=== PATIENT | male | born 1955 | race African-American/Black ===

== ENCOUNTER 2019-11-13 13:55 | Inpatient (IN) ==
[2019-11-13] MEDS ORDERED: ASPIRIN PR ONE (14:11)
[2019-11-13] MEDS ORDERED: ASPIRIN PO ONE (14:11)
--- NOTE | 2019-11-13 14:26 | EKG Report ---
Test Performed on : 11/13/2019 2:11:35 PM Test Reason : SOB Blood Pressure : / mmHG Vent. Rate : 110 BPM Atrial Rate : 110 BPM P-R Int : 134 ms QRS Dur : 094 ms QT Int : 338 ms P-R-T Axes : 069 060 060 degrees QTc Int : 457 ms Sinus tachycardia. Possible Left atrial enlargement Borderline ECG When compared with ECG of 09-SEP-2014 01:34, No significant change was found Unconfirmed Result
[2019-11-13 14:28] LABS: BE 1.5 mmoll (-3.0-3.0); BLOOD TYPE ARTERIAL; HCO3-(ACT) 25.7 mmoll (20.0-26.0); METHB 1.1 % (0.0-1.5); O2(CT) 16.1 mL/dL (15.0-23.0); PCO2(98.6) 34 mmHg (35-45); SAMPLE BLOOD; SAO2 87.6 % (95.0-100.0); THB 13.7 g/dL (11.5-17.4); pH(98.6) 7.47 (7.35-7.45)
[2019-11-13 14:38] LABS: MODALITY ROOM AIR; O2HB 83.7 % (95.0-99.0); PO2(98.6) 46 mmHg (60-100)
[2019-11-13 14:39] LABS: ALLEN TEST NO
[2019-11-13 14:45] LABS: BASO# 0.09 X1000 (0.0-0.2); BASO% 0.5 % (0.0-0.8); EOS# 1.42 X1000 (0.0-0.7); EOS% 8.3 % (0.0-10.0); IMM GRAN# 0.05 X1000 (0.0-0.04); IMM GRAN% 0.3 % (0.0-0.5); LYMPH# 1.77 X1000 (1.2-3.4); LYMPH% 10.3 % (20.5-51.1); MCH 30.1 PG (27-31); MCHC 31.7 g/dL (33-37); MCV 94.9 FL (81-99); MONO# 1.38 X1000 (0.11-0.59); MONO% 8.1 % (1.7-9.3); NEUT# 12.41 X1000 (1.4-6.5); NEUT% 72.5 % (42.2-75.2); PLT 443 X1000 (130-400); RBC 4.32 XMIL (4.7-6.1); RDW 12.4 % (11.5-14.5); WBC 17.12 X1000 (4.8-10.8)
--- NOTE | 2019-11-13 14:52 | Diag Imaging Result Doc PS360 ---
EXAM: CHEST-2 VIEWS - 11/13/2019 HISTORY: SOB TECHNIQUE: Chest two views COMPARISON: 10/27/2019 FINDINGS: Heart size is normal. There are bilateral interstitial and patchy alveolar infiltrates which have increased. There is a possible small right pleural effusion. There is no evidence of pneumothorax. IMPRESSION: Bilateral infiltrates which are increased compared to prior. Electronically signed by Jesus Villegas 11/13/2019 2:50 PM
[2019-11-13 14:59] LABS: INR 0.98; PROTIME 13.5 Seconds (11.0-16.0); PTT 35.4 Seconds (22.3-41.8)
[2019-11-13 15:09] LABS: AGAP 12; ALBUMIN 3.4 g/dL (3.5-5.0); ALKALINE PHOSPHATASE 92 U/L (32-122); BUN 12 mg/dL (8-22); CALCIUM 8.9 mg/dL (8.8-10.2); CHLORIDE 101 mmol/L (98-107); COSMO 276; CREATININE 0.7 mg/dL (0.7-1.2); ESTIMATED GFR > 60; GLUCOSE 110 mg/dL (70-104); GOT 20 U/L (10-34); GPT 26 U/L (10-44); POTASSIUM 4.3 mmol/L (3.5-5.1); SODIUM 138 mmol/L (136-145); TCO2 25 mmol/L (25-35)
--- NOTE | 2019-11-13 16:17 | Diag Imaging Result Doc PS360 ---
EXAM: CT THORAX W/CONTRAST - 11/13/2019 HISTORY: pneumonia TECHNIQUE: CT thorax with intravenous contrast COMPARISON: 11/13/2019 chest radiographs FINDINGS: There are emphysematous changes. There is apparent chronic interstitial lung disease with honeycombing. There are scattered patchy and nodular opacities. One of these, which is located at the lateral right upper lobe, is partially calcified. There are also some calcified right hilar lymph nodes. There is also noncalcified bilateral hilar and mediastinal adenopathy. These findings suggest the possibility of granulomatous disease such as sarcoidosis. The possibility of superimposed infectious process on chronic disease cannot be excluded. There are retained secretions in left upper lobe bronchi. IMPRESSION: Emphysematous changes. Probable chronic interstitial lung disease with honeycombing. Bilateral hilar and mediastinal adenopathy. Sarcoidosis is a consideration. Scattered patchy and nodular opacities which could relate to sarcoidosis, or to other superimposed infectious process. This exam was performed using automated exposure control, adjustment of mA or kV according to patient size, and/or use of iterative reconstruction technique. Electronically signed by Jesus Villegas 11/13/2019 4:15 PM
--- NOTE | 2019-11-13 16:33 | PROVIDER DOCUMENTATION ---
This chart was entered by Amalia Monroy Scribe, acting as scribe for Mitch Lyons MD. HPI-Respiratory General - General Chief Complaint: SEPSIS ALERT - P Stated Complaint: SOB Time Seen by Provider: 11/13/19 14:18 Source: patient, family () Allergies/Adverse Reactions: Patient Allergies Allergy/AdvReac Type Severity Reaction Status Date / Time No Known Allergies Allergy Verified 10/27/19 12:29 Home Medications: Home Medication List Medication Instructions Recorded Confirmed Last Taken Type Azithromycin [Zithromax] 250 mg PO DAILY #4 tab 10/27/19 Unknown Rx Benzonatate [Tessalon] 100 mg PO TID PRN PRN #15 cap 10/27/19 Unknown Rx - History of Present Illness-Resp Nature of Presenting Problem: 64 yobm presents to the ed with c/o sob with exertion for 2 weeks. pt was dx with PNA on 10/27/19 by er physcian and pt sts sx have not improved. pt on triage pt had 85% on RA and now on 2LPM at 95% via NC. pt on exam is happy and pleasant and is nontoxic in appearance. pt sts recently quit smoking Quality of Pain: reports: aching Severity in ED: reports: mild Onset/Duration: reports: other (2 weeks) Timing: reports: still present, getting worse Context: reports: other (recent PNA) Cough Quality/Degree: reports: mild, dry cough Episode Frequency: frequent episodes Current Respiratory Medication Therapy: Initiated see nurses note Modifying Factors: improves with: oxygen, sitting upright. worse with: exertion, coughing Associated Symptoms: reports: chest pain/soreness, cough, hyperventilating, shortness of breath. denies: dizziness, wheezing Similar Symptoms Previously?: Yes (PNA) Recently seen or treated by another doctor?: Yes (seen in ed 10/27/19) Review of Systems - Adult - REVIEW OF SYSTEMS - ADULT Constitutional: denies: chills, fever Eyes: reports: no symptoms reported Ears, Nose, Mouth & Throat: reports: no symptoms reported Cardiovascular: denies: chest pain, palpitations Respiratory: reports: see HPI, cough, dyspnea on exertion, shortness of breath. denies: wheezing Gastrointestinal: denies: diarrhea, nausea, vomiting Genitourinary: reports: no symptoms reported Musculoskeletal: denies: back pain, neck pain Integumentary: reports: no symptoms reported Neurological: reports: no symptoms reported Psychiatric: reports: no symptoms reported Endocrine: reports: no symptoms reported Hematologic/Lymphatic: reports: no symptoms reported Allergic/Immunologic: reports: no symptoms reported All Other Systems: Reviewed and Negative Past History - Adult - PAST MEDICAL HISTORY-ADULT Review of Records: reports: Old Records Reviewed, Nursing Assessment Review, Medications Reviewed, Social history reviewed & non-contributory. Major Childhood Illnesses: reports: denies history Cardiovascular: reports: HTN Respiratory: reports: denies history Gastrointestinal: reports: denies history Genitourinary: reports: denies history Musculoskeletal: reports: denies history Neurological: reports: denies history Psychiatric: reports: denies history Endocrine/Immune: reports: denies history Other Conditions: reports: denies history - PRIOR SURGERIES/PROCEDURES Surgical/Procedure History: reports: none - IMMUNIZATION STATUS Childhood Immunizations: See Nurse Assessment Flu Vaccine: See Nurse Assessment - FAMILY HISTORY Family History: reviewed, not pertinent - SOCIAL HISTORY Smoking: quit less than 1 year Substance Use: denies Living Situation: family Physical Exam-General - PHYSICAL EXAM-ADULT Initial Vital Signs Reviewed: Yes - CONSTITUTIONAL General Appearance: appears well, alert, no apparent distress - EYES Eyes: PERRL/EOMI, pink conjunctivae - HEAD, EARS, NOSE, MOUTH & THROAT HENMT: moist mucous membranes, dental decay - NECK Neck: non-tender, full range of motion, supple, normal inspection - RESPIRATORY Respiratory: chest non-tender, rhonchi, increased rate (24) - CARDIOVASCULAR Cardiovascular: normal peripheral pulses, tachycardia (111) - CHEST (BREASTS) Chest/Breast: deferred - GASTROINTESTINAL (ABDOMEN) Abdominal Exam: normal bowel sounds, non tender, soft - GENITOURINARY Male Genitalia: deferred Rectal Exam: deferred Hemoccult Exam: deferred - LYMPHATIC Lymphatic: no adenopathy - MUSCULOSKELETAL Back Exam: normal inspection, no CVA tenderness, no vertebral tenderness Extremity: normal range of motion, non-tender, normal gait, normal inspection - SKIN Integumentary: normal color, normal turgor, warm/dry - NEUROLOGIC Neurologic: grossly normal - PSYCHIATRIC Psych/Mental Status: normal mood/affect, normal thought content, normal thought process, oriented x 3 Progress - PLAN OF CARE/RESULTS Progress/Plan/Lab Results: Vital Signs - 8 hr 11/13/19 14:03 Temperature 98.6 F Pulse Rate 111 H Respiratory Rate 24 Blood Pressure 146/77 O2 Sat by Pulse Oximetry 85 L Laboratory Results - last 24 hr 11/13/19 11/13/19 11/13/19 14:02 14:33 14:33 WBC RBC Hgb Hct MCV MCH MCHC RDW Std Deviation Plt Count MPV Immature Gran % (Auto) Neut % (Auto) Lymph % (Auto) Riley % (Auto) Eos % (Auto) Baso % (Auto) Immature Gran # (Auto) Neut # (Auto) Lymph # (Auto) Riley # (Auto) Eos # (Auto) Baso # (Auto) PT INR PTT (Actin FS) D-Dimer, Quantitative 2.61 H Specimen Type ARTERIAL Sample Site R BRACHIAL pH 7.47 H pCO2 34 L pO2 46 L* HCO3 25.7 Base Excess 1.5 Oxyhemoglobin 83.7 L* ABG O2 Sat (Calculated) 16.1 ABG O2 Saturation 87.6 L ABG Carboxyhemoglobin 3.40 H ABG Methemoglobin 1.1 Dillan Test NO A-a O2 Difference 61.0 Total Hemoglobin 13.7 Lactate 0.90 Blood Gas Modality ROOM AIR FiO2 % 21.0 Sodium 138 Potassium 4.3 Chloride 101 Carbon Dioxide 25 Anion Gap 12 BUN 12 Creatinine 0.7 Estimated GFR/1.73 m2 > 60 BUN/Creatinine Ratio 17 Glucose 110 H Calculated Osmolality 276 Calcium 8.9 Total Bilirubin 0.30 AST 20 ALT 26 Alkaline Phosphatase 92 Creatine Kinase Troponin T Ylh-C-Scuxcntbfdb Pept Total Protein 7.0 Albumin 3.4 L Globulin 4.0 Albumin/Globulin Ratio 1.0 Plasma Lactate 11/13/19 11/13/19 11/13/19 14:33 14:33 14:33 WBC RBC Hgb Hct MCV MCH MCHC RDW Std Deviation Plt Count MPV Immature Gran % (Auto) Neut % (Auto) Lymph % (Auto) Riley % (Auto) Eos % (Auto) Baso % (Auto) Immature Gran # (Auto) Neut # (Auto) Lymph # (Auto) Riley # (Auto) Eos # (Auto) Baso # (Auto) PT 13.5 INR 0.98 PTT (Actin FS) 35.4 D-Dimer, Quantitative Specimen Type Sample Site pH pCO2 pO2 HCO3 Base Excess Oxyhemoglobin ABG O2 Sat (Calculated) ABG O2 Saturation ABG Carboxyhemoglobin ABG Methemoglobin Dillan Test A-a O2 Difference Total Hemoglobin Lactate Blood Gas Modality FiO2 % Sodium Potassium Chloride Carbon Dioxide Anion Gap BUN Creatinine Estimated GFR/1.73 m2 BUN/Creatinine Ratio Glucose Calculated Osmolality Calcium Total Bilirubin AST ALT Alkaline Phosphatase Creatine Kinase Troponin T < 0.010 Mrd-K-Uxlkiijgclv Pept 48 Total Protein Albumin Globulin Albumin/Globulin Ratio Plasma Lactate 11/13/19 11/13/19 11/13/19 14:33 14:33 14:33 WBC 17.12 H RBC 4.32 L Hgb 13.0 L Hct 41.0 L MCV 94.9 MCH 30.1 MCHC 31.7 L RDW Std Deviation 12.4 Plt Count 443 H MPV 11.0 H Immature Gran % (Auto) 0.3 Neut % (Auto) 72.5 Lymph % (Auto) 10.3 L Riley % (Auto) 8.1 Eos % (Auto) 8.3 Baso % (Auto) 0.5 Immature Gran # (Auto) 0.05 H Neut # (Auto) 12.41 H Lymph # (Auto) 1.77 Riley # (Auto) 1.38 H Eos # (Auto) 1.42 H Baso # (Auto) 0.09 PT INR PTT (Actin FS) D-Dimer, Quantitative Specimen Type Sample Site pH pCO2 pO2 HCO3 Base Excess Oxyhemoglobin ABG O2 Sat (Calculated) ABG O2 Saturation ABG Carboxyhemoglobin ABG Methemoglobin Dillan Test A-a O2 Difference Total Hemoglobin Lactate Blood Gas Modality FiO2 % Sodium Potassium Chloride Carbon Dioxide Anion Gap BUN Creatinine Estimated GFR/1.73 m2 BUN/Creatinine Ratio Glucose Calculated Osmolality Calcium Total Bilirubin AST ALT Alkaline Phosphatase Creatine Kinase 42 Troponin T Bln-F-Urthdiltoyo Pept Total Protein Albumin Globulin Albumin/Globulin Ratio Plasma Lactate 0.9 Orders Category Date Time Status Cardiac Monitoring DIRECTED Care 11/13/19 14:12 Active Oxygen Therapy- ED Nursing DIRECTED Care 11/13/19 14:12 Active Saline Loc NOW Care 11/13/19 14:12 Active CHEST-2 VIEWS [RAD] Stat Exams 11/13/19 14:[address] THORAX W/CONTRAST [CT] Stat Exams 11/13/19 15:13 Completed ABG [RESP] Routine Lab 11/13/19 14:02 Completed BLOOD CULTURE [BLDCUL] Stat Lab 11/13/19 14:20 Ordered CBC WITH ELECTRONIC DIFF [HEME] Stat Lab 11/13/19 14:33 Completed CK PROFILE [SP CHEM] Stat Lab 11/13/19 14:33 Completed COMPREHENSIVE METABOLIC PANEL [CHEM] Stat Lab 11/13/19 14:33 Completed D-DIMER [COAG] Stat Lab 11/13/19 14:33 Completed LACTATE, PLASMA [CHEM] Stat Lab 11/13/19 14:33 Completed PRO B-NATRIURETIC PEPTIDE Stat Lab 11/13/19 14:33 Completed PROTIME WITH INR [COAG] Stat Lab 11/13/19 14:33 Completed PTT [COAG] Stat Lab 11/13/19 14:33 Completed TROPONIN T Stat Lab 11/13/19 14:33 Completed Aspirin Med 11/13/19 14:11 Discontinued 300 mg WV NOW ONE Aspirin Med 11/13/19 14:11 Discontinued 325 mg PO NOW ONE CP/SOB/Palp >45 yrs of Age Stat Oth 11/13/19 14:11 Ordered EKG [EKG] Stat Ther 11/13/19 14:12 Draft Result Diagrams: 11/13/19 14:33 11/13/19 14:33 - REASSESSMENT Reassessment #1 Time Reassessed: 15:36 Status: improving - EKG 1 Time of EKG reading by physician:: 14:11 EKG Read and Signed by:: Mitch Lyons EKG Interpretation (*Must complete 3 of following elements*): Normal (borderline) Rate: 110 Rhythm: sinsu tachycardia Falcon: normal QRS: other (possible left atrial enlargement) W[place] Interval: normal ST Wave: normal - XRAY 1 XRAY: Bilateral XRAY Study: Chest Impression: See EMR Report (EXAM: CHEST-2 VIEWS - 11/13/2019 HISTORY: SOB TECHNIQUE: Chest two views COMPARISON: 10/27/2019 FINDINGS: Heart size is normal. There are bilateral interstitial and patchy alveolar infiltrates which have increased. There is a possible small right pleural effusion. There is no evidence of pneumothorax. IMPRESSION: Bilateral infiltrates which are increased compared to prior. Electronically signed by Jesus Villegas 11/13/2019 2:50 PM 11/13/19 1450 Interpreting Physician: Jesus Villegas MD Dictated Date/Time: 11/13/19 1448 cc: Mitch Lyons MD; None,PCP) - CT/MRI 1 CT Study: Thorax Impression: See EMR Report (EXAM: CT THORAX W/CONTRAST - 11/13/2019 HISTORY: pneumonia TECHNIQUE: CT thorax with intravenous contrast COMPARISON: 11/13/2019 chest radiographs FINDINGS: There are emphysematous changes. There is apparent chronic interstitial lung disease with honeycombing. There are scattered patchy and nodular opacities. One of these, which is located at the lateral right upper lobe, is partially calcified. There are also some calcified right hilar lymph nodes. There is also noncalcified bilateral hilar and mediastinal adenopathy. These findings suggest the possibility of granulomatous disease such as sarcoidosis. The possibility of superimposed infectious process on chronic disease cannot be excluded. There are retained secretions in left upper lobe bronchi. IMPRESSION: Emphysematous changes. Probable chronic interstitial lung disease with honeycombing. Bilateral hilar and mediastinal adenopathy. Sarcoidosis is a consideration. Scattered patchy and nodular opacities which could relate to sarcoidosis, or to other superimposed infectious process. This exam was performed using automated exposure control, adjustment of mA or kV according to patient size, and/or use of iterative reconstruction technique. Electronically signed by Jesus Villegas 11/13/2019 4:15 PM 11/13/19 1615 Interpreting Physician: Jesus Villegas MD Dictated Date/Time: 11/13/19 1600 cc: Mitch Lyons MD; None,PCP) - CONSULTS/PCP/HOSPITALIST Notification #1 *Consult/PCP/Hospitalist*: hospitalist dr maki Time Discussed: 15:57 Consult Disposition: Will see in ED Departure - Departure Date of Disposition Decision: 11/13/19 Time of Disposition Decision: 16:00 DIAGNOSIS: COPD with hypoxia, Interstitial lung disorders PNA (pneumonia) Qualifiers: Pneumonia type: due to unspecified organism Laterality: bilateral Lung locat ion: unspecified part of lung Qualified Code(s): J18.9 - Pneumonia, unspecified organism Disposition: ADMITTED INPATIENT 09 Certified Medical Emergency: Emergent Condition: Stable Referrals and Follow-Ups: None,PCP [Primary Care Provider] - - Critical Care Note This patient required my direct & personal management of CC.: Yes Total Time (mins): 34 Critical Care Statement: This patient required my direct personal management to treat or rule out processes, the absence of which, could potentiallly result in sudden, clinically significant life or limb threatening deterioration. Attestation - Physician/ MILLER Attestation Patient care was provided by Advanced Practice Provider:: No The physician spent face to face time with patient:: Yes Advanced Practice Provider documentation review:: Supervising physician onsite and consulted in the evaluation and care of this patient. The physician did have a face to face encounter with the patient. This chart was documented by the indicated scribe, (Amalia Monroy Scribe) and accurately reflects the services I performed and decisions made by me, Mitch Lyons MD, as attested by the provider's signature.
[2019-11-13] MEDS ORDERED: MAXIPIME 1 GM in NS 50 ML IV SCH (18:36)
[2019-11-13] MEDS ORDERED: TYLENOL PO PRN (18:36)
[2019-11-13] MEDS ORDERED: DUONEB (A & A) INH PRN (18:36)
[2019-11-13] MEDS ORDERED: VANCOMYCIN IV PER PHARMACY MISC SCH (18:36)
[2019-11-13] MEDS ORDERED: MAXIPIME ONE (18:53)
--- NOTE | 2019-11-13 18:53 | HISTORY AND PHYSICAL ---
PRIMARY CARE PROVIDER: Is with the [facility] in [place]. CHIEF COMPLAINT: Shortness of breath. HISTORY OF PRESENT ILLNESS: Mr. Fung is a 64-year-old male who really claims no past medical history however he does abuse tobacco and half pack per day has done so for more than 20 years. He reports he was treated in the ED for pneumonia back on the 27 of October. He felt that he got better with treatment. However a couple days later his shortness of breath returned. [facility]. They gave him I believe Zyrtec and Flonase however his shortness of breath continued to get progressively worse so he reported back to the ED today. His O2 saturations were found to be at 85%. CT of the chest was obtained that showed emphysematous changes, probable chronic interstitial lung disease with honeycombing, bilateral hilar and mediastinal adenopathy sarcoidosis is a consideration, scattered patchy and nodular opacities which could relate to sarcoidosis or other superimposed infectious processes. He does have a white count of 17, he does have a productive cough that had some whitish green sputum, had 2 negative lactates. Given these findings we will transfer him to [facility] further workup by pulmonology continue him on supplemental O2, bronchodilators, aggressive pulmonary toilet and broad-spectrum antibiotics. PAST MEDICAL HISTORY: Tobacco use and abuse. PAST SURGICAL HISTORY: Denies. FAMILY HISTORY: Father with stomach cancer at the age of 88 I believe. Denied any coronary artery disease. No diabetes. SOCIAL HISTORY: He is , is at the bedside. He has a total of 7 children. He is a . He has been a half pack per day smoker for over 20 years maybe more. He quit drinking over 3 years ago. He does not vape. He does not do any marijuana or illicit drugs. 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 He has never been diagnosed with TB. PHYSICAL EXAMINATION: VITAL SIGNS: Temperature is 98.6 degrees, heart rate 104, respiration 26, blood pressure 152/80, O2 is 94% on 2 L nasal cannula. GENERAL: Mr. Fung is a pleasant 64-year-old male who is sitting up in the bed in no acute distress. He does have a productive cough spitting out some whitish greenish sputum, very pleasant demeanor. HEENT: Atraumatic, normocephalic. PERRL. NECK: Supple. Trachea midline. CARDIOVASCULAR: S1, S2 appreciated. No murmurs, gallops, or rubs noted. RESPIRATORY: Lung sounds scattered rhonchi throughout all lung lopez. Could not appreciate any wheezes. GI: Flat, soft, nontender, nondistended. Positive bowel sounds 4 quads. Lower extremities were negative for edema. NEURO: There were no focal deficits, very pleasant. DIAGNOSTIC DATA: Chest CT emphysema changes, probable chronic interstitial lung disease with honeycombing, bilateral hilar and mediastinal adenopathy, sarcoidosis is a consideration, scattered patchy nodular opacities which could relate to sarcoidosis or other superimposed infectious process. LABORATORY DATA: White count 17, hemoglobin and hematocrit 13 and 41, platelet count is 443,000, ABG pH was 7.47, pCO2 34, PO2 46, base excess was 1.5, oxyhemoglobin 87, O2 saturation was 87.6% on room air. Sodium 138, potassium 4.3, BUN 12, creatinine 0.7, blood glucose is 110. Troponin was less than 0.010, albumin was 3.4. First lactate 0.8, second lactate 0.8. EKG sinus tachycardia with possible left atrial enlargement at 110 beats per minute. ASSESSMENT AND PLAN: 1. Hypoxemia upon arrival improved with supplemental O2. 2. Probable chronic interstitial lung disease with honeycombing and bilateral hilar and mediastinal adenopathy. We will consult Pulmonology. Patient denies any diagnosis of any lung disease prior. 3. Probable superimposed infectious process in the lungs. He was recently diagnosed with pneumonia. He continues to be short of breath. He does have a very productive cough. We will start him on broad-spectrum antibiotics. He did have an elevated white count, will continue with bronchodilators and aggressive pulmonary toilet. Will check a sputum culture and blood cultures as well. 4. Emphysematous changes is seen on CT scan. 5. Tobacco use and abuse. We did discuss smoking cessation. Patient will need continue daily education. 6. Further recommendation to follow physician evaluation, laboratory and diagnostic data. Dictated by JOE Miller for Amadou Ortiz MD cc: Jose Ignacio MD
[2019-11-13] MEDS ORDERED: MAXIPIME 2 GM/NS 2 GM/100 ML IVPB IV ONE (18:54)
[2019-11-13] MEDS ORDERED: NS 100 ML ONE (18:54)
[2019-11-13] MEDS ORDERED: MAXIPIME 2 GM in NS 100 ML IV ONE (19:00)
--- NOTE | 2019-11-13 19:30 | HISTORY AND PHYSICAL ---
ADDENDUM: Patient seen and examined by myself. Full note dictated and discussed with nurse practitioner. Patient has had increased shortness of breath and coughing for the past 2 weeks. It seems to be worsening. Denies any true production to his cough. Denies any fever. He has been treated with antibiotics, but did not get better. He went to the [facility] and was placed on Zyrtec, which did not help. Therefore, he came to the ER. CT shows chronic emphysematous changes as well as interstitial lung disease with honeycombing, and bilateral hilar and mediastinal adenopathy, consistent with probable sarcoidosis. We are going to admit him to the hospital, place him on antibiotics for now. We will consult Pulmonology and will follow. cc: Amadou Ortiz MD
[2019-11-13] MEDS: DUONEB (A & A) INH SCH ×2 (20:28→23:04)
[2019-11-13] MEDS: ZOFRAN IV PRN (20:51)
[2019-11-13] MEDS ORDERED: VANCOMYCIN 2,250 MG in NS 500 ML IV ONE (22:00)
[2019-11-14] MEDS: DUONEB (A & A) INH SCH ×6 (03:08→23:30)
[2019-11-14 05:48] LABS: BASO# 0.09 X1000 (0.0-0.2); BASO% 0.5 % (0.0-0.8); EOS# 2.13 X1000 (0.0-0.7); EOS% 12.2 % (0.0-10.0); HEMATOCRIT 36.7 % (42.0-52.0); HEMOGLOBIN 11.7 g/dL (14.0-18.0); IMM GRAN# 0.06 X1000 (0.0-0.04); IMM GRAN% 0.3 % (0.0-0.5); LYMPH# 1.55 X1000 (1.2-3.4); LYMPH% 8.9 % (20.5-51.1); MCH 30.5 PG (27-31); MCHC 31.9 g/dL (33-37); MCV 95.8 FL (81-99); MONO# 1.27 X1000 (0.11-0.59); MONO% 7.3 % (1.7-9.3); MPV 11.5 FL (7.4-10.4); NEUT# 12.36 X1000 (1.4-6.5); NEUT% 70.8 % (42.2-75.2); PLT 397 X1000 (130-400); RBC 3.83 XMIL (4.7-6.1); RDW 12.4 % (11.5-14.5); WBC 17.46 X1000 (4.8-10.8)
[2019-11-14 05:54] LABS: AGAP 11; ALB/GLOB RATIO 0.7; ALBUMIN 2.5 g/dL (3.5-5.0); ALKALINE PHOSPHATASE 84 U/L (32-122); BUN 11 mg/dL (8-22); CALCIUM 8.1 mg/dL (8.8-10.2); CHLORIDE 102 mmol/L (98-107); COSMO 277; CREATININE 0.8 mg/dL (0.7-1.2); ESTIMATED GFR > 60; GLUCOSE 101 mg/dL (70-104); GOT 25 U/L (10-34); GPT 24 U/L (10-44); POTASSIUM 3.9 mmol/L (3.5-5.1); SODIUM 139 mmol/L (136-145); TCO2 26 mmol/L (25-35); TOTAL BILIRUBIN 0.31 mg/dL (0.20-1.00); TOTAL PROTEIN 6.1 g/dL (6.3-8.3)
[2019-11-14 07:45] LABS: EOS 16 % (1-10); LYMPHS 6 % (21-51); SEGS 76 % (42-75)
--- NOTE | 2019-11-14 08:36 | Diag Imaging Result Doc PS360 ---
CHEST-2 VIEWS - 11/14/2019 INDICATION: Pneumonia COMPARISON: 11/13/2019 FINDINGS: There are stable heterogeneous primarily interstitial infiltrates diffusely and bilaterally. Stable bilateral hilar enlargement. No new infiltrates. No pneumothorax or large pleural effusion. Heart size remains normal. IMPRESSION: No change from prior. Electronically signed by David Gay 11/14/2019 8:34 AM
[2019-11-14] MEDS: MAXIPIME 1 GM in NS 50 ML IV SCH ×2 (11:35→21:53)
[2019-11-14] MEDS: ZOFRAN IV PRN (11:35)
--- NOTE | 2019-11-14 14:02 | PROGRESS NOTE ---
DATE: 11/14/2019 SUBJECTIVE: Patient reports feeling, according to him, tremendously much better in comparing with yesterday. He is requiring oxygen but non-rebreather mask. OBJECTIVE: Vital Signs: Temperature 98.3 degrees, heart rate 61, respiratory rate 18, blood pressure 121/64, O2 saturation 98% on non-rebreather mask 15 L/minute. General Examination: This is a 64-year-old male, lying in bed, in no acute distress. Cardiovascular: S1, S2 heard. No murmurs, gallops, or rubs. Regular rate and rhythm. Respiratory: Some scattered rhonchi all over both pulmonary lopez. No wheezing, no crackles. Patient is not using any accessory muscles or having work of breathing. Abdomen: Soft, nontender to palpation. Bowel sounds present. No organomegaly. Extremities: No clubbing, cyanosis, or edema. Peripheral pulses present in both legs. Neurological: Patient is alert and oriented x3. Moves 4 extremities. LABORATORY DATA REVIEW: CT of the chest showed emphysema, probably chronic interstitial lung disease with honeycombing on bilateral hilar mediastinal adenopathy. ASSESSMENT AND PLAN: 1. Acute respiratory failure, secondary to possible interstitial lung disease. Patient is being treated for pneumonia. He is on vancomycin and cefepime. He reports feeling much better. We will continue with the same management. 2. Tobacco abuse. Patient reports quitting smoking a couple weeks ago. He has been smoking half to one pack per day the last 20 years. The patient advised about stopping smoking. 3. Disposition: We will continue with the current management. We are awaiting pulmonary recommendations. cc: Imtiaz Taylor MD
[2019-11-14] MEDS: VANCOMYCIN 2 GM in NS 500 ML IV SCH (16:01)
[2019-11-14] MEDS: PREDNISONE PO SCH (16:02)
[2019-11-14] MEDS: ZITHROMAX PO SCH (17:28)
--- NOTE | 2019-11-14 18:56 | PULMONOLOGY CONSULTATION ---
DATE: 11/14/2019 REQUESTING CLINICIAN: Dr. Jose. REASON FOR CONSULTATION: Possible interstitial lung disease, possible sarcoidosis, possible pneumonia. HISTORY OF PRESENT ILLNESS: Mr. Fung is a 64-year-old, white male, with a 40 pack-year history for tobacco (1 pack per day since the age of 23) who reports he was in good health and continues to actively work. The patient was evaluated in the emergency room 10/08/2019, and again 09/06/2019, with a cough. Chest x-ray at the end of September, was clear and without infiltrates. He was diagnosed with cough and treated with guaifenesin and steroids. The patient returned to the emergency room 10 days later, with ongoing cough and minimal sputum production. He had no other complaints. Chest x-ray reveals ill-defined infiltrate at the right base, and he was discharged on Augmentin, Zithromax (4 tablets), and Tessalon. He reports [facility] after [facility], and received some Zyrtec and Flonase. He returned to the emergency room today, with ongoing cough, minimal sputum production, with increasing shortness of breath. He denies fevers or chills. He has minimal sputum production. He continues to smoke as outlined above. 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 He denies vaping. He denies recent travel. He denies history of TB exposure. He denies unusual hobbies and has no pets. PREVIOUS SURGERIES: None. CHRONIC MEDICATIONS: None. ALLERGIES: None SOCIAL HISTORY: Ongoing tobacco use as per above. He previously served in the [email or web address]. He reports he has not had significant alcohol use in several years. FAMILY HISTORY: Notable for gastric cancer in his father. REVIEW OF SYSTEMS: As noted in the HPI. Patient reports he was well until 2 to 3 weeks ago. PHYSICAL EXAMINATION: General: A thin black male resting comfortably and in no distress. BP 121/60, heart rate 86, respiratory rate 18, oxygen saturation 100%. HEENT: Pupils are equal and reactive. Oropharynx appears clear. Neck: Supple. Chest: Rhonchi bilaterally without diffuse crackles. Cardiac: Regular rate. Normal S1, normal S2. Abdomen: Soft. Extremities: Without edema. LABORATORIES: White blood count 17.46, hemoglobin 11.7, platelet count 397,000, eosinophilic percent is 12.2%, eosinophil number is 2130. INCOMPLETE REPORT - DICTATION ENDS HERE cc: Jose Ignacio MD
--- NOTE | 2019-11-14 19:11 | PULMONOLOGY CONSULTATION ---
DATE: 11/14/2019 CONTINUATION REPORT: DIAGNOSTIC DATA: CT scan of the thorax reveals bilateral emphysematous changes, increased interstitial infiltrates, evidence of prior granulomatous disease, mild adenopathy, with increased interstitial markings and areas of consolidation/nodular opacities. IMPRESSION: A 64-year-old male with history of tobacco use with relatively progressive pulmonary infiltrates with consolidation beginning over the last 2 weeks. The patient has received a course of antibiotics covering both typical and atypical pathogens without improvement of his symptoms. He now presents with a CT scan revealing emphysema, increased interstitial markings, and areas of consolidation. Initial concern would be cancer with lymphangitic spread, but the time course would not be typical for this process. He does not have symptoms to suggest that this is a progressive interstitial lung disease because that would be a more protracted course. An acute sarcoidosis may be present, but he has significant eosinophilia on presentation. This most likely represents an acute eosinophilic pneumonia or bronchiolitis obliterans organizing pneumonia. Both diseases would be treated similarly. 1. Acute eosinophilic pneumonia. 2. Acute hypoxemic respiratory failure. 3. Nicotine addiction with ongoing tobacco use. 4. Abnormal CT scan as outlined above. RECOMMENDATIONS: 1. Initiate steroids. I will place him on prednisone. 2. Initiate an antibiotic for atypical pathogens. 3. Continue oxygen for hypoxemic respiratory failure. 4. Follow up CBC tomorrow to demonstrate suppression of eosinophilia. 5. Ongoing counseling about the need to stop tobacco use. 6. The patient will need a followup CT scan once his chest x-ray has cleared, documenting resolution of the multiple nodular infiltrates. cc: Jose Ignacio MD
[2019-11-15] MEDS: DUONEB (A & A) INH SCH ×6 (03:20→23:05)
[2019-11-15 05:45] LABS: BASO# 0.02 X1000 (0.0-0.2); BASO% 0.2 % (0.0-0.8); EOS# 0.05 X1000 (0.0-0.7); EOS% 0.5 % (0.0-10.0); HEMATOCRIT 35.2 % (42.0-52.0); IMM GRAN# 0.02 X1000 (0.0-0.04); IMM GRAN% 0.2 % (0.0-0.5); LYMPH# 0.98 X1000 (1.2-3.4); LYMPH% 9.4 % (20.5-51.1); MCH 30.3 PG (27-31); MCHC 31.3 g/dL (33-37); MONO% 4.8 % (1.7-9.3); MPV 11.4 FL (7.4-10.4); NEUT# 8.91 X1000 (1.4-6.5); NEUT% 84.9 % (42.2-75.2); PLT 430 X1000 (130-400); RBC 3.63 XMIL (4.7-6.1); RDW 12.4 % (11.5-14.5); WBC 10.48 X1000 (4.8-10.8)
[2019-11-15 06:03] LABS: AGAP 11; BUN 11 mg/dL (8-22); CALCIUM 8.6 mg/dL (8.8-10.2); CHLORIDE 104 mmol/L (98-107); COSMO 287; CREATININE 0.7 mg/dL (0.7-1.2); ESTIMATED GFR > 60; GLUCOSE 138 mg/dL (70-104); POTASSIUM 3.9 mmol/L (3.5-5.1); SODIUM 143 mmol/L (136-145); TCO2 28 mmol/L (25-35)
[2019-11-15] MEDS: ZITHROMAX PO SCH (08:32)
[2019-11-15] MEDS: PREDNISONE PO SCH (08:32)
[2019-11-15] MEDS: MAXIPIME 1 GM in NS 50 ML IV SCH ×2 (09:08→20:59)
--- NOTE | 2019-11-15 10:31 | PROGRESS NOTE ---
DATE: 11/15/2019 SUBJECTIVE: The patient reports feeling better, breathing better, even though he is still requiring oxygen by non-rebreather mask. No other complaints noted. OBJECTIVE: Vital Signs: Temperature 98.1 degrees, heart rate 96, respiratory rate 18, blood pressure 99/49, O2 saturation 97% on 2 L nasal cannula. General: This is a 64-year-old, male, lying in bed in no acute distress. Cardiovascular: S1 and S2 heard. No murmurs, gallops, or rubs. Regular rate and rhythm. Respiratory: Scattered rhonchi. Some wheezing all over both pulmonary lopez. The patient is not using any accessory muscles or having work of breathing. Abdomen: Soft, nontender to palpation. Bowel sounds present. No organomegaly. Extremities: No clubbing, cyanosis, or edema. Peripheral pulses present in both legs. Neurological: The patient is alert and oriented x3. Moves all 4 extremities. LABORATORY DATA: Reviewed. White cell count has decreased from 17,000 to 10.4 today. BMP unremarkable. ASSESSMENT AND PLAN: 1. Acute respiratory failure secondary to eosinophilic pneumonia. Dr. Ignacio from Pulmonary has been consulted. The patient currently is on vancomycin and cefepime, and azithromycin has been added to his current treatment, as well as steroids. The goal is to suppress the eosinophils and CBCs, so at this point, will continue with the same management. 2. Tobacco abuse. The patient has been recommended to quit smoking. 3. Disposition. Will continue with the current management. cc: Imtiaz Taylor MD
--- NOTE | 2019-11-15 10:56 | Diag Imaging Result Doc PS360 ---
CHEST-2 VIEWS - 11/15/2019 INDICATION: resp. failure COMPARISON: 11/14/2019 FINDINGS: There is severe diffuse coarse infiltrate bilaterally. This is essentially unchanged from prior. Heart size is top normal. No pneumothorax or pleural effusion. IMPRESSION: No change from prior. Electronically signed by David Gay 11/15/2019 10:54 AM
[2019-11-15] MEDS: VANCOMYCIN 2 GM in NS 500 ML IV SCH (11:45)
--- NOTE | 2019-11-15 22:01 | PULMONOLOGY PROGRESS NOTE ---
DATE: 11/15/2019 SUBJECTIVE: The patient is awake, alert, and conversant. He reports he feels significantly better today. His shortness of breath is resolving. OBJECTIVE: Vital Signs: Blood pressure 122/66, heart rate 68, respiratory rate 18, oxygen saturation 97% on 5 L per nasal cannula. HEENT: Pupils are equal and reactive. Oropharynx appears clear. Neck: Supple. Chest: Reveals faint crackles in the lung bases. Cardiac: S1, S2. Abdomen: Soft. Extremities: Without edema. LABORATORIES: Chest x-ray reveals coarse infiltrates bilaterally without change. IMPRESSION: 64-year-old male with extensive tobacco history who had a chest x-ray 10/16 with no infiltrates. The patient developed infiltrates on the chest x-ray 10/27 with progression on evaluation in the emergency room 11/13/2019. CT scan reveals patchy areas of consolidation and with his history, this is most likely felt to represent bronchiolitis obliterans or an acute eosinophilic pneumonia given his significant eosinophilia on presentation. He is improving with steroids. The patient reports he may require transfer to the [facility]. PLAN: 1. Continue current antibiotic regimen. 2. Continue current steroid dosing. 3. The patient will need long-term course of steroids along with a followup CT scan. This could be performed in my clinic or can be managed by the SD. cc: Jose Ignacio MD
[2019-11-16] MEDS: VANCOMYCIN 2 GM in NS 500 ML IV SCH (03:10)
[2019-11-16] MEDS: DUONEB (A & A) INH SCH ×6 (03:36→23:30)
[2019-11-16 05:38] LABS: BASO# 0.04 X1000 (0.0-0.2); BASO% 0.3 % (0.0-0.8); EOS# 1.45 X1000 (0.0-0.7); EOS% 9.1 % (0.0-10.0); HEMATOCRIT 33.4 % (42.0-52.0); HEMOGLOBIN 10.4 g/dL (14.0-18.0); IMM GRAN# 0.03 X1000 (0.0-0.04); IMM GRAN% 0.2 % (0.0-0.5); LYMPH# 2.03 X1000 (1.2-3.4); LYMPH% 12.7 % (20.5-51.1); MCH 30.4 PG (27-31); MCHC 31.1 g/dL (33-37); MCV 97.7 FL (81-99); MONO# 0.87 X1000 (0.11-0.59); MONO% 5.4 % (1.7-9.3); MPV 11.2 FL (7.4-10.4); NEUT# 11.57 X1000 (1.4-6.5); NEUT% 72.3 % (42.2-75.2); PLT 414 X1000 (130-400); RBC 3.42 XMIL (4.7-6.1); RDW 12.3 % (11.5-14.5); WBC 15.99 X1000 (4.8-10.8)
[2019-11-16 05:51] LABS: AGAP 11; BUN 11 mg/dL (8-22); CHLORIDE 105 mmol/L (98-107); COSMO 284; CREATININE 0.6 mg/dL (0.7-1.2); ESTIMATED GFR > 60; GLUCOSE 86 mg/dL (70-104); POTASSIUM 3.6 mmol/L (3.5-5.1); SODIUM 143 mmol/L (136-145); TCO2 27 mmol/L (25-35)
[2019-11-16] MEDS: PREDNISONE PO SCH (08:13)
[2019-11-16] MEDS: ZITHROMAX PO SCH (08:13)
[2019-11-16] MEDS: MAXIPIME 1 GM in NS 50 ML IV SCH ×2 (09:26→22:50)
[2019-11-16 11:20] LABS: ALLEN TEST YES; BE 3.1 mmoll (-3.0-3.0); BLOOD TYPE ARTERIAL; HCO3-(ACT) 27.3 mmoll (20.0-26.0); METHB 1.1 % (0.0-1.5); O2(CT) 15.5 mL/dL (15.0-23.0); O2HB 96.7 % (95.0-99.0); PCO2(98.6) 46 mmHg (35-45); PO2(98.6) 105 mmHg (60-100); SAMPLE BLOOD; SAO2 99.6 % (95.0-100.0); THB 11.3 g/dL (11.5-17.4)
[2019-11-16 11:21] LABS: MODALITY PRB
--- NOTE | 2019-11-16 16:07 | PROGRESS NOTE ---
DATE: 11/16/2019 SUBJECTIVE: This patient reports feeling better. Requiring less oxygen supplementation. He is requiring now oxygen by nasal cannula 5 L. No other complaints noted. He reports that he is able to walk around more without getting short of breath. OBJECTIVE: Vital Signs: Temperature 98.1 degrees, heart rate 98, respiratory rate 16, blood pressure 146/63, O2 saturation 95% on 5 L nasal cannula. General: This is a 64-year-old male, lying in bed, in no acute distress. Cardiovascular: S1, S2 heard. No murmurs, gallops, or rubs. Regular rate and rhythm. Respiratory: There is still some scattered rhonchi. No wheezing noted in both lung bases. Patient not using any accessory muscles or having work of breathing. Abdomen: Soft. Nontender to palpation. Bowel sounds present. No organomegaly. Extremities: No clubbing, cyanosis, or edema. Peripheral pulses present in both legs. Neurological: Patient is alert and oriented x3. Moves four extremities. LABORATORY DATA: Reviewed. ASSESSMENT AND PLAN: 1. Acute respiratory failure secondary eosinophilic pneumonia. Clinically this patient is doing fine. Requiring less oxygen supplementation. Currently the patient continues to be on vancomycin, cefepime, and azithromycin. Also, receiving prednisone 30 mg orally daily. At this point, we will continue with the same management. Dr. Ignacio from Pulmonary is following this patient. We will follow recommendations. 2. Tobacco abuse. Patient recommended to quit smoking. 3. Disposition. We will continue with current management following the lead from Pulmonary. cc: Imtiaz Taylor MD
[2019-11-17] MEDS: VANCOMYCIN 2 GM in NS 500 ML IV SCH (00:07)
[2019-11-17] MEDS: DUONEB (A & A) INH SCH ×6 (02:40→23:13)
[2019-11-17 03:44] LABS: ALLEN TEST YES; BE 6.6 mmoll (-3.0-3.0); BLOOD TYPE ARTERIAL; HCO3-(ACT) 29.8 mmoll (20.0-26.0); METHB 1.1 % (0.0-1.5); O2(CT) 13.4 mL/dL (15.0-23.0); PCO2(98.6) 40 mmHg (35-45); SAMPLE BLOOD; SAO2 88.3 % (95.0-100.0); THB 11.2 g/dL (11.5-17.4); pH(98.6) 7.49 (7.35-7.45)
[2019-11-17 03:47] LABS: PO2(98.6) 47 mmHg (60-100)
[2019-11-17 03:48] LABS: MODALITY CANNULA; O2HB 85.3 % (95.0-99.0)
[2019-11-17 05:20] LABS: BASO% 0.5 % (0.0-0.8); EOS# 1.77 X1000 (0.0-0.7); EOS% 9.6 % (0.0-10.0); HEMATOCRIT 33.5 % (42.0-52.0); HEMOGLOBIN 10.6 g/dL (14.0-18.0); IMM GRAN# 0.06 X1000 (0.0-0.04); IMM GRAN% 0.3 % (0.0-0.5); LYMPH# 1.77 X1000 (1.2-3.4); LYMPH% 9.6 % (20.5-51.1); MCH 30.5 PG (27-31); MCHC 31.6 g/dL (33-37); MCV 96.5 FL (81-99); MONO% 7.6 % (1.7-9.3); MPV 11.3 FL (7.4-10.4); NEUT# 13.28 X1000 (1.4-6.5); NEUT% 72.4 % (42.2-75.2); PLT 459 X1000 (130-400); RBC 3.47 XMIL (4.7-6.1); RDW 12.4 % (11.5-14.5); WBC 18.38 X1000 (4.8-10.8)
[2019-11-17 05:32] LABS: AGAP 9; BUN 11 mg/dL (8-22); CALCIUM 8.1 mg/dL (8.8-10.2); CHLORIDE 102 mmol/L (98-107); COSMO 275; CREATININE 0.6 mg/dL (0.7-1.2); ESTIMATED GFR > 60; GLUCOSE 91 mg/dL (70-104); POTASSIUM 3.1 mmol/L (3.5-5.1); SODIUM 138 mmol/L (136-145); TCO2 27 mmol/L (25-35)
[2019-11-17 05:38] LABS: EOS 4 % (1-10); LYMPHS 20 % (21-51); MONO 6 % (1-9); SEGS 68 % (42-75)
[2019-11-17] MEDS: ZITHROMAX PO SCH (09:14)
[2019-11-17] MEDS: MAXIPIME 1 GM in NS 50 ML IV SCH ×2 (09:14→22:17)
[2019-11-17] MEDS: PREDNISONE PO SCH (09:14)
--- NOTE | 2019-11-17 10:42 | Diag Imaging Result Doc PS360 ---
EXAM: CHEST-1 VIEW 11/17/2019 HISTORY: SOB TECHNIQUE: AP portable at 1035 COMMENT: There is patchy alveolar opacity bilaterally which appears slightly worse than on the previous study of 11/15/2019. IMPRESSION: Worsening pulmonary edema and/or pneumonia. Electronically signed by Ramon Corona 11/17/2019 10:40 AM
[2019-11-17] MEDS ORDERED: LASIX IV ONE (10:46)
[2019-11-17 10:48] LABS: ALLEN TEST YES; BE 6.1 mmoll (-3.0-3.0); BLOOD TYPE ARTERIAL; HCO3-(ACT) 29.6 mmoll (20.0-26.0); METHB 1.2 % (0.0-1.5); MODALITY VENTIMASK; O2(CT) 14.6 mL/dL (15.0-23.0); O2HB 92.8 % (95.0-99.0); PCO2(98.6) 43 mmHg (35-45); PO2(98.6) 64 mmHg (60-100); SAMPLE BLOOD; SAO2 96.5 % (95.0-100.0); THB 11.2 g/dL (11.5-17.4); pH(98.6) 7.46 (7.35-7.45)
[2019-11-17] MEDS ORDERED: VANCOMYCIN 2 GM in NS 500 ML IV SCH (12:00)
[2019-11-17] MEDS: PROTONIX IV SCH (13:23)
[2019-11-17] MEDS: SODIUM CHLORIDE 0.9% INJ SCH (13:23)
--- NOTE | 2019-11-17 16:15 | PROGRESS NOTE ---
DATE: 11/17/2019 SUBJECTIVE: The patient reports breathing better. He is requiring now a non-rebreather mask. OBJECTIVE: Vital Signs: Temperature 97.7, heart rate 107, respiratory rate 17, blood pressure 145/75, O2 saturation 96% on non-rebreather mask. General: This is a 64-year-old male, lying in bed, in no acute distress. Cardiovascular: S1 and S2 heard. No murmurs, gallops, or rubs. Regular rate and rhythm. Respiratory: Scattered rhonchi and wheezing noted in both pulmonary bases. Patient not using any accessory muscles or having work of breathing. Abdomen: Soft, nontender to palpation. Bowel sounds present. No organomegaly. Extremities: No clubbing, cyanosis, or edema. Peripheral pulses present in both legs. Neurological: Patient is alert and oriented x3. Moves 4 extremities. LABORATORY DATA: White cell count is 18.38 with ABG that shows pH 7.46 with pCO2 43, PO2 64 that was taken on Ventimask at 50% with potassium 3.1. ASSESSMENT AND PLAN: 1. Acute hypoxemic respiratory failure secondary to eosinophilic pneumonia. The patient has most likely developed pulmonary edema. Also, patient has been requiring a little more oxygen since presentation than yesterday. Pulmonary has evaluated this patient and decided to transfer to the intensive care unit. One dose of Lasix has been ordered and we will repeat the x-ray tomorrow. We will change prednisone to Solu-Medrol, will continue with current antibiotic management with vancomycin, cefepime and azithromycin. We appreciate pulmonary input. 2. Tobacco abuse. Patient continues to be advised to stop smoking. 3. Disposition. We will continue to monitor this patient here today in intensive care unit. If he is feeling better, he can be transferred back to a regular room. cc: Imtiaz Taylor MD
[2019-11-17] MEDS: SOLU-MEDROL IV SCH ×2 (16:39→22:46)
[2019-11-18] MEDS: DUONEB (A & A) INH SCH ×6 (03:45→23:05)
[2019-11-18 04:42] LABS: ALLEN TEST YES; BLOOD TYPE ARTERIAL; HCO3-(ACT) 29.6 mmoll (20.0-26.0); METHB 0.8 % (0.0-1.5); O2(CT) 15.7 mL/dL (15.0-23.0); O2HB 96.6 % (95.0-99.0); PCO2(98.6) 47 mmHg (35-45); PO2(98.6) 95 mmHg (60-100); SAMPLE BLOOD; SAO2 99.3 % (95.0-100.0); THB 11.5 g/dL (11.5-17.4); pH(98.6) 7.43 (7.35-7.45)
[2019-11-18 04:43] LABS: MODALITY VENTIMASK
[2019-11-18 06:01] LABS: BASO# 0.01 X1000 (0.0-0.2); BASO% 0.1 % (0.0-0.8); HEMATOCRIT 34.2 % (42.0-52.0); HEMOGLOBIN 10.8 g/dL (14.0-18.0); IMM GRAN# 0.03 X1000 (0.0-0.04); IMM GRAN% 0.2 % (0.0-0.5); LYMPH# 0.75 X1000 (1.2-3.4); LYMPH% 5.2 % (20.5-51.1); MCH 30.3 PG (27-31); MCHC 31.6 g/dL (33-37); MCV 96.1 FL (81-99); MONO# 0.26 X1000 (0.11-0.59); MONO% 1.8 % (1.7-9.3); MPV 11.7 FL (7.4-10.4); NEUT# 13.43 X1000 (1.4-6.5); NEUT% 92.7 % (42.2-75.2); PLT 485 X1000 (130-400); RBC 3.56 XMIL (4.7-6.1); RDW 12.7 % (11.5-14.5); WBC 14.48 X1000 (4.8-10.8)
[2019-11-18 06:26] LABS: AGAP 12; BUN 13 mg/dL (8-22); CALCIUM 8.4 mg/dL (8.8-10.2); CHLORIDE 101 mmol/L (98-107); COSMO 282; CREATININE 0.6 mg/dL (0.7-1.2); ESTIMATED GFR > 60; GLUCOSE 150 mg/dL (70-104); POTASSIUM 3.9 mmol/L (3.5-5.1); SODIUM 140 mmol/L (136-145); TCO2 27 mmol/L (25-35)
[2019-11-18 07:08] LABS: EOS 1 % (1-10); LYMPHS 5 % (21-51); SEGS 94 % (42-75)
[2019-11-18] MEDS: SOLU-MEDROL IV SCH ×3 (07:23→23:43)
--- NOTE | 2019-11-18 07:52 | Diag Imaging Result Doc PS360 ---
EXAM: CHEST-2 VIEWS HISTORY: pulmonary edema TECHNIQUE: Two views COMPARISON: 11/17/2019 FINDINGS: The lungs are well expanded. There are bilateral infiltrates. These are less pronounced. No cardiomegaly. No pleural effusions. IMPRESSION: Interval improvement Electronically signed by Tristan Mason 11/18/2019 7:49 AM
[2019-11-18] MEDS: ZITHROMAX PO SCH (10:07)
[2019-11-18] MEDS: MAXIPIME 1 GM in NS 50 ML IV SCH ×2 (10:07→21:06)
--- NOTE | 2019-11-18 10:14 | PROGRESS NOTE ---
DATE: 11/18/2019 SUBJECTIVE: Patient reports breathing better. Not requiring oxygen by nasal cannula 5 liters per minute. No acute issues noted as per nursing staff overnight. OBJECTIVE: Vital Signs: Temperature 97.6 degrees, heart rate 92, respiratory rate 20, blood pressure 123/74, O2 saturation 95% on 5 L nasal cannula. General examination: This is a 64-year- old male, lying in bed in no acute distress. Cardiovascular exam: S1, S2 heard. No murmurs, gallops, or rubs. Regular rate and rhythm. Respiratory exam: Rhonchi with some minimal wheezing noted in both pulmonary lopez (mostly), but the patient is not using any accessory muscles or having work of breathing. Abdomen: Soft, nontender to palpation. Bowel sounds present. No organomegaly. Extremities: No clubbing, cyanosis, or edema. Peripheral pulses present in both legs. Neurological exam: The patient is alert, oriented x3. LABORATORY DATA: White cell count is 14.48, hemoglobin 10.8, hematocrit 34.2, platelets 488. ABG shows pH 7.42 with pCO2 of 47, PO2 95. That sample was taken with a Ventimask at 50% and normal BMP. ASSESSMENT AND PLAN: 1. Acute hypoxemic respiratory failure secondary to eosinophilic pneumonia. Clinically, this patient is improving. He has been transferred to intensive care unit yesterday. He has received 1 dose of Lasix. The x-ray from today showed bilateral infiltrates, but less pronounced. Also his oxygen needs are getting better. Requiring Ventimask. I ordered another chest x-ray today requiring 5 L of oxygen by nasal cannula. So, at this point, we will continue with Solu-Medrol. Current antibiotic management with vancomycin, Ceftin and azithromycin. I think patient is stable, so we will transfer him to our PVC unit today. 2. Pulmonary is following this patient for further recommendation. 3. Tobacco abuse. Patient continues to be recommended to quit smoking. 4. Disposition: As we mentioned before, the patient will be moved out to the intensive care unit to our PVC unit today. cc: Imtiaz Taylor MD
[2019-11-18] MEDS: SODIUM CHLORIDE 0.9% INJ SCH (16:00)
[2019-11-18] MEDS: PROTONIX IV SCH (16:00)
[2019-11-19] MEDS: DUONEB (A & A) INH SCH ×6 (03:10→23:14)
[2019-11-19 03:59] LABS: ALLEN TEST YES; BE 8.6 mmoll (-3.0-3.0); BLOOD TYPE ARTERIAL; HCO3-(ACT) 31.5 mmoll (20.0-26.0); O2(CT) 13.5 mL/dL (15.0-23.0); O2HB 90.8 % (95.0-99.0); PCO2(98.6) 43 mmHg (35-45); PO2(98.6) 53 mmHg (60-100); SAMPLE BLOOD; SAO2 94.8 % (95.0-100.0); THB 10.6 g/dL (11.5-17.4); pH(98.6) 7.49 (7.35-7.45)
[2019-11-19 04:00] LABS: MODALITY CANNULA
[2019-11-19 06:12] LABS: EOS# 0.01 X1000 (0.0-0.7); EOS% 0.1 % (0.0-10.0); HEMATOCRIT 33.2 % (42.0-52.0); HEMOGLOBIN 10.3 g/dL (14.0-18.0); IMM GRAN# 0.07 X1000 (0.0-0.04); IMM GRAN% 0.4 % (0.0-0.5); MCH 29.9 PG (27-31); MCV 96.5 FL (81-99); MONO% 3.3 % (1.7-9.3); MPV 11.1 FL (7.4-10.4); NEUT# 16.53 X1000 (1.4-6.5); NEUT% 91.2 % (42.2-75.2); PLT 533 X1000 (130-400); RBC 3.44 XMIL (4.7-6.1); RDW 12.9 % (11.5-14.5); WBC 18.11 X1000 (4.8-10.8)
[2019-11-19 06:31] LABS: AGAP 12; BUN 17 mg/dL (8-22); CALCIUM 8.5 mg/dL (8.8-10.2); CHLORIDE 101 mmol/L (98-107); COSMO 285; CREATININE 0.7 mg/dL (0.7-1.2); ESTIMATED GFR > 60; GLUCOSE 131 mg/dL (70-104); POTASSIUM 3.6 mmol/L (3.5-5.1); SODIUM 141 mmol/L (136-145); TCO2 28 mmol/L (25-35)
[2019-11-19] MEDS: SOLU-MEDROL IV SCH ×3 (08:48→22:09)
[2019-11-19] MEDS: ZITHROMAX PO SCH (08:48)
--- NOTE | 2019-11-19 11:50 | PROGRESS NOTE ---
DATE: 11/19/2019 SUBJECTIVE: The patient reports feeling better, now requiring 3 L of oxygen by nasal cannula, walking in the hallways without getting short of breath. OBJECTIVE: Vital Signs: Temperature 98.2 degrees, heart rate 88, respiratory rate 24, blood pressure 133/67, O2 saturation 93% 3 L nasal cannula. General: This is a 64-year-old, male, lying in bed in no acute distress. Cardiovascular: S1, S2 heard. No murmurs, gallops, or rubs. Regular rate and rhythm. Respiratory: Rhonchi and minimal wheezing noted in both pulmonary lopez, but the patient is not using any accessory muscles or having work of breathing. Abdomen: Soft, nontender to palpation. Bowel sounds present. No organomegaly. Extremities: No clubbing, cyanosis, or edema. Peripheral pulses present in both legs. Neurological: The patient is alert and oriented x3. Moves all 4 extremities. LABORATORY DATA: White cell count is 18. ASSESSMENT AND PLAN: 1. Acute hypoxemic respiratory failure secondary to eosinophilic pneumonia. Clinically, this patient continues to improve. He is requiring less oxygen supplementation, in this case at 3 liters of oxygen by nasal cannula. At this point, will continue with antibiotics, in this case cefepime and azithromycin. I think the patient is stable and can be moved to a regular floor. Will check with Pulmonary for how long this patient needs to stay in the hospital still. The patient is really willing to go home. Pulmonary, as mentioned before, is following this patient for recommendations. 2. Suspected COPD. Patient has history of long standing smoking and this pneumonia may have triggered this exacerbation. Will continue with Duoneb and IV steroids. 3. Disposition. Will move this patient to a regular room. Following leads from Pulmonary, will see for how long they are planning to keep this patient here in the hospital. cc: Imtiaz Taylor MD MTDD
[2019-11-19] MEDS: MAXIPIME 1 GM in NS 50 ML IV SCH ×2 (12:28→21:33)
[2019-11-19] MEDS: PROTONIX IV SCH (17:13)
[2019-11-20] MEDS: DUONEB (A & A) INH SCH ×3 (03:33→10:45)
[2019-11-20 04:59] LABS: ALLEN TEST YES; BE 2.5 mmoll (-3.0-3.0); BLOOD TYPE ARTERIAL; HCO3-(ACT) 26.7 mmoll (20.0-26.0); O2(CT) 15.8 mL/dL (15.0-23.0); PCO2(98.6) 48 mmHg (35-45); PO2(98.6) 59 mmHg (60-100); SAMPLE BLOOD; SAO2 92.7 % (95.0-100.0); THB 12.5 g/dL (11.5-17.4); pH(98.6) 7.38 (7.35-7.45)
[2019-11-20 05:00] LABS: MODALITY CANNULA; O2HB 89.7 % (95.0-99.0)
[2019-11-20 06:03] LABS: BASO# 0.01 X1000 (0.0-0.2); EOS# 0.22 X1000 (0.0-0.7); HEMATOCRIT 34.5 % (42.0-52.0); HEMOGLOBIN 10.7 g/dL (14.0-18.0); IMM GRAN# 0.17 X1000 (0.0-0.04); IMM GRAN% 0.8 % (0.0-0.5); LYMPH# 1.02 X1000 (1.2-3.4); LYMPH% 4.7 % (20.5-51.1); MCH 30.5 PG (27-31); MCV 98.3 FL (81-99); MONO# 0.96 X1000 (0.11-0.59); MONO% 4.4 % (1.7-9.3); MPV 10.9 FL (7.4-10.4); NEUT# 19.51 X1000 (1.4-6.5); NEUT% 89.1 % (42.2-75.2); PLT 552 X1000 (130-400); RBC 3.51 XMIL (4.7-6.1); RDW 13.2 % (11.5-14.5); WBC 21.89 X1000 (4.8-10.8)
[2019-11-20 06:25] LABS: AGAP 12; ALBUMIN 2.6 g/dL (3.5-5.0); BUN 15 mg/dL (8-22); CALCIUM 8.4 mg/dL (8.8-10.2); CHLORIDE 104 mmol/L (98-107); COSMO 288; CREATININE 0.6 mg/dL (0.7-1.2); ESTIMATED GFR > 60; GLUCOSE 171 mg/dL (70-104); PHOSPHORUS 3.3 mg/dL (2.7-4.5); POTASSIUM 3.7 mmol/L (3.5-5.1); SODIUM 142 mmol/L (136-145); TCO2 26 mmol/L (25-35)
[2019-11-20 06:48] LABS: LYMPHS 6 % (21-51); MONO 4 % (1-9); SEGS 90 % (42-75)
[2019-11-20] MEDS: ZITHROMAX PO SCH (08:22)
[2019-11-20] MEDS: MAXIPIME 1 GM in NS 50 ML IV SCH ×2 (08:23→11:54)
[2019-11-20 11:26] VITALS: BP 138/72
[2019-11-20] MEDS: SOLU-MEDROL IV SCH (12:22)
--- NOTE | 2019-11-20 13:19 | DISCHARGE SUMMARY ---
ADMISSION DATE: 11/13/2019 DISCHARGE DATE: 11/20/2019 ADMISSION DIAGNOSES: 1. Hypoxemia upon arrival, improved with oxygen. 2. Probable chronic interstitial lung disease with honeycombing and bilateral hilar and mediastinal adenopathy. 3. Probable superimposed infectious process of the lungs. 4. Emphysematous changes seen on CT scan. 5. Tobacco use and abuse with education of at least 3 to 6 minutes. DISCHARGE DIAGNOSES: 1. Acute hypoxemic respiratory failure secondary to eosinophilic and pneumonia. 2. Suspected chronic obstructive pulmonary disease. CONSULTATIONS: Dr. Jose Ignacio of Pulmonology. SURGERIES OR PROCEDURES: None. HOSPITAL COURSE: Mr. Dyllan Fung is a 64-year-old male who essentially had known past medical history came in to the emergency department with complaints of shortness of breath. Apparently earlier October, he had a pneumonia that was diagnosed. He felt that it had improved with the treatment. However, a couple of days after his treatment, the shortness of breath returned. He had appointment with his [facility] doctor. They gave him Zyrtec, Flonase. However, the shortness of breath continued and so he presented to the emergency department. His O2 saturations were at 85% on room air. CT of the chest showed emphysematous changes, chronic interstitial lung disease with honeycombing, bilateral hilar mediastinal adenopathy. Sarcoidosis was a consideration. Scattered patchy nodular opacities which could relate to sarcoidosis or other superimposed infectious processes. He had a white count of 17. He is having a productive cough of whitish green phlegm and he was transferred from [place] to [facility] for pulmonary consult. He was continued on supplemental O2, bronchodilators, pulmonary toilet, and broad-spectrum antibiotics. He was seen by Dr. Ignacio on the in the ICU. He initiated steroids, put him on prednisone home, added some atypical pathogen antibiotics. Educated him more on tobacco abuse and cessation and continued to follow along for his acute eosinophilic pneumonia. He improved during his stay, however, required oxygen for home. He was unable to get off of his oxygen and he will do that at home and also continue antibiotic therapy. DISCHARGE VITAL SIGNS: Temperature 97.6 degrees, heart rate 90, respiratory rate 20, blood pressure 136/83. O2 saturation 94% on 4 L. DISCHARGE LABORATORY DATA: White blood cells 21,000, hemoglobin 10, hematocrit 34, platelet count 552,000. ABGs pH 7.38, pCO2 48, PO2 59, bicarbonate 26, base excess 2.5, saturation 92%. Lactate 2.7. Sodium 142, potassium 3.7, BUN 15, creatinine 0.6, glucose 171, calcium 8.4, albumin is 2.6. IMAGING: On the he had a chest x-ray, bilateral infiltrates which are increased. Chest CT on the . Emphysematous changes probably chronic interstitial lung disease, possible sarcoidosis. Chest x-ray on the . No change from prior. Chest x-ray on the , no change from prior. Chest x-ray on the worsening pulmonary edema and/or pneumonia. Chest x-ray on the interval improvement. EKG on the , sinus tachycardia, rate 110. DISCHARGE MEDICATIONS: 1. Albuterol and Atrovent nebulizers every 4 hours p.r.n. 2. Levaquin 750 mg p.o. daily for 10 days. 3. Prednisone taper. PHYSICIAN FOLLOWUP: Dr. Jose Ignacio DISCHARGE ACTIVITY: As tolerated. DISCHARGE DIET: Regular. DISCHARGE INSTRUCTIONS: If your condition changes, contact physician and/or return to the emergency department. Changes may include, but not limited to shortness of breath, increased fatigue, excessive bleeding, unexplained weight loss or gain, unmanageable pain, signs or symptoms of infection. He will go home with home oxygen which will be delivered by the SD prior to patient being able to discharge. DISCHARGE DISPOSITION: Home. Dictated by JOE Aponte for Imtiaz Taylor MD Addendum: Patient seen and examined by myself. Agree with JOE note. It reflects my assessment and plan. Patient is being discharged in stable condition. Will be seen by Pulmonary in a week . cc: JOE Aponte MD [facility]
== END 2019-11-20 13:11 | disposition home or self-care (01) | DRG 196 ==
LOC: P.ED 13:55 → P.MEDSURG 17:39 → 1N 19:44 → ICU 11-17 12:39 → 2N 11-18 12:46
PROVIDERS: ATTEND Internal Medicine

== ENCOUNTER 2019-11-25 03:12 | Inpatient (IN) ==
[2019-11-25] MEDS ORDERED: SOLU-MEDROL IV ONE (03:40)
[2019-11-25 03:46] LABS: ALLEN TEST YES; BE 3.3 mmoll (-3.0-3.0); BLOOD TYPE ARTERIAL; HCO3-(ACT) 27.3 mmoll (20.0-26.0); METHB 0.9 % (0.0-1.5); PO2(98.6) 56 mmHg (60-100); SAMPLE BLOOD; SAO2 91.1 % (95.0-100.0); THB 12.2 g/dL (11.5-17.4); pH(98.6) 7.33 (7.35-7.45)
[2019-11-25 03:48] LABS: PCO2(98.6) 58 mmHg (35-45)
--- NOTE | 2019-11-25 03:48 | PROVIDER DOCUMENTATION ---
HPI-Respiratory General - General Chief Complaint: Shortness of Breath Stated Complaint: pna, sob Time Seen by Provider: 11/25/19 03:35 Source: patient Allergies/Adverse Reactions: Patient Allergies Allergy/AdvReac Type Severity Reaction Status Date / Time No Known Allergies Allergy Verified 11/25/19 04:57 Home Medications: Home Medication List Medication Instructions Recorded Confirmed Last Taken Type Albuterol 2.5MG/Ipratrop 0.5MG 3 ml INH Q4H PRN PRN #90 neb 11/20/19 11/25/19 Unknown Rx [Duoneb (A & A)] Levofloxacin [Levaquin] 750 mg PO DAILY #10 tab 11/20/19 11/25/19 Unknown Rx Prednisone 10 mg PO DIRECTED #50 tab 11/20/19 11/25/19 Unknown Rx - History of Present Illness-Resp Nature of Presenting Problem: Hx per paramedics and . pt able to speak in short sentences. Was d/c fron [facility] Nov 20, 2019 after pneumonia. no hx prior COPD or asthma or other lung or cardiaxc dz. Became much more SOB tonight /past 4-5 hr. increased sough . no c/o CP.no fever. Cntinues on levaquina nd prednisone daily as instructed.has home O2 at 3 liter/min but very long O2 tube. Review of Systems - Adult - REVIEW OF SYSTEMS - ADULT Constitutional: reports: no symptoms reported. denies: chills, fever Eyes: reports: no symptoms reported Ears, Nose, Mouth & Throat: reports: no symptoms reported Cardiovascular: reports: see HPI Respiratory: reports: see HPI Gastrointestinal: reports: no symptoms reported Genitourinary: reports: no symptoms reported Musculoskeletal: reports: no symptoms reported Integumentary: reports: no symptoms reported Neurological: reports: no symptoms reported Psychiatric: reports: no symptoms reported Endocrine: reports: no symptoms reported Hematologic/Lymphatic: reports: no symptoms reported Allergic/Immunologic: reports: no symptoms reported All Other Systems: Reviewed and Negative Past History - Adult - PAST MEDICAL HISTORY-ADULT Review of Records: reports: Nursing Assessment Review, Medications Reviewed, Social history reviewed & non-contributory. Major Childhood Illnesses: reports: denies history Cardiovascular: reports: HTN Respiratory: reports: denies history Gastrointestinal: reports: denies history Obstetrical/Gynecological: reports: denies history Genitourinary: reports: denies history Musculoskeletal: reports: denies history Neurological: reports: denies history Endocrine/Immune: reports: denies history Other Conditions: reports: denies history - PRIOR SURGERIES/PROCEDURES Surgical/Procedure History: reports: none - IMMUNIZATION STATUS Childhood Immunizations: See Nurse Assessment Flu Vaccine: See Nurse Assessment - FAMILY HISTORY Family History: reviewed, not pertinent Physical Exam-General - PHYSICAL EXAM-ADULT Initial Vital Signs Reviewed: Yes (tachycardia, tachynea) - CONSTITUTIONAL General Appearance: alert, moderate distress - EYES Eyes: PERRL/EOMI, pink conjunctivae - HEAD, EARS, NOSE, MOUTH & THROAT HENMT: normocephalic/atraumatic, moist mucous membranes - NECK Neck: non-tender, full range of motion, supple - RESPIRATORY Respiratory: chest non-tender, accessory muscle use, crackles, rales (moderate), increased rate (resp rate 42-45, moderate rales bilat. moderate increased work of breathing.) - CARDIOVASCULAR Cardiovascular: normal peripheral pulses, no edema, no JVD, no murmur, tachycardia - GASTROINTESTINAL (ABDOMEN) Abdominal Exam: normal bowel sounds, non tender, soft - MUSCULOSKELETAL Extremity: normal range of motion, non-tender, no pedal edema - SKIN Integumentary: normal color, normal turgor, warm/dry - NEUROLOGIC Neurologic: gift officer II-XII nml as tested, grossly normal, no motor/sensory deficits - PSYCHIATRIC Psych/Mental Status: normal mood/affect, oriented x 3 - HEART Score HEART Score: History: Slightly Suspicious HEART Score: ECG: Normal HEART Score: Age: 45-65 Years HEART Score: Risk Factors for Atherosclerotic Disease: No Risk Factors Known HEART Score: Troponin: 1-3x Normal Limit Total HEART Score:: 2 Progress - PLAN OF CARE/RESULTS Progress/Plan/Lab Results: Orders Category Date Time Status Admit [facility] Routine AdmDCTranf 11/25/19 07:12 Active Activity - Bedrest with BSC ORDERED Care 11/25/19 07:12 Active Cardiac Monitoring DIRECTED Care 11/25/19 03:19 Completed Cardiac Monitoring DIRECTED Care 11/25/19 03:32 Completed IV Insertion ORDERED Care 11/25/19 03:32 Completed Intake and Output-Strict ORDERED Care 11/25/19 07:12 Active Notify MD of + Sepsis Screen NOW Care 11/25/19 03:32 Completed Notify Physician As Ordered Care 11/25/19 03:32 Active Nursing- Assist w/ IS as order ORDERED Care 11/25/19 07:12 Active Nursing- MD Consult Request ROUTINE Care 11/25/19 07:12 Completed Saline Loc DIRECTED Care 11/25/19 07:12 Active Saline Loc NOW Care 11/25/19 03:19 Active Turn, Cough and Deep Breathe Q4HR.AWAKE Care 11/25/19 07:12 Active Vital Signs Order Q 4-HR ASSESS Care 11/25/19 07:12 Active Z-Document. for Tele Applied ORDERED Care 11/25/19 07:12 Completed Physician/Provider Consults Routine Cons 11/25/19 07:12 Ordered Regular Diet Diet 11/25/19 07:13 Completed CHEST-PORTABLE [RAD] Stat Exams 11/25/19 03:41 Completed ABG [RESP] Routine Lab 11/25/19 03:36 Completed ABG [RESP] Routine Lab 11/25/19 06:27 Completed BASIC METABOLIC PANEL [CHEM] Routine Lab 11/25/19 07:35 Completed BLOOD CULTURE [BLDCUL] Stat Lab 11/25/19 03:09 Results CBC WITH DIFF [HEME] Routine Lab 11/25/19 07:35 Completed CBC WITH ELECTRONIC DIFF [HEME] Stat Lab 11/25/19 03:32 Completed CK PROFILE [SP CHEM] Stat Lab 11/25/19 03:32 Completed COMPREHENSIVE METABOLIC PANEL [CHEM] Stat Lab 11/25/19 03:32 Completed INFLUENZA SCREEN A/B Stat Lab 11/25/19 07:29 Completed LACTATE, PLASMA [CHEM] Lab 11/25/19 05:33 Completed LACTATE, PLASMA [CHEM] Lab 11/25/19 07:35 Completed LACTATE, PLASMA [CHEM] Stat Lab 11/25/19 03:32 Completed MAGNESIUM [CHEM] Stat Lab 11/25/19 03:32 Completed PROTIME WITH INR [COAG] Stat Lab 11/25/19 03:32 Completed PTT [COAG] Stat Lab 11/25/19 03:32 Completed SPUTUM CULTURE WITH GRAM STAIN [RM] Routine Lab 11/25/19 03:49 Results TROPONIN T HIGH SENSITIVITY Q4H Lab 11/25/19 09:03 Completed TROPONIN T HIGH SENSITIVITY Q4H Lab 11/25/19 11:21 Completed TROPONIN T HIGH SENSITIVITY Q4H Lab 11/25/19 14:45 Completed TROPONIN T HIGH SENSITIVITY Stat Lab 11/25/19 03:32 Completed URINALYSIS W/POSS RFLX CULT [URINALYSIS] Stat Lab 11/25/19 04:10 Completed 0.9% Sodium Chloride Inj [Ns] 1,000 ml Med 11/25/19 07:12 Discontinued IV 75 mls/hr Acetaminophen [Tylenol] Med 11/25/19 07:12 Active 650 mg PO Q6H PRN PRN Albuterol 2.5MG/Ipratrop 0.5MG [Duoneb (A & A)] Med 11/25/19 07:12 Active 3 ml INH Q4H PRN PRN Enoxaparin [Lovenox] Med 11/25/19 07:12 Hold 40 mg SUBQ Q24H Levofloxacin [Levaquin] Med 11/25/19 09:00 Discontinued 750 mg PO DAILY Methylprednisolone Sod Succ [Solu-Medrol] Med 11/25/19 03:40 Discontinued 125 mg IV NOW ONE Ondansetron [Zofran] Med 11/25/19 07:12 Discontinued 4 mg IV Q4H PRN PRN Aerosol Treatments Routine Ot 11/25/19 07:12 Completed Aerosol Treatments Stat Oth 11/25/19 07:12 Completed BIPAP Stat Ot 11/25/19 03:50 Completed Incentive Spirometer Q4HR.AWAKE Ot 11/25/19 09:00 Completed Incentive Spirometer Q4HR.AWAKE Ot 11/25/19 13:00 Completed Incentive Spirometer Q4HR.AWAKE Ot 11/25/19 17:00 Completed Incentive Spirometer Q4HR.AWAKE Ot 11/25/19 21:00 Completed Incentive Spirometer Q4HR.AWAKE Ot 11/26/19 01:00 Completed Incentive Spirometer Q4HR.AWAKE Ot 11/26/19 05:00 Completed Oxygen Device Routine Oth 11/25/19 07:12 Completed Oxygen Device Stat Ot 11/25/19 03:32 Completed Telemetry [OM.EQ] Routine Oth 11/25/19 07:12 Active EKG [EKG] Stat Ther 11/25/19 03:19 Draft Transfer/Admit Order [TRANSFER] Routine Transfer 11/25/19 05:58 Completed Result Diagrams: 11/26/19 14:10 11/26/19 14:10 - REASSESSMENT Reassessment #1 Time Reassessed: 03:50 Status: unchanged (note inital ABGs, Add BIPAP while evaluate.) Reassessment #2 Time Reassessed: 04:41 Status: improving (p ox 98% and resp effort much less with the bipap established, repeating ABGs. Note leukocytosis and CXR basically unchanged from4 days ago. the new highly sensitive TROPONIN ELEVATED; yet EKG wihout ST changes.) - EKG 1 Time of EKG reading by physician:: 04:52 EKG Read and Signed by:: Blas Marks EKG Interpretation (*Must complete 3 of following elements*): Abnormal Rate: 108 Rhythm: NSR Jackson: normal QRS: RBB AR Interval: normal ST Wave: non-specific ST changes Comments: Sinus tachycardia, IRBBB - CONSULTS/PCP/HOSPITALIST Notification #1 *Consult/PCP/Hospitalist*: DR GUTIERREZ Time Discussed: 04:44 Consult Disposition: Admit Departure - Departure Date of Disposition Decision: 11/25/19 Time of Disposition Decision: 04:44 DIAGNOSIS: Interstitial lung disorders, COPD with hypoxia, Elevated troponin I measurement PNA (pneumonia) Qualifiers: Laterality: unspecified laterality Disposition: ADMITTED INPATIENT 09 Certified Medical Emergency: Emergent Condition: Stable - Critical Care Note This patient required my direct & personal management of CC.: Yes Total Time (mins): 30 Critical Care Statement: This patient required my direct personal management to treat or rule out processes, the absence of which, could potentiallly result in sudden, clinically significant life or limb threatening deterioration. Attestation - Physician/ MILLER Attestation The physician spent face to face time with patient:: Yes Advanced Practice Provider documentation review:: Supervising physician onsite and consulted in the evaluation and care of this patient. The physician did have a face to face encounter with the patient.
[2019-11-25 03:49] LABS: MODALITY NRB; O2HB 87.5 % (95.0-99.0)
[2019-11-25 03:56] LABS: BASO# 0.08 X1000 (0.0-0.2); BASO% 0.2 % (0.0-0.8); EOS# 2.67 X1000 (0.0-0.7); EOS% 7.9 % (0.0-10.0); HEMATOCRIT 37.7 % (42.0-52.0); HEMOGLOBIN 11.8 g/dL (14.0-18.0); IMM GRAN# 0.31 X1000 (0.0-0.04); IMM GRAN% 0.9 % (0.0-0.5); LYMPH# 1.74 X1000 (1.2-3.4); LYMPH% 5.2 % (20.5-51.1); MCH 29.9 PG (27-31); MCHC 31.3 g/dL (33-37); MCV 95.7 FL (81-99); MONO# 2.45 X1000 (0.11-0.59); MONO% 7.3 % (1.7-9.3); MPV 10.1 FL (7.4-10.4); NEUT% 78.5 % (42.2-75.2); PLT 494 X1000 (130-400); RBC 3.94 XMIL (4.7-6.1); RDW 13.2 % (11.5-14.5); WBC 33.75 X1000 (4.8-10.8)
[2019-11-25 04:00] LABS: INR 1.11; PROTIME 14.5 Seconds (11.0-16.0)
[2019-11-25 04:21] LABS: AGAP 12; ALBUMIN 2.8 g/dL (3.5-5.0); ALKALINE PHOSPHATASE 97 U/L (32-122); BUN 13 mg/dL (8-22); CALCIUM 8.2 mg/dL (8.8-10.2); CHLORIDE 103 mmol/L (98-107); CK PROFILE 56 U/L (24-204); COSMO 285; CREATININE 0.7 mg/dL (0.7-1.2); ESTIMATED GFR > 60; GLUCOSE 131 mg/dL (70-104); GOT 25 U/L (10-34); GPT 69 U/L (10-44); POTASSIUM 3.9 mmol/L (3.5-5.1); SODIUM 142 mmol/L (136-145); TCO2 27 mmol/L (25-35); TOTAL PROTEIN 5.5 g/dL (6.3-8.3)
[2019-11-25 04:41] LABS: PTT 28.5 Seconds (22.3-41.8)
[2019-11-25 05:03] LABS: URINE SOURCE CLEAN CATCH
[2019-11-25 05:24] LABS: BILIRUBIN URINE NEGATIVE (NEGATIVE); BLOOD URINE NEGATIVE (NEGATIVE); COLOR YELLOW; GLUCOSE URINE NEGATIVE (NEGATIVE); KETONE URINE NEGATIVE (NEGATIVE); LEUKOCYTES URINE NEGATIVE (NEGATIVE); NITRITE URINE NEGATIVE (NEGATIVE); PH URINE 5.5; PROTEIN URINE TRACE mg/dL (NEGATIVE); SP GRAVITY URINE 1.026; TURBIDITY URINE CLEAR (CLEAR); UROBILINOGEN URINE 2 mg/dL (NORMAL)
[2019-11-25 05:26] LABS: UR EPITHELIAL CELLS <10 /HPF (<10); URINE BACTERIA NEGATIVE /HPF; URINE RBC <10 /HPF (<10); URINE WBC <10 /HPF (<10)
[2019-11-25 05:31] LABS: BANDS 1 % (0-1); EOS 3 % (1-10); LYMPHS 7 % (21-51); MONO 4 % (1-9); SEGS 85 % (42-75)
[2019-11-25 06:36] LABS: ALLEN TEST YES; BE 4.3 mmoll (-3.0-3.0); BLOOD TYPE ARTERIAL; HCO3-(ACT) 28.3 mmoll (20.0-26.0); O2(CT) 16.2 mL/dL (15.0-23.0); O2HB 97.4 % (95.0-99.0); PO2(98.6) 209 mmHg (60-100); SAMPLE BLOOD; SAO2 100.6 % (95.0-100.0); THB 11.5 g/dL (11.5-17.4); pH(98.6) 7.37 (7.35-7.45)
[2019-11-25 06:39] LABS: MODALITY BI PAP; PCO2(98.6) 53 mmHg (35-45)
--- NOTE | 2019-11-25 06:48 | HISTORY AND PHYSICAL ---
CHIEF COMPLAINT: Shortness of breath. HISTORY OF PRESENT ILLNESS: 64-year-old -[place]ym[place] male who was recently discharged, I believe on November 20, around 5 days ago after having pneumonia. He was diagnosed with interstitial lung disease and emphysema. He was sent home with oxygen at 3 liters. He is taking Levaquin and prednisone as well as Albuterol. Today, he had a very bad coughing spell, could not catch his breath and had shortness of breath and came back to the emergency room. He was found to be hypoxic. Does have an elevated white cell count which is probably related to the prednisone that he was on at home; however, he is still being treated with Levaquin. He denied any chest pain, fevers, chills, just had complaint of the one coughing episode and felt as if he could not catch his breath. On arrival, he was tachypneic and tachycardic. Also had an elevated troponin likely related to demand ischemia. At any rate, he will be admitted for further evaluation and treatment. PAST MEDICAL HISTORY: 1. Interstitial lung disease. 2. Tobacco use and abuse. 3. Emphysema. PREVIOUS SURGICAL HISTORY: Denies. FAMILY HISTORY: Father had stomach cancer, at age 88. Denied any coronary artery disease or diabetes in the family. SOCIAL HISTORY: . He is a , he goes to the [employer]. He is a daily smoker for 20 or 30 years, 1+ pack a day. He quit drinking around 3 years ago. The stated that he did not smoke once he got back home. No illicit drugs. ALLERGIES: No known drug allergies. HOME MEDICATIONS: Just the Levaquin 750 p.o. daily, prednisone 10 mg taper and DuoNeb q.4 hours. REVIEW OF SYSTEMS: Fourteen point review of systems conducted with the patient. Pertinent positives listed above in the HPI. All other systems reviewed and found to be negative. PHYSICAL EXAMINATION: VITAL SIGNS: Temperature 99.2 degrees, pulse 108, respirations 24, blood pressure 115/68, oxygen saturation 99% on BiPAP. GENERAL: 64-year-old -[place]ym[place] male lying in the ER stretcher. He is on BiPAP. He is alert and oriented x3. He is in no acute distress. HEENT: Head is atraumatic, normocephalic. Pupils equal, round and reactive to light. Extraocular eye movements intact. Sclerae anicteric. Conjunctivae pale. Oral mucosa is moist. NECK: Supple. No JVD. No thyromegaly. Trachea is midline. No cervical lymphadenopathy. CARDIAC: S1, S2 appreciated. No murmurs, gallops, rubs. LUNGS: Coarse crackles noted throughout lung lopez. Expiratory wheeze. He is mild tachypneic. Symmetric rise and fall of respirations. ABDOMEN: Soft, nondistended, nontender. Bowel sounds present all 4 quadrants. Normoactive. No pulsatile mass. No organomegaly. EXTREMITIES: No cyanosis, clubbing or edema. 2+ pedal pulses. NEUROLOGICAL: Alert and oriented x3. No focal motor deficits. Otherwise nonfocal examination. DIAGNOSTIC DATA: Chest x-ray, stable COPD changes, interstitial lung disease. LABORATORY DATA: WBC 33.75, hemoglobin 11.8, hematocrit 37.7, platelet count 494,000. ABG, pH 7.33, CO2 58, PO2 56, bicarb 27.3. This was on 100% nonrebreather. Sodium 142, potassium 3.9, chloride 103, carbon dioxide 27, BUN 13, creatinine 0.7, glucose 131. High sensitivity troponin 29. Urine unremarkable. ASSESSMENT AND PLAN: 1. Hypoxic respiratory failure. 2. Mild respiratory acidosis. 3. Interstitial lung disease. 4. Emphysema. 5. Leukocytosis likely related to steroid treatment course. 6. Elevated troponin likely related to demand ischemia. PLAN: Patient to the medical floor. Continue BiPAP. Consult Dr. Ignacio. We will continue Levaquin for treatment of atypicals as well as continuing prednisone taper. Continue DuoNeb. Influenza screening is being completed, it has not resulted yet. Further recommendations per patient's clinical course. Dictated by JOE Kim for Eliud Short MD cc: JOE Kim MD Patient presenting with shortness of breath. CXR shows stable COPD changes, interstitial lung disease. I agree with the assessment and plan of the JOE. Dr. Short. [facility]
--- NOTE | 2019-11-25 07:01 | Diag Imaging Result Doc PS360 ---
EXAM: CHEST-PORTABLE 11/25/2019 HISTORY: SOB,COUGH TECHNIQUE: AP portable at 0347 COMMENT: There is increasing consolidation present particularly in the right upper lobe inferolaterally. The heart size remains within normal limits. The central pulmonary vascularity is somewhat obscured more so than on the previous study. IMPRESSION: Worsening pulmonary edema and/or pneumonia. Electronically signed by Ramon Corona 11/25/2019 6:58 AM
[2019-11-25] MEDS ORDERED: ZOFRAN IV PRN (07:12)
[2019-11-25] MEDS ORDERED: PREDNISONE PO SCH ×2 (07:12→10:00)
[2019-11-25] MEDS ORDERED: TYLENOL PO PRN (07:12)
--- NOTE | 2019-11-25 07:48 | EKG Report ---
Test Performed on : 11/25/2019 04:52:20 AM Test Reason : SOB Blood Pressure : / mmHG Vent. Rate : 108 BPM Atrial Rate : 108 BPM P-R Int : 132 ms QRS Dur : 108 ms QT Int : 342 ms P-R-T Axes : 062 067 068 degrees QTc Int : 458 ms Sinus tachycardia. Possible Left atrial enlargement Incomplete right bundle branch block Borderline ECG When compared with ECG of 13-NOV-2019 14:11, (Unconfirmed) No significant change was found Unconfirmed Result
[2019-11-25 08:27] LABS: AGAP 10; BASO# 0.04 X1000 (0.0-0.2); BASO% 0.1 % (0.0-0.8); BUN 12 mg/dL (8-22); CALCIUM 8.2 mg/dL (8.8-10.2); CHLORIDE 101 mmol/L (98-107); COSMO 279; CREATININE 0.7 mg/dL (0.7-1.2); EOS# 1.19 X1000 (0.0-0.7); EOS% 4.2 % (0.0-10.0); ESTIMATED GFR > 60; GLUCOSE 129 mg/dL (70-104); HEMATOCRIT 36.3 % (42.0-52.0); HEMOGLOBIN 11.3 g/dL (14.0-18.0); IMM GRAN# 0.17 X1000 (0.0-0.04); IMM GRAN% 0.6 % (0.0-0.5); LYMPH# 0.56 X1000 (1.2-3.4); MCHC 31.1 g/dL (33-37); MCV 96.3 FL (81-99); MONO# 0.57 X1000 (0.11-0.59); MPV 10.4 FL (7.4-10.4); NEUT# 25.72 X1000 (1.4-6.5); NEUT% 91.1 % (42.2-75.2); PLT 459 X1000 (130-400); POTASSIUM 4.4 mmol/L (3.5-5.1); RBC 3.77 XMIL (4.7-6.1); RDW 13.4 % (11.5-14.5); SODIUM 139 mmol/L (136-145); TCO2 28 mmol/L (25-35); WBC 28.25 X1000 (4.8-10.8)
[2019-11-25] MEDS ORDERED: LEVAQUIN PO SCH (09:00)
[2019-11-25 09:10] LABS: BANDS 10 % (0-1); EOS 2 % (1-10); HYPOCHROM 1+; LYMPHS 4 % (21-51); SEGS 84 % (42-75)
[2019-11-25] MEDS: LOVENOX SUBQ SCH (09:41)
[2019-11-25] MEDS ORDERED: PREDNISONE ONE (09:41)
[2019-11-25] MEDS: NS 1,000 ML IV SCH (09:42)
--- NOTE | 2019-11-25 13:04 | Diag Imaging Result Doc PS360 ---
EXAM: CT THORAX W/O CONTRAST 11/25/2019 HISTORY: persistent pneumonia TECHNIQUE: This exam was performed using automated exposure control, adjustment of mA or kV according to patient size, and/or use of iterative reconstruction technique. COMMENT: The current examination is compared with 11/13/2019. There are emphysematous changes. There are patchy ill-defined opacities as well as noncalcified nodular opacities bilaterally particularly in the lower lobes. There is dense consolidation of much of the lower lobes as well as increased interstitial markings. This is considerably worse than on 11/13/2019. The opacity which was demonstrated on the previous examination posteriorly in the right lower lobe, for example, which at that time measured 2.9 cm in AP dimension now measures over 7.2 cm. There is mediastinal adenopathy particularly in the right paratracheal and aorticopulmonary window and prevascular spaces. This does not appear to have changed significantly. There are calcified nodes in the right hilum there is apparent noncalcified adenopathy as well in the luis enrique particularly the left hilum. There are bilateral pleural effusions. There are multiple old rib fractures present IMPRESSION: Worsening alveolar consolidation, and pleural effusions. Interstitial edema versus fibrosis. Electronically signed by Ramon Corona 11/25/2019 1:02 PM
[2019-11-25] MEDS: DUONEB (A & A) INH PRN (15:17)
--- NOTE | 2019-11-25 20:21 | PULMONOLOGY CONSULTATION ---
DATE: 11/25/2019 HISTORY OF PRESENT ILLNESS: Mr. Fung is a 64-year-old black male who was evaluated by this practitioner on 11/13/2019 for bilateral infiltrates/pneumonia. The patient had a chest x-ray 10/08/2019 which revealed no significant infiltrates, but he was evaluated in the emergency room for a cough. By the time of admission, the patient had bilateral pulmonary infiltrates and had failed outpatient antibiotics. He also had significant eosinophilia. The patient was initiated on steroids for possible eosinophilic pneumonia or bronchiolitis obliterans, and chest x-ray prior to discharge revealed some radiographic improvement. The patient developed progressive shortness of breath along with decreasing oxygen saturation and was evaluated in the emergency room early this morning. Chest x-ray reveals progression of his bilateral infiltrates. The patient reports he has completely stopped smoking. He reports he did take steroids at the time of discharge. PAST MEDICAL HISTORY/PROBLEM LIST: Chronic medications prior to October admission: None. PREVIOUS SURGERIES: None. SOCIAL HISTORY: Patient previously served in the [employer]. He was smoking prior to the last admission, but has been a nonsmoker since that time. No significant alcohol use. FAMILY HISTORY: Positive for gastric cancer. REVIEW OF SYSTEMS: Notable for cough, sputum production, and shortness of breath. PHYSICAL EXAMINATION: General: Reveals a thin black male who can speak in full sentences. He is requiring a 50% Venturi mask to maintain oxygen saturation. He has been afebrile during this hospitalization. Vital Signs: Blood pressure 130/71, heart rate 95 respiratory rate 17, oxygen saturation 92%. HEENT: Pupils are equal and reactive. Oropharynx appears clear. Neck: Supple. Chest: Reveals crackles and rhonchi bilaterally. Cardiac: S1, S2. Abdomen: Soft. Extremities: Without edema. LABORATORIES: White blood count 28,000, hemoglobin 11.3, platelet count 459,000. Arterial blood gas: pH of 7.37, pCO2 of 53, PO2 of 209. IMPRESSION: 1. A 64-year-old with persistent/progressive pneumonia. 2. Hypoxemic respiratory failure. 3. Chronic obstructive pulmonary disease. 4. Failure to improve with steroids and antibiotic treatment. DISCUSSION: A 64-year-old with problems outlined above. The patient has had some progression of radiographic infiltrates despite initial improvement. At this juncture, it is recommended that bronchoscopy with washings/lavage and transbronchial biopsy be performed. The risks of the procedure were discussed with the patient, along with the benefits. He is aware that there is a risk of bleeding, infection, pneumothorax and progression of his respiratory failure requiring mechanical ventilation/intubation/life support. PLAN: 1. Continue current treatment. 2. Schedule for bronchoscopy first thing tomorrow morning. This is currently on the schedule for 7 a.m. cc: Jose Ignacio MD
[2019-11-26] MEDS: NS 1,000 ML IV SCH ×2 (04:56→10:11)
[2019-11-26] MEDS ORDERED: EPINEPHRINE ONE (06:41)
[2019-11-26] MEDS ORDERED: SODIUM CHLORIDE 0.9% 20 ML ONE (06:41)
[2019-11-26] MEDS ORDERED: XYLOCAINE 2% ONE (06:41)
[2019-11-26] MEDS ORDERED: XYLOCAINE 2% VISCOUS ONE (06:41)
[2019-11-26] MEDS ORDERED: DIPRIVAN 1% ONE (06:44)
[2019-11-26] MEDS ORDERED: XYLOCAINE-MPF 2% ONE (06:44)
[2019-11-26] MEDS ORDERED: FENTANYL ONE (06:45)
[2019-11-26] MEDS ORDERED: ZEMURON ONE (08:19)
[2019-11-26] MEDS ORDERED: VERSED ONE (08:19)
[2019-11-26] MEDS ORDERED: NEO-SYNEPHRINE ONE (08:26)
[2019-11-26] MEDS ORDERED: SODIUM CHLORIDE 0.9% 10 ML ONE (08:26)
--- NOTE | 2019-11-26 09:11 | Diag Imaging Result Doc PS360 ---
EXAM: CHEST-PORTABLE 11/26/2019 HISTORY: post bronch TECHNIQUE: AP portable at 0845 COMMENT: There is dense alveolar opacity present bilaterally particularly in the right upper lobe. This was also present on 11/25/2019 although the opacification of the upper lobes is apparently slightly worse. There is an endotracheal tube with its tip slightly below the thoracic inlet which was not present previously. IMPRESSION: Slightly worsened pulmonary edema versus pneumonia. Electronically signed by Ramon Corona 11/26/2019 9:08 AM
[2019-11-26] MEDS: DILAUDID ONE ×8 (09:20→10:46)
[2019-11-26] MEDS ORDERED: LR 0 ML ONE (09:23)
[2019-11-26] MEDS ORDERED: NS 1,000 ML ONE (09:24)
[2019-11-26] MEDS ORDERED: VANCOMYCIN IV PER PHARMACY MISC SCH (10:06)
[2019-11-26] MEDS ORDERED: D5 NS 1,000 ML ONE (10:28)
[2019-11-26] MEDS: DUONEB (A & A) INH SCH ×4 (11:07→22:31)
[2019-11-26] MEDS: DIPRIVAN 1% 1,000 MG/100 ML BOTTLE IV SCH ×4 (11:15→22:28)
[2019-11-26] MEDS ORDERED: BENADRYL IV ONE (11:20)
[2019-11-26] MEDS: D5 NS 1,000 ML IV SCH ×2 (11:40→23:13)
[2019-11-26] MEDS: PROTONIX IV SCH (11:40)
[2019-11-26] MEDS: SODIUM CHLORIDE 0.9% INJ SCH (11:41)
[2019-11-26] MEDS: SOLU-MEDROL IV SCH ×2 (11:41→18:22)
[2019-11-26] MEDS ORDERED: NS 250 ML ONE (11:44)
[2019-11-26] MEDS ORDERED: VANCOMYCIN 2,000 MG in NS 500 ML IV ONE (12:00)
[2019-11-26 12:17] LABS: URINE SOURCE CATH
[2019-11-26 12:27] LABS: BILIRUBIN URINE NEGATIVE (NEGATIVE); BLOOD URINE NEGATIVE (NEGATIVE); COLOR YELLOW; GLUCOSE URINE NEGATIVE (NEGATIVE); KETONE URINE NEGATIVE (NEGATIVE); LEUKOCYTES URINE NEGATIVE (NEGATIVE); NITRITE URINE NEGATIVE (NEGATIVE); PH URINE 5.5; PROTEIN URINE TRACE mg/dL (NEGATIVE); SP GRAVITY URINE 1.024; TURBIDITY URINE CLEAR (CLEAR); UROBILINOGEN URINE NORMAL (NORMAL)
[2019-11-26 12:29] LABS: UR EPITHELIAL CELLS <10 /HPF (<10); URINE BACTERIA NEGATIVE /HPF; URINE RBC <10 /HPF (<10); URINE WBC <10 /HPF (<10)
[2019-11-26] MEDS: MAXIPIME 1 GM in NS 50 ML IV SCH ×2 (12:55→23:13)
[2019-11-26 14:11] LABS: ALLEN TEST YES; BE 5.3 mmoll (-3.0-3.0); BLOOD TYPE ARTERIAL; METHB 1.1 % (0.0-1.5); O2(CT) 14.2 mL/dL (15.0-23.0); O2HB 92.5 % (95.0-99.0); PO2(98.6) 66 mmHg (60-100); SAMPLE BLOOD; SAO2 95.7 % (95.0-100.0); SRATE 22 BPM; THB 10.9 g/dL (11.5-17.4); TVOL 400 mL; pH(98.6) 7.34 (7.35-7.45)
[2019-11-26 14:13] LABS: MODALITY VENTILATOR
[2019-11-26 14:14] LABS: PCO2(98.6) 60 mmHg (35-45)
[2019-11-26 14:29] LABS: BASO# 0.03 X1000 (0.0-0.2); BASO% 0.1 % (0.0-0.8); EOS# 1.17 X1000 (0.0-0.7); EOS% 3.8 % (0.0-10.0); HEMATOCRIT 35.2 % (42.0-52.0); HEMOGLOBIN 10.6 g/dL (14.0-18.0); IMM GRAN% 0.7 % (0.0-0.5); LYMPH# 0.51 X1000 (1.2-3.4); LYMPH% 1.7 % (20.5-51.1); MCH 30.4 PG (27-31); MCHC 30.1 g/dL (33-37); MCV 100.9 FL (81-99); MONO# 1.21 X1000 (0.11-0.59); MPV 10.2 FL (7.4-10.4); NEUT# 27.49 X1000 (1.4-6.5); NEUT% 89.7 % (42.2-75.2); PLT 405 X1000 (130-400); RBC 3.49 XMIL (4.7-6.1); RDW 13.7 % (11.5-14.5); WBC 30.61 X1000 (4.8-10.8)
--- NOTE | 2019-11-26 14:30 | OPERATIVE NOTE ---
PROCEDURE DATE: 11/26/2019 PROCEDURE: Bronchoscopy with tracheal washing, endobronchial brushing, transbronchial biopsies, and bronchoalveolar lavage. CLINICAL INDICATIONS FOR PROCEDURE: A 64-year-old male with progressive pulmonary infiltrates/consolidation with progressive hypoxemia despite prior treatments. DESCRIPTION OF PROCEDURE: The patient was identified in the outpatient holding area. He did not have any questions prior to proceeding with the procedure. The patient was aware that given his illness, he may require intubation/mechanical ventilation/life support after the procedure. The patient was brought to the operating room where the procedure was performed. Initial plan was to perform the procedure through a LMA. A time-out was performed and all agreed with the procedure. The LMA was placed. Oxygen saturation with LMA placement was in the upper 80s. Bronchoscope was advanced through the LMA and the vocal cords were visualized. There was some edema to the larynx. The bronchoscope was advanced into the trachea. There was increase in clear secretions. The patient's oxygen saturation dropped with introduction of the bronchoscope. At this juncture, it was felt unsafe to proceed with bronchoscopy, and that he would require intubation with postop ventilation. The bronchoscope was retracted. The LMA was removed. The patient was intubated by the anesthesiologist and the ELECTRICAL WORKER with a #8 tube. The tube was adjusted in length to facilitate bronchoscopy. After the patient was successfully intubated and his oxygen saturation increased above 90%, bronchoscope was advanced through the endotracheal tube with the bronchoscope adapter in place. A visual inspection of the airways was performed. Airways to the right upper lobe, right middle lobe, and right lower lobe were mildly edematous, but no lesions identified. The entrance of the left upper lobe had a cobblestoning appearance, and was worrisome for a malignancy. Airways to the left lower lobe were patent without lesions. A brushing was performed from the entrance to the left upper lobe. I elected not to pursue biopsies at this time due to his marginal pulmonary status, and the need for more invasive interventions on the contralateral side. The bronchoscope was directed to the right upper lobe, and wedged into position in the anterior segment. A bronchoalveolar lavage was performed from this segment with good return. When the lavage was complete, transbronchial biopsies were performed from the anterior segment of the right upper lobe under fluoroscopy. Five biopsies were obtained. Minor bleeding occurred with biopsies, which resolved with instillation of epinephrine and with observation. The bronchoscope was directed to the right lower lobe when all bleeding had ceased from the right upper lobe. Five transbronchial biopsies were taken from the lateral segment of the right lower lobe. Again, there was transient bleeding which was corrected with epinephrine. The bronchoscope was directed to the anterior segment of the right lower lobe. Five additional biopsies were taken under fluoroscopy. Following the biopsies, one additional washing was performed. IMPRESSION: Status post successful bronchoscopy, tracheal washing, brushing of the entrance of the left upper lobe, transbronchial biopsies of the right upper lobe, transbronchial biopsies of the right lower lobe. Bronchoalveolar lavage and washings as per above. A postprocedure chest x- ray is pending. The patient will remain intubated, and sedated on mechanical ventilation for recovery. He will be transferred to the Intensive Care Unit. cc: Jose Ignacio MD
[2019-11-26 14:52] LABS: AGAP 6; ALBUMIN 2.3 g/dL (3.5-5.0); BUN 15 mg/dL (8-22); CALCIUM 8.4 mg/dL (8.8-10.2); CHLORIDE 105 mmol/L (98-107); COSMO 286; CREATININE 0.8 mg/dL (0.7-1.2); ESTIMATED GFR > 60; GLUCOSE 102 mg/dL (70-104); PHOSPHORUS 3.3 mg/dL (2.7-4.5); POTASSIUM 4.2 mmol/L (3.5-5.1); SODIUM 143 mmol/L (136-145); TCO2 32 mmol/L (25-35)
--- NOTE | 2019-11-26 14:54 | PROGRESS NOTE ---
DATE: 11/26/2019 SUBJECTIVE: The patient is sedated and intubated. He went for bronchoscopy this morning, and they decided to intubate him. OBJECTIVE: Vital Signs: Temperature 97.5 degrees, heart rate 112, respiratory rate 22, blood pressure 125/69, O2 saturation 100% on mechanical ventilator, FiO2 of 80%. General: This is a 64- year-old, male, lying in bed, intubated. Cardiovascular: S1, S2 heard. No murmurs, gallops, or rubs. Regular rate and rhythm. Respiratory: Coarse crackles noted in both pulmonary lopez with wheezing. The patient is not using any accessory muscles or having work of breathing. Abdomen: Soft, nontender to palpation, nondistended. Bowel sounds present. No organomegaly. Extremities: No clubbing, cyanosis, or edema. Peripheral pulses present in both legs. Neurological: The patient is sedated and intubated. LABORATORY DATA: There are no labs from today. Those are still pending at the time of my dictation. ASSESSMENT: 1. Acute hypoxemic respiratory failure. 2. Eosinophilic pneumonia. 3. Chronic obstructive pulmonary disease. PLAN: At this point, the patient has been intubated. We do not have the results of the bronchoscopy yet. The patient is also supposed to have a bronchoalveolar lavage. Will continue with the current antibiotics and also breathing treatments and intravenous steroids. Antibiotic- gibbons, he is on Levaquin and cefepime. He has been placed on Solu-Medrol 60 mg IV every 8 hours. Vancomycin has been also added to his current treatment. At this point, will continue to monitor this patient closely. cc: Imtiaz Taylor MD
[2019-11-26 15:42] LABS: BANDS 1 % (0-1); EOS 1 % (1-10); LYMPHS 1 % (21-51); MONO 3 % (1-9); SEGS 94 % (42-75)
[2019-11-26] MEDS ORDERED: LEVAQUIN 500 MG/D5W 500 MG/100 ML IVPB IV ONE (16:00)
[2019-11-27] MEDS: DIPRIVAN 1% 1,000 MG/100 ML BOTTLE IV SCH ×4 (02:15→12:31)
[2019-11-27] MEDS: SOLU-MEDROL IV SCH ×3 (02:16→17:37)
[2019-11-27] MEDS: DUONEB (A & A) INH SCH ×6 (03:56→23:38)
[2019-11-27 04:40] LABS: ALLEN TEST YES; BE 5.4 mmoll (-3.0-3.0); BLOOD TYPE ARTERIAL; HCO3-(ACT) 29.1 mmoll (20.0-26.0); METHB 0.9 % (0.0-1.5); O2(CT) 13.9 mL/dL (15.0-23.0); O2HB 94.6 % (95.0-99.0); PO2(98.6) 75 mmHg (60-100); SAMPLE BLOOD; SAO2 97.4 % (95.0-100.0); SRATE 22 BPM; THB 10.4 g/dL (11.5-17.4); TVOL 400 mL; pH(98.6) 7.37 (7.35-7.45)
[2019-11-27 04:42] LABS: MODALITY VENTILATOR; PCO2(98.6) 55 mmHg (35-45)
[2019-11-27 05:05] LABS: HEMOGLOBIN 9.2 g/dL (14.0-18.0); MCH 29.9 PG (27-31); MCHC 29.7 g/dL (33-37); MCV 100.6 FL (81-99); MPV 10.5 FL (7.4-10.4); RBC 3.08 XMIL (4.7-6.1); RDW 13.8 % (11.5-14.5); WBC 20.82 X1000 (4.8-10.8)
[2019-11-27 05:17] LABS: MAGNESIUM 2.4 mg/dL (1.5-2.7); PHOSPHORUS 4.1 mg/dL (2.7-4.5)
[2019-11-27] MEDS: VANCOMYCIN 1,700 MG in NS 250 ML IV SCH ×2 (05:46→23:22)
[2019-11-27] MEDS: LOVENOX SUBQ SCH (07:06)
--- NOTE | 2019-11-27 07:14 | Diag Imaging Result Doc PS360 ---
EXAM: CHEST-PORTABLE 11/27/2019 HISTORY: respiratory failure TECHNIQUE: AP portable at 0524 COMMENT: There is patchy alveolar opacity bilaterally. There is an endotracheal tube with its tip at thoracic inlet and a PICC line on the right with its tip in the superior vena cava. Compared to 11/26/2019 the opacity in the right upper lobe has improved slightly. IMPRESSION: Slightly improved pulmonary edema plus minus pneumonia. Electronically signed by Ramon Corona 11/27/2019 7:12 AM
[2019-11-27] MEDS: MAXIPIME 1 GM in NS 50 ML IV SCH ×2 (09:34→21:40)
[2019-11-27] MEDS: PROTONIX IV SCH (09:35)
[2019-11-27] MEDS ORDERED: ATIVAN IV PRN (13:21)
[2019-11-27] MEDS: D5 NS 1,000 ML IV SCH ×2 (14:50→20:37)
--- NOTE | 2019-11-27 15:28 | PROGRESS NOTE ---
DATE: 11/27/2019 SUBJECTIVE: The patient has no major complaints. He is intubated and sedated. According to the nurse, though, he is wide awake at times. OBJECTIVE: Blood pressure 94/53, heart rate 86, respiratory rate 23, temperature 98 degrees, O2 98% on 60%.Cardiovascular: Regular rate and rhythm. Pulmonary: Bilateral breath sounds clear to auscultation. GI: Soft, nontender, nondistended. Bowel sounds are positive. LABORATORY DATA: White count is 20, hemoglobin and hematocrit 9 and 31, platelets 342,000, pH 7.37, pCO2 55, PaO2 75. PROBLEM LIST: 1. Acute hypoxic respiratory failure. We will continue treatment and follow. He is weaning O2 pretty well. Seems to be doing okay. Pulmonary is obviously following. Bronchoscopy was yesterday. 2. Eosinophilic pneumonia. We will continue steroids and monitor. Follow up on bronchoscopy data. 3. Chronic obstructive pulmonary disease exacerbation. Will continue breathing treatments, steroids, and follow. He is on GI and DVT prophylaxis. He is also on empiric antibiotics, vancomycin, and cefepime per Dr. Ignacio pending culture results. 4. Disposition overall improving. We will continue to follow. Appreciate Pulmonary help. cc: Terrell Gary MD
--- NOTE | 2019-11-27 19:41 | PULMONOLOGY PROGRESS NOTE ---
DATE: 11/27/2019 SUBJECTIVE: The patient's sedation vacation is in progress. He is arousable. He will follow commands. OBJECTIVE: Vital Signs: The patient has been afebrile for the last 24 hours. Blood pressure 94/53, heart rate 86, respiratory rate 23, oxygen saturation 98% on 60% FiO2 HEENT: Pupils are equal and reactive. Oropharynx appears clear. Neck is supple. Chest reveals crackles bilaterally. Cardiac exam regular rate, normal S1, normal S2. Abdomen is soft. Extremities without edema. LABORATORIES: Microbiology reveals normal raquel from bronchoscopy. Transbronchial biopsies were discussed with Dr. Terri Mitchell and reveal poorly differentiated cancer with lymphatic invasion. Her initial thought it is it may represent a melanoma, but special stains will be sent and are pending. Chest x-ray reveals slight decrease in infiltrates compared to post bronchoscopy film. IMPRESSION: A 64-year-old with: 1. 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 2. Acute hypoxemic respiratory failure. 3. Chronic obstructive pulmonary disease. DISCUSSION: Unfortunate 64-year-old male who appears to have a cancer that is rapidly progressive with significant increase in tumor burden on CT scans which were 12 days apart. Cell type is not currently available as outlined above. PLAN: 1. Attempt to discontinue sedation and extubate today. If he cannot be extubated today than it is unlikely he will be extubated. 2. We will continue current antibiotic and steroid regimen for now. 3. Ask Oncology to evaluate given the rapid progression of his cancer. Critical care management: 45 minutes cc: Jose Ignacio MD MTDD
[2019-11-28] MEDS: SOLU-MEDROL IV SCH ×3 (01:31→17:57)
[2019-11-28] MEDS: DUONEB (A & A) INH SCH ×6 (03:04→23:31)
[2019-11-28 05:00] LABS: BE 6.3 mmoll (-3.0-3.0); BLOOD TYPE ARTERIAL; HCO3-(ACT) 29.8 mmoll (20.0-26.0); METHB 1.2 % (0.0-1.5); O2(CT) 13.7 mL/dL (15.0-23.0); O2HB 94.7 % (95.0-99.0); PO2(98.6) 79 mmHg (60-100); SAMPLE BLOOD; SAO2 97.7 % (95.0-100.0); THB 10.2 g/dL (11.5-17.4)
[2019-11-28 05:07] LABS: MODALITY BI PAP; PCO2(98.6) 52 mmHg (35-45)
[2019-11-28] MEDS: D5 NS 1,000 ML IV SCH ×2 (06:01→14:42)
[2019-11-28] MEDS: LOVENOX SUBQ SCH (06:12)
[2019-11-28 06:20] LABS: HEMATOCRIT 31.5 % (42.0-52.0); HEMOGLOBIN 9.6 g/dL (14.0-18.0); MCH 30.9 PG (27-31); MCHC 30.5 g/dL (33-37); MCV 101.3 FL (81-99); MPV 11.3 FL (7.4-10.4); RBC 3.11 XMIL (4.7-6.1); WBC 23.15 X1000 (4.8-10.8)
[2019-11-28 07:09] LABS: AGAP 15; BUN 17 mg/dL (8-22); CALCIUM 8.6 mg/dL (8.8-10.2); CHLORIDE 104 mmol/L (98-107); COSMO 281; CREATININE 0.6 mg/dL (0.7-1.2); ESTIMATED GFR > 60; GLUCOSE 99 mg/dL (70-104); SODIUM 140 mmol/L (136-145); TCO2 21 mmol/L (25-35)
--- NOTE | 2019-11-28 08:00 | Diag Imaging Result Doc PS360 ---
EXAM: CHEST-PORTABLE INDICATION: respiratory failure TECHNIQUE: One view COMPARISON: 11/27/2019 FINDINGS: There has been interval extubation. The right PICC line is in stable position. Extensive patchy airspace infiltrates seen throughout both lungs are unchanged. No new consolidation is identified. Cardiac silhouette is stable. IMPRESSION: Interval extubation. Stable chest, otherwise. Electronically signed by Favio Hoang 11/28/2019 7:58 AM
[2019-11-28] MEDS ORDERED: PREDNISONE PO SCH (09:00)
[2019-11-28] MEDS: PROTONIX IV SCH (09:42)
[2019-11-28] MEDS: SODIUM CHLORIDE 0.9% INJ SCH (09:42)
[2019-11-28] MEDS: MAXIPIME 1 GM in NS 50 ML IV SCH ×2 (09:42→21:31)
--- NOTE | 2019-11-28 11:24 | PROGRESS NOTE ---
DATE: 11/28/2019 SUBJECTIVE: Patient reports feeling very hungry. Mild shortness of breath while he resting. Continues to require oxygen by non-rebreather mask. No other issues noted as per nursing staff overnight. OBJECTIVE: Vital Signs: Temperature 99 degrees, heart rate 83, respiratory rate 22, blood pressure 117/66, O2 saturation 100% on non-rebreather mask. General Examination: This is a chronically ill appearing, 64-year-old male lying in bed, in no acute distress. Cardiovascular: S1, S2 heard. No murmurs, gallops, or rubs. Regular rate and rhythm. Respiratory: Crackles and rhonchi in both pulmonary lopez, mostly noted in both bases. Patient is not using any accessory muscles or having work of breathing. Abdomen: Soft. Nontender to palpation. Bowel sounds present. No organomegaly. Extremities: No clubbing, cyanosis, or edema. Peripheral pulses present in both legs. Neurological: Patient is alert and oriented x3. Moves 4 extremities. LABORATORY DATA: White cell count 23.15, hemoglobin 9.6, hematocrit 31.5, platelets 256,000. ABG that shows pH 7.40 with pCO2 of 52, PO2 79, that was taken on BiPAP at FiO2 100%. BMP is pretty much unremarkable with calcium 8.6. ASSESSMENT AND PLAN: 1. Acute hypoxemic respiratory failure. Patient has been successfully extubated yesterday, now requiring oxygen by non-rebreather mask. Upon my examination today, he is feeling stable. ABG from today shows good gas exchange with mild elevation of CO2 of 52. I think at this point, we will continue to monitor in the intensive care unit considering his still high oxygen needs. 2. Diffuse bilateral poorly differentiated cancer. Unfortunately that is result of the pathology. He has been under my care 2 weeks ago and we initially had Pulmonary work with diagnosis of eosinophilia pneumonia but now in light of these results of pathology, I think this cancer clinically is rapidly progressive. At this point, we will continue following recommendations from Pulmonary. We will continue to monitor. 3. Chronic obstructive pulmonary disease exacerbation. We will continue with breathing treatments, IV steroids and we will continue to monitor this patient closely. 4. Disposition. I think at this point, we will keep this patient 1 more day in the Intensive Care Unit for better monitoring. cc: Imtiaz Taylor MD
[2019-11-28] MEDS: VANCOMYCIN 1,700 MG in NS 250 ML IV SCH (16:38)
--- NOTE | 2019-11-28 22:04 | PULMONOLOGY PROGRESS NOTE ---
DATE: 11/28/2019 SUBJECTIVE: The patient is awake and alert. He is on a nonrebreather mask. He is currently eating breakfast. He denies dyspnea at rest. OBJECTIVE: Vital Signs: The patient has been afebrile for the last 24 hours. Blood pressure 123/67, heart rate 97, respiration rate 26, oxygen saturation 93%. HEENT: Pupils are equal and reactive. Oropharynx is clear. Neck: Supple. Chest: Reveals bilateral crackles. Cardiac: S1-S2. Abdomen: Soft. Extremities: Without edema. LABORATORIES: Chest x-ray reveals bilateral pulmonary infiltrates without change from yesterday. White blood count 23,000, hemoglobin 9.6, platelet count 256,000. Microbiology bronchoscopy reveals normal raquel. Arterial blood gas reveals pH 7.40, pCO2 of 52, PO2 of 79. IMPRESSION: 1. A 64-year-old with diffuse bilateral poorly differentiated cancer. 2. Hypoxemic respiratory failure. 3. Chronic obstructive pulmonary disease. PLAN: 1. Continue non-rebreather mask. 2. Diet as tolerated. 3. We will continue steroids and antibiotics with anticipation of weaning soon. 4. Await final pathology from the pathologist. 5. Oncology evaluation pending. cc: Jose Ignacio MD
[2019-11-28] MEDS ORDERED: MIRALAX PO ONE (22:42)
[2019-11-28] MEDS: COLACE PO SCH (23:17)
[2019-11-29] MEDS: SOLU-MEDROL IV SCH ×3 (02:08→17:47)
[2019-11-29] MEDS: DUONEB (A & A) INH SCH ×6 (03:31→23:08)
[2019-11-29 05:20] LABS: ALLEN TEST YES; BE 6.5 mmoll (-3.0-3.0); BLOOD TYPE ARTERIAL; METHB 0.9 % (0.0-1.5); PO2(98.6) 83 mmHg (60-100); SAMPLE BLOOD; SAO2 99.5 % (95.0-100.0); THB 7.3 g/dL (11.5-17.4); pH(98.6) 7.36 (7.35-7.45)
[2019-11-29 05:22] LABS: MODALITY BI PAP; PCO2(98.6) 58 mmHg (35-45)
[2019-11-29 05:47] LABS: HEMATOCRIT 32.8 % (42.0-52.0); HEMOGLOBIN 9.9 g/dL (14.0-18.0); MCH 30.2 PG (27-31); MCHC 30.2 g/dL (33-37); RBC 3.28 XMIL (4.7-6.1); RDW 13.7 % (11.5-14.5); WBC 27.93 X1000 (4.8-10.8)
[2019-11-29 06:07] LABS: AGAP 9; BUN 17 mg/dL (8-22); CALCIUM 8.3 mg/dL (8.8-10.2); CHLORIDE 106 mmol/L (98-107); COSMO 290; CREATININE 0.6 mg/dL (0.7-1.2); ESTIMATED GFR > 60; GLUCOSE 119 mg/dL (70-104); POTASSIUM 3.8 mmol/L (3.5-5.1); SODIUM 144 mmol/L (136-145); TCO2 29 mmol/L (25-35)
[2019-11-29] MEDS: LOVENOX SUBQ SCH (06:16)
[2019-11-29] MEDS: D5 NS 1,000 ML IV SCH (06:16)
--- NOTE | 2019-11-29 07:55 | Diag Imaging Result Doc PS360 ---
EXAM: CHEST-PORTABLE HISTORY: respiratory failure TECHNIQUE: Single view COMPARISON: 11/28/2019 FINDINGS: No change in the right-sided PICC line. There are dense bilateral infiltrates. These are more prominent than on the prior study. No cardiomegaly. There are small pleural effusions. IMPRESSION: Interval worsening Electronically signed by Tristan Mason 11/29/2019 7:52 AM
[2019-11-29] MEDS: COLACE PO SCH ×2 (08:14→20:38)
[2019-11-29] MEDS: MIRALAX PO SCH (08:14)
[2019-11-29] MEDS ORDERED: LASIX IV ONE (08:57)
[2019-11-29] MEDS: PROTONIX IV SCH (09:52)
[2019-11-29] MEDS: SODIUM CHLORIDE 0.9% INJ SCH (09:52)
[2019-11-29] MEDS: MAXIPIME 1 GM in NS 50 ML IV SCH ×2 (09:52→21:39)
--- NOTE | 2019-11-29 12:14 | PULMONOLOGY PROGRESS NOTE ---
DATE: 11/29/2019 SUBJECTIVE: The patient is awake and alert. He has a dry cough. He is without specific complaints. OBJECTIVE: Vital Signs: The patient has been afebrile for the last 24 hours. Blood pressure 137/81, oxygen saturation 95% on a nonrebreather. HEENT: Pupils are equal and reactive. Oropharynx is clear. Neck: Supple. Chest: Reveals crackles bilaterally. Cardiac Examination: S1-S2. Abdomen: Soft. Extremities: Without edema. Laboratories: Culture data reveals normal raquel from bronchoscopy. Pathology is pending. White blood count 27,000, hemoglobin 9.9, platelet count 358,000. Sodium 144, potassium 3.8, chloride 106, bicarbonate 29, BUN 17, creatinine 0.6. Arterial blood gas on BiPAP reveals a pH of 7.36, pCO2 of 58, pO2 of 83. IMPRESSION: A 64-year-old with: 1. Diffuse bilateral infiltrates with biopsies revealing poorly-differentiated cancer, final pathology pending. 2. Hypoxemic respiratory failure. 3. Chronic obstructive pulmonary disease. PLAN: 1. Discontinue IV fluids. The patient is tolerating diet without difficulty. 2. Continue nonrebreather mask. 3. Continue current steroids and antibiotics. 4. Await final pathology report. 5. Anticipate oncology evaluation tomorrow. cc: Jose Ignacio MD [facility]
[2019-11-29] MEDS: VANCOMYCIN 1,700 MG in NS 250 ML IV SCH ×2 (13:00→23:10)
--- NOTE | 2019-11-29 16:30 | PROGRESS NOTE ---
DATE: 11/29/2019 SUBJECTIVE: This morning Mr. Fung refers to be doing well. He was sitting up in the chair. He said he feels shortness of breath has significantly improved. OBJECTIVE: Vital signs: Blood pressure is 134/86, pulse of 88, respirations 26, temperature 99.1 degrees. Patient is saturating 95 to 93%. General: Mr. Fung is a 64-year-old gentleman. He is in bed no distress. HEENT: Mucosa is pink and moist. Anicteric. Acyanotic. Neck: Supple. The patient is on a non-rebreather. Chest: Air entry is bilaterally reduced. There is some faint both inspiratory and expiratory rhonchi. I did not hear any crackles. Cardiovascular: Regular rate and rhythm. Abdomen: Soft. Extremities: No pedal edema. 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 LABORATORY DATA: Has been reviewed. WBC is up to 27.93, hemoglobin is 9.9, platelet count of 358,000. Chemistry is also reviewed. So far, bronchoalveolar lavage Gram stain is showing gram-positive cocci. MEDICATIONS: Have all been reviewed. Patient is on cefepime and vancomycin. ASSESSMENT: 1. Acute hypoxemic respiratory failure. 2. Diffuse bilateral infiltrates with biopsy showing poorly differentiated cancer in the pulmonary report. We are still awaiting the official pathology report. 3. Chronic obstructive pulmonary disease in exacerbation. PLAN: In general, Mr. uFng seems to be doing clinically well. He is down to a nonrebreather. He was sitting up in a chair. He feels better. His pathology report is still pending. Apparently, the preliminary report seems to suggest poorly differentiated cancer per pulmonary note. We are going to be waiting on the official report and go from there. Patient is aware of the preliminary report. cc: Vance Calderon MD [facility]
[2019-11-30] MEDS: SOLU-MEDROL IV SCH ×3 (01:22→18:03)
[2019-11-30] MEDS: DUONEB (A & A) INH SCH ×6 (03:11→23:09)
[2019-11-30 06:03] LABS: AGAP 8; BUN 17 mg/dL (8-22); CALCIUM 8.3 mg/dL (8.8-10.2); CHLORIDE 101 mmol/L (98-107); COSMO 286; CREATININE 0.5 mg/dL (0.7-1.2); ESTIMATED GFR > 60; GLUCOSE 122 mg/dL (70-104); POTASSIUM 4.2 mmol/L (3.5-5.1); SODIUM 142 mmol/L (136-145); TCO2 33 mmol/L (25-35)
[2019-11-30] MEDS: LOVENOX SUBQ SCH (06:13)
--- NOTE | 2019-11-30 07:39 | Diag Imaging Result Doc PS360 ---
EXAM: CHEST-PORTABLE 11/30/2019 HISTORY: dyspnea TECHNIQUE: AP portable at 0648 COMMENT: There is dense alveolar opacity bilaterally. There has been some improvement particularly over the right lower lobe since 11/29/2019. There is a left pleural effusion. There is a PICC line on the right with its tip just above the right atrium. IMPRESSION: Improved pulmonary edema versus pneumonia. Electronically signed by Ramon Corona 11/30/2019 7:37 AM
[2019-11-30] MEDS: MIRALAX PO SCH (08:35)
[2019-11-30] MEDS: COLACE PO SCH ×2 (08:35→22:06)
[2019-11-30] MEDS: MAXIPIME 1 GM in NS 50 ML IV SCH ×2 (09:39→22:05)
[2019-11-30] MEDS: PROTONIX IV SCH (09:40)
[2019-11-30] MEDS: VANCOMYCIN 1,700 MG in NS 250 ML IV SCH ×2 (11:20→22:05)
[2019-11-30 11:56] LABS: ALLEN TEST YES
--- NOTE | 2019-11-30 14:22 | PULMONOLOGY PROGRESS NOTE ---
DATE: 11/30/2019 SUBJECTIVE: The patient is awake, alert, and conversant. He reports he has had a pretty good evening. He is tolerating p.o. intake. OBJECTIVE: Vital Signs: The patient has been afebrile for the last 24 hours. Blood pressure 109/79, heart rate 103, respiratory rate 25, oxygen saturation 92% on non-rebreather. HEENT: Pupils are equal and reactive. Oropharynx appears clear. Neck: Supple. Chest: Reveals crackles bilaterally. Cardiac exam: S1, S2. Abdomen: Is soft. Extremities: Reveal trace edema. LABORATORIES: Sodium 142, potassium 4.2, chloride 101, bicarbonate 33, BUN 17, creatinine 0.5. Chest x-ray 11/30/2019 reveals diffuse bilateral infiltrates. IMPRESSION: 1. A 64-year-old with diffuse bilateral poorly differentiated cancer affecting both lungs. 2. Hypoxemic respiratory failure. 3. Chronic obstructive pulmonary disease. PLAN: 1. Continue nonrebreather mask. 2. Will begin weaning antibiotics tomorrow. 3. Await final pathology report. 4. Await oncology evaluation. cc: Jose Ignacio MD
--- NOTE | 2019-11-30 15:02 | PROGRESS NOTE ---
DATE: 11/30/2019 SUBJECTIVE: This morning Mr. Fung refers to be doing well. He thinks his breathing is getting better. He still remains on a non-rebreather for adequate oxygenation. His was at the bedside at the time of the encounter. OBJECTIVE: Vitals: Blood pressure is 109/79, pulse of 73, respiration is 22, temperature 98.9 degrees. General: Mr. Fung is a 64-year-old gentleman he is in bed, does not seems to be in any cardiopulmonary distress. Mucosa is pink and moist. Anicteric, acyanotic. Neck: Supple. Chest: Air entry is bilaterally reduced. There is diffuse end expiratory and inspiratory rhonchi and some crackles. Cardiovascular: Regular rate and rhythm. No murmurs, no rubs, no gallops. Abdomen: Soft, nontender. Bowel sound is present. Extremities: No pedal edema. 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 No focal deficit. Patient is saturating 92% on 15 L of nonrebreather LABORATORY DATA: CBC not any today. Chemistry is completely normal. IMAGING STUDIES: A chest x-ray seems to suggest improved pulmonary edema versus pneumonia. Pathology is still pending the official report. CURRENT MEDICATIONS: 1. Tylenol 650 p.o. q.6 p.r.n. 2. DuoNeb. 3. Cefepime 1 g every 12 hours. 4. Colace 100 mg b.i.d. 5. Lovenox 40 mg subcu q.24. 6. Ativan 2 mg IV q.4 p.r.n. 7. Solu-Medrol 60 mg IV q.8. 8. Vancomycin per pharmacy protocol. 9. MiraLAX. ASSESSMENT: 1. Acute hypoxemic respiratory failure. Patient continues to be needing nonrebreather for adequate oxygenation, he is still going to be needing critical care management for now. Once his oxygen demands get a little less then I think he can potentially be transitioned to the floor. 2. Diffuse bacteria infiltrates, biopsy showing poorly differentiated cancer of the lungs. We still pending official pathology report. I spoke with Dr. Mitchell today and he thinks that we might be able to get some of the stains tomorrow. 3. Chronic obstructive pulmonary disease in exacerbation, patient is on antimicrobial therapy. 4. Superimposed multifocal bacterial pneumonia. Patient is on antimicrobial therapy. In general I think Mr. Fung is fairly stable, but obviously critical. Chest x-ray this morning seems to show some mild improvement. Mr. Fung got admitted on 11/25/2019 after he was discharged on 11/20/2019, he presented because of worsening of his respiratory symptoms. It was initially thought that he had eosinophilic pneumonitis however after no improvement and a bronchoscopy was eventually done by Dr. Ignacio on 11/26/2019. His bronchoscopy bacteriology have all been unremarkable however the cytology and the pathology is showing a poorly differentiated cancer of the lungs. We are still pending the stains to determine the histology. Oncology has already been consulted. We are pending their final recommendations. Patient disposition is going to depend on the rest of his hospital course. Mr. Fung is being seen by Pulmonary Medicine and Heme-Onc and we appreciate their input in the care of this complicated patient. cc: Vance Calderon MD
--- NOTE | 2019-11-30 17:47 | Diag Imaging Result Doc PS360 ---
CT ABD/PELVIS W/PO AND IV CON - 11/30/2019 INDICATION: R/O mets disease COMPARISON: Chest CT 11/25/2019 FINDINGS: There are bilateral low-density adrenal nodules. On the right side this measures 3 cm. On the left side this measures about 2 cm. The liver, pancreas, and spleen are normal. There are a couple tiny subcentimeter cyst of the left kidney. The right kidney appears normal. There is severe diffuse constipation. There is trace pelvic free fluid. No bowel obstruction. No free air. Urinary bladder, prostate, and rectum are normal. There is little change in the dense opacifications of the lung bases. There are moderate degenerative changes of the spine. No acute or suspicious bony lesion. There is severe body wall edema. IMPRESSION: 1. Indeterminate bilateral adrenal gland nodules. 2. Severe constipation. 3. Severe body wall edema. Trace pelvic free fluid. This exam was performed using automated exposure control, adjustment of mA or kV according to patient size, and/or use of iterative reconstruction technique Electronically signed by David Gay 11/30/2019 5:45 PM
[2019-12-01] MEDS: SOLU-MEDROL IV SCH ×3 (01:36→18:36)
[2019-12-01] MEDS: DUONEB (A & A) INH SCH ×6 (03:18→23:19)
[2019-12-01 05:42] LABS: BASO# 0.01 X1000 (0.0-0.2); EOS# 0.36 X1000 (0.0-0.7); EOS% 1.3 % (0.0-10.0); HEMATOCRIT 32.7 % (42.0-52.0); HEMOGLOBIN 9.8 g/dL (14.0-18.0); IMM GRAN# 0.08 X1000 (0.0-0.04); IMM GRAN% 0.3 % (0.0-0.5); LYMPH# 0.58 X1000 (1.2-3.4); LYMPH% 2.2 % (20.5-51.1); MONO# 0.71 X1000 (0.11-0.59); MONO% 2.7 % (1.7-9.3); MPV 11.1 FL (7.4-10.4); NEUT# 25.01 X1000 (1.4-6.5); NEUT% 93.5 % (42.2-75.2); PLT 347 X1000 (130-400); RBC 3.27 XMIL (4.7-6.1); RDW 13.7 % (11.5-14.5); WBC 26.75 X1000 (4.8-10.8)
[2019-12-01 05:58] LABS: AGAP 9; ALB/GLOB RATIO 0.8; ALBUMIN 2.3 g/dL (3.5-5.0); ALKALINE PHOSPHATASE 75 U/L (32-122); BUN 16 mg/dL (8-22); CALCIUM 8.5 mg/dL (8.8-10.2); CHLORIDE 102 mmol/L (98-107); COSMO 287; CREATININE 0.5 mg/dL (0.7-1.2); ESTIMATED GFR > 60; GLUCOSE 105 mg/dL (70-104); GOT 35 U/L (10-34); GPT 85 U/L (10-44); POTASSIUM 4.3 mmol/L (3.5-5.1); SODIUM 143 mmol/L (136-145); TCO2 32 mmol/L (25-35); TOTAL BILIRUBIN 0.27 mg/dL (0.20-1.00); TOTAL PROTEIN 5.2 g/dL (6.3-8.3)
[2019-12-01] MEDS: LOVENOX SUBQ SCH (06:25)
[2019-12-01] MEDS: COLACE PO SCH ×2 (08:24→20:02)
[2019-12-01] MEDS: MIRALAX PO SCH (08:25)
--- NOTE | 2019-12-01 09:53 | PROGRESS NOTE ---
DATE: 12/01/2019 SUBJECTIVE: Patient reports breathing better. Currently he is requiring a non-rebreather mask. He is in a good mood and eating very well. OBJECTIVE: Vital Signs: Temperature 98.9 degrees, heart rate 66, respiratory rate 18, blood pressure 141/68. O2 saturation 95% on nonrebreather mask at 15 L/minute. General: This is a 64-year-old male, lying in bed, in no acute distress. Cardiovascular: S1, S2 heard. No murmurs, gallops, or rubs. Regular rate and rhythm. Respiratory: Diffuse expiratory and inspiratory rhonchi and crackles noted in both pulmonary lopez, mostly noted in both bases. Patient not using any accessory muscles or having work of breathing. Abdomen: Soft, nontender to palpation. Bowel sounds present. No organomegaly. Extremities: No clubbing, cyanosis or edema. Peripheral pulses present in both legs. Neurological: Patient is alert and oriented x3. Moves 4 extremities. LABORATORY DATA: Reviewed. IMAGING: CT of the abdomen and pelvis showing severe body wall edema with trace pelvic free fluid and severe constipation and indeterminate bilateral adrenal gland nodules. ASSESSMENT AND PLAN: 1. Acute hypoxemic respiratory failure. Patient continues to require non-rebreather mask. Continues to require to be in the intensive care unit for now. We will continue to work on wean off oxygen today. 2. Cancer of the lungs. We are still waiting for final pathology report. Oncology has been consulted. They have ordered bone nuclear test and abdominal CT. 3. Chronic obstructive pulmonary disease exacerbation. We will continue with current antibiotics. In this case, vancomycin and cefepime, day #6 for both medications. 4. Abdominal wall edema is severe according to the CT of the abdomen. We will start Lasix 40 mg IV q.12 hours. We will continue to monitor. 5. Superimposed multifocal bacterial pneumonia. We will continue with current antibiotic management, in this case vancomycin and cefepime. 6. Disposition. At this point, we are awaiting pathology to see what Oncology is planning to do. cc: Imtiaz Taylor MD
[2019-12-01] MEDS: LASIX IV SCH ×2 (10:00→19:59)
[2019-12-01] MEDS: SODIUM CHLORIDE 0.9% INJ SCH (11:00)
[2019-12-01] MEDS: PROTONIX IV SCH (11:00)
[2019-12-01] MEDS: MAXIPIME 1 GM in NS 50 ML IV SCH (11:18)
[2019-12-01] MEDS: VANCOMYCIN 1,700 MG in NS 250 ML IV SCH (12:00)
--- NOTE | 2019-12-01 14:34 | Diag Imaging Result Doc PS360 ---
EXAM: BONE SCAN, TOTAL BODY 11/30/2019 HISTORY: R/O mets TECHNIQUE: Bone scan, 28.8 mCi of technetium 99m MDP with whole body scanning the anterior and posterior projection. COMMENT: There is some increased activity in the right patella and both tibial tuberosities. There is some increased activity in the first costosternal joint bilaterally. There is no evidence of focal abnormal radiotracer accumulation otherwise. IMPRESSION: Mild degenerative changes. No evidence of osseous metastatic disease. Electronically signed by Ramon Corona 12/01/2019 2:31 PM
--- NOTE | 2019-12-01 22:34 | PULMONOLOGY PROGRESS NOTE ---
DATE: 12/01/2019 SUBJECTIVE: The patient is awake and alert. He remains on a non-rebreather. He appears comfortable.HEENT: Pupils are equal and reactive. Oropharynx appears clear. Neck: Supple. Chest: Reveals crackles bilaterally. Cardiac: S1, S2. Abdomen: Soft. Extremities: Without edema. LABORATORY DATA: Lung biopsies are consistent with moderate to poorly differentiated adenocarcinoma consistent with a pulmonary primary. IMPRESSION: Multifocal bilateral lung cancer with acute on chronic hypoxemic respiratory failure. PLAN: 1. Continue oxygen for hypoxemic respiratory failure. 2. Await Oncology's decision to treat or not treat with chemotherapy. 3. We will discontinue antibiotics. cc: Jose Ignacio MD
[2019-12-02] MEDS: SOLU-MEDROL IV SCH ×4 (01:02→17:32)
[2019-12-02] MEDS: DUONEB (A & A) INH SCH ×6 (03:29→23:36)
[2019-12-02] MEDS: LOVENOX SUBQ SCH (06:21)
[2019-12-02 06:47] LABS: BASO# 0.01 X1000 (0.0-0.2); EOS# 0.12 X1000 (0.0-0.7); EOS% 0.5 % (0.0-10.0); HEMATOCRIT 33.3 % (42.0-52.0); HEMOGLOBIN 9.9 g/dL (14.0-18.0); IMM GRAN% 0.4 % (0.0-0.5); LYMPH# 0.54 X1000 (1.2-3.4); LYMPH% 2.1 % (20.5-51.1); MCH 29.9 PG (27-31); MCHC 29.7 g/dL (33-37); MCV 100.6 FL (81-99); MONO# 0.49 X1000 (0.11-0.59); MONO% 1.9 % (1.7-9.3); NEUT# 23.88 X1000 (1.4-6.5); NEUT% 95.1 % (42.2-75.2); PLT 336 X1000 (130-400); RBC 3.31 XMIL (4.7-6.1); RDW 13.8 % (11.5-14.5); WBC 25.14 X1000 (4.8-10.8)
[2019-12-02 06:56] LABS: AGAP 9; BUN 20 mg/dL (8-22); CALCIUM 8.3 mg/dL (8.8-10.2); CHLORIDE 97 mmol/L (98-107); COSMO 285; CREATININE 0.6 mg/dL (0.7-1.2); ESTIMATED GFR > 60; GLUCOSE 115 mg/dL (70-104); POTASSIUM 4.2 mmol/L (3.5-5.1); SODIUM 141 mmol/L (136-145); TCO2 35 mmol/L (25-35)
[2019-12-02 07:23] LABS: LYMPHS 3 % (21-51); MONO 3 % (1-9); SEGS 94 % (42-75)
[2019-12-02] MEDS: COLACE PO SCH ×2 (08:46→21:44)
[2019-12-02] MEDS: MIRALAX PO SCH (08:47)
--- NOTE | 2019-12-02 09:31 | PROGRESS NOTE ---
DATE: 12/02/2019 SUBJECTIVE: Patient reports feeling fine. His continues to requires non-rebreather mask. He is eating well. OBJECTIVE: Vital Signs: Temperature 98.6 degrees, heart rate 61, respiratory 15, blood pressure 115/60, O2 saturation 95% on non-rebreather mask. General Examination: This is a 65-year-old male, lying in bed, in no acute distress. Cardiovascular: S1, S2 heard. No murmurs, gallops, or rubs. Regular rate and rhythm. Respiratory: Diffuse expiratory and inspiratory rhonchi. Some crackles noted in both pulmonary lopez, mostly noted in both bases. Patient not using any accessory muscles or having work of breathing. Abdomen: Soft, nontender to palpation. Bowel sounds present. No organomegaly. Extremities: No clubbing, cyanosis, or edema. Peripheral pulses present in both legs. Neurological: Patient alert and oriented x3. Moves 4 extremities. LABORATORY DATA: Reviewed. 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 ASSESSMENT AND PLAN: 1. Acute hypoxemic respiratory failure. The patient is requiring non-rebreather mask. We will try to wean off of oxygen today. I think he feels much better so we will transfer this patient to our PVC unit. We will continue to monitor this patient closely there. 2. Poorly differentiated adenocarcinoma of the lungs. There is a final pathology report. Oncology has been consulted. We will wait for their input. So far bone scan and abdominal CT which were ordered for staging returned normal. 3. Chronic obstructive pulmonary disease exacerbation. We will continue with IV steroids and breathing treatment. Antibiotics have been stopped. 4. Abdominal wall edema. Lasix has been started yesterday. We will continue to monitor. 5. Disposition. Awaiting oncology recommendation. cc: Imtiaz Taylor MD
[2019-12-02] MEDS: SODIUM CHLORIDE 0.9% INJ SCH (09:40)
[2019-12-02] MEDS: LASIX IV SCH ×2 (09:40→21:44)
[2019-12-02] MEDS: PROTONIX IV SCH (09:40)
--- NOTE | 2019-12-02 21:40 | HEMO/ONC CONSULTATION ---
DATE: 11/30/2019 ADMITTING PHYSICIAN: Eliud Short MD REQUESTING PHYSICIAN: Eliud Short MD. We appreciate this consult. CHIEF COMPLAINT: Right lower lobe mass. HISTORY OF PRESENT ILLNESS: Mr. Fung is a pleasant 64-year-old male with a history of interstitial lung disease, tobacco abuse and emphysema. The patient was recently discharged from [facility], status post pneumonia. At that time he was diagnosed with interstitial lung disease and emphysema. The patient was sent home on oxygen 3 L, and was prescribed Levaquin and albuterol. The patient reports that he began to have a very bad coughing spell, could not catch his breath, and presented to the emergency department again. The patient underwent CT of the chest which revealed an opacity in the right lower lobe measuring 7.2 cm, which was significantly increased in size from prior CT chest. Additionally, mediastinal adenopathy was seen. The patient was admitted for hypoxemic respiratory failure, with plans for evaluation of mass. The patient underwent bronchoscopy with pathology that is currently pending. We are consulted for likely lung cancer. PAST MEDICAL HISTORY: As in HPI. PAST SURGICAL HISTORY: None. SOCIAL HISTORY: The patient smokes 1 pack cigarettes daily x20-30 years. The patient reports that he quit drinking alcohol 3 years ago. The patient does not use illicit drugs. FAMILY HISTORY: Significant for stomach cancer in the patient's father. MEDICATIONS: On admission: 1. Levaquin 750 mg daily. 2. Prednisone 10 mg taper. 3. DuoNeb. ALLERGIES: The patient has no known drug allergies. REVIEW OF SYSTEMS: A 14-point review of systems was obtained and is negative except as mentioned in HPI. PHYSICAL EXAMINATION: Mr. Fung is a very pleasant 64-year-old male lying supine in bed in no immediate distress. Vital signs: Temperature 98.5 degrees, blood pressure 111/69, heart rate 60, respirations 15, O2 saturation is 98% on BiPAP.HEENT: Normocephalic, atraumatic. Mucous membranes slightly pale and moist. Sclerae anicteric. Extraocular movements intact. Neck is supple. Lungs with coarse breath sounds, especially in the left lower lobe. CV: S1, S2 heard. No murmurs, rubs or gallops. Abdomen nondistended, nontender. Bowel sounds positive, all quadrants. No rebound or guarding noted. Extremities without clubbing, cyanosis or edema. Dermatologic: No rashes, bruises or lesions. Neurologic: The patient is awake, alert and oriented x3. He has no focal deficit. LABORATORY DATA: Hemoglobin 9.9, hematocrit 32.8, white blood cell count is 27.93, platelet count 358,000. Sodium 142, potassium 4.2, chloride 101, CO2 is 33, BUN 17, creatinine 0.5 and glucose is 122, calcium is 8.3. DIAGNOSTIC DATA: Chest x-ray reveals improved pulmonary edema with pneumonia. ASSESSMENT AND PLAN: 1. Right lower lobe mass measuring 7.2 cm with mediastinal adenopathy, status post bronchoscopy with pathology that is currently pending. We will check a bone scan and add a CT of the abdomen and pelvis to rule out metastases. Treatment plan will follow results of pathology. 2. Acute hypoxemic respiratory failure with chronic obstructive pulmonary disease exacerbation. Pulmonology is currently following. 3. We will follow along with you and make further recommendations pending outcomes. The above reflects the history, exam, assessment and plan of Dr. Ordaz. Dictated by JOE Kelly for Jesse Ordaz MD cc: JOE Kelly MD
[2019-12-03] MEDS: SOLU-MEDROL IV SCH ×3 (01:08→19:09)
[2019-12-03] MEDS: DUONEB (A & A) INH SCH ×6 (03:27→23:40)
[2019-12-03] MEDS: LOVENOX SUBQ SCH (05:46)
--- NOTE | 2019-12-03 06:52 | PULMONOLOGY PROGRESS NOTE ---
DATE: 12/03/2019 SUBJECTIVE: The patient is awake and alert. He has a good appetite. He remains on nonrebreather mask. OBJECTIVE: Vital Signs: Blood pressure 134/68, heart rate 83, respiratory rate 18, and oxygen saturation 96%. HEENT: Pupils are equal and reactive. Oropharynx is clear. Neck: Supple. Lungs: Chest reveals crackles bilaterally. Cardiac: S1-S2. Abdomen: Soft and without hepatosplenomegaly. Extremities: Reveal trace edema. LABORATORIES: White blood count 02731, hemoglobin 9.9, and platelet count 336,000. Sodium 141, potassium 4.2, chloride 97, bicarbonate 20, and creatinine 0.6. IMPRESSION: A 64-year-old with 1. Bilateral multifocal lung cancer with lymphangitic spread. 2. Hypoxemic respiratory failure with ongoing high oxygen requirements. DISCUSSION: A 64-year-old with multiple bilateral infiltrates consistent with diffuse bilateral lung involvement. The patient has no evidence of pneumonia. His hypoxemia is related to the lung cancer. He is not improving, and required a significant amount of oxygen even at the time of previous discharge. It is probable that he will not be able to be discharged due to high oxygen requirements. Oncology will have to decide if he is a candidate for chemotherapy, which will likely have to be initiated in the hospital if he is to be treated. RECOMMENDATIONS: 1. Follow up chest x-ray tomorrow. 2. Await Oncology's decision to treat or not treat this patient with diffuse bilateral lung involvement. High oxygen requirements. cc: Jose Ignacio MD
--- NOTE | 2019-12-03 06:53 | Diag Imaging Result Doc PS360 ---
CHEST-PORTABLE - 12/03/2019 INDICATION: abnormal exam COMPARISON: 11/30/2019 FINDINGS: Stable right PICC line in good position. Stable dense, heterogeneous bilateral infiltrates diffusely. Heart size is normal. No large pleural effusion. IMPRESSION: No change from prior. Electronically signed by David Gay 12/03/2019 6:51 AM
[2019-12-03 07:16] LABS: BASO# 0.01 X1000 (0.0-0.2); EOS# 0.06 X1000 (0.0-0.7); EOS% 0.2 % (0.0-10.0); HEMATOCRIT 33.7 % (42.0-52.0); HEMOGLOBIN 10.1 g/dL (14.0-18.0); IMM GRAN# 0.09 X1000 (0.0-0.04); IMM GRAN% 0.4 % (0.0-0.5); LYMPH# 0.58 X1000 (1.2-3.4); LYMPH% 2.3 % (20.5-51.1); MCH 30.3 PG (27-31); MCV 101.2 FL (81-99); MONO# 0.67 X1000 (0.11-0.59); MONO% 2.7 % (1.7-9.3); MPV 10.9 FL (7.4-10.4); NEUT# 23.42 X1000 (1.4-6.5); NEUT% 94.4 % (42.2-75.2); PLT 324 X1000 (130-400); RBC 3.33 XMIL (4.7-6.1); RDW 13.9 % (11.5-14.5); WBC 24.83 X1000 (4.8-10.8)
[2019-12-03 07:40] LABS: AGAP 9; BUN 19 mg/dL (8-22); CALCIUM 8.5 mg/dL (8.8-10.2); CHLORIDE 100 mmol/L (98-107); COSMO 291; CREATININE 0.6 mg/dL (0.7-1.2); ESTIMATED GFR > 60; GLUCOSE 125 mg/dL (70-104); POTASSIUM 4.2 mmol/L (3.5-5.1); SODIUM 144 mmol/L (136-145); TCO2 35 mmol/L (25-35)
[2019-12-03] MEDS: PROTONIX IV SCH (09:24)
[2019-12-03] MEDS: SODIUM CHLORIDE 0.9% INJ SCH (09:24)
[2019-12-03] MEDS: LASIX IV SCH ×2 (09:24→21:55)
[2019-12-03] MEDS: COLACE PO SCH ×2 (09:25→21:55)
[2019-12-03] MEDS: MIRALAX PO SCH (09:25)
--- NOTE | 2019-12-03 10:28 | PROGRESS NOTE ---
DATE: 12/03/2019 SUBJECTIVE: The patient reports feeling fine. Not short of breath while he is using his mask. A good appetite. No other complaints noted. OBJECTIVE: Vital Signs: Temperature 97.9 degrees, heart rate 87, respiratory rate 17, blood pressure 119/60, and O2 saturation 99% on nonrebreather mask. General: This is a 64-year-old male, lying in bed, in no acute distress. Cardiovascular: S1, S2 heard. No murmurs, gallops, or rubs. Regular rate and rhythm. Respiratory: Diffuse expiratory and inspiratory rhonchi. Some crackles noted in both pulmonary lopez. The patient is not using any accessory muscles or having work of breathing. Abdomen: Soft, nontender to palpation. Bowel sounds present. No organomegaly. Extremities: No clubbing, cyanosis, or edema. Peripheral pulses present in both legs. Neurological: Patient alert and oriented x3. Moves 4 extremities. LABORATORY DATA: Reviewed. ASSESSMENT AND PLAN: 1. Acute hypoxemic respiratory failure secondary to poorly differentiated adenocarcinoma of the lungs. This is basically the reason why this patient continues to be short of breath. At this point, we are waiting for oncology to see if he is a candidate for chemotherapy or not. At this point, antibiotics have been stopped yesterday, and he continues to be on intravenous steroids. Pulmonary is also following this patient. We will follow recommendations. 2. Chronic obstructive pulmonary disease exacerbation. We will continue with intravenous steroids and breathing treatments as well. 3. Abdominal wall edema. We will continue with Lasix. 4. Disposition. We will continue to monitor the patient closely. cc: Imtiaz Taylor MD
[2019-12-03] MEDS ORDERED: CYANOCOBALAMIN SUBQ ONE ×2 (21:00→21:30)
[2019-12-03] MEDS: FOLIC ACID PO SCH (21:55)
--- NOTE | 2019-12-04 00:53 | PULMONOLOGY PROGRESS NOTE ---
DATE: 12/03/2019 SUBJECTIVE: The patient is awake and alert. He reports his breathing is about the same. OBJECTIVE: Vital Signs: The patient has been afebrile for the last 24 hours. Blood pressure 119/56, heart rate 80, respiratory rate 18, oxygen saturation 100%. HEENT: Pupils are equal and reactive. Oropharynx appears clear. Neck: Supple. Chest: Reveals coarse crackles bilaterally. Cardiac: S1-S2. Abdomen: Scaphoid and soft. Extremities: Without edema. LABORATORIES: White blood count 24.8 thousand, hemoglobin 10.1, platelet count 324,000. Sodium 144, potassium 4.2, chloride 100, bicarbonate 35, BUN 19, creatinine 0.6. IMPRESSION: A 64-year-old with: 1. Multifocal bilateral poorly differentiated adenocarcinoma of the lung with lymphangitic spread. 2. Hypoxemic respiratory failure with ongoing high oxygen requirements. DISCUSSION: A 64-year-old with problems outlined above. His hypoxemia is related to the tumor and not to an underlying infection. He is unlikely to be discharged home without clinical improvement. I spoke with Dr. Ordaz on the phone and his only option is to receive chemotherapy as an inpatient. PLAN: 1. Anticipate transfer to the floor where chemotherapy can be given. 2. Continue high-flow oxygen. 3. Overall prognosis is guarded to poor. cc: Jose Ignacio MD
[2019-12-04] MEDS: SOLU-MEDROL IV SCH ×4 (02:56→21:24)
[2019-12-04] MEDS: DUONEB (A & A) INH SCH ×6 (03:26→23:39)
[2019-12-04] MEDS: LOVENOX SUBQ SCH (07:02)
[2019-12-04 07:44] LABS: BASO# 0.01 X1000 (0.0-0.2); EOS# 0.28 X1000 (0.0-0.7); EOS% 1.1 % (0.0-10.0); HEMATOCRIT 33.4 % (42.0-52.0); HEMOGLOBIN 9.9 g/dL (14.0-18.0); IMM GRAN# 0.14 X1000 (0.0-0.04); IMM GRAN% 0.6 % (0.0-0.5); LYMPH% 4.7 % (20.5-51.1); MCH 30.4 PG (27-31); MCHC 29.6 g/dL (33-37); MCV 102.5 FL (81-99); MONO# 1.24 X1000 (0.11-0.59); MONO% 4.9 % (1.7-9.3); NEUT# 22.41 X1000 (1.4-6.5); NEUT% 88.7 % (42.2-75.2); PLT 329 X1000 (130-400); RBC 3.26 XMIL (4.7-6.1); WBC 25.28 X1000 (4.8-10.8)
[2019-12-04 08:00] LABS: AGAP 7; BUN 21 mg/dL (8-22); CALCIUM 8.7 mg/dL (8.8-10.2); CHLORIDE 101 mmol/L (98-107); COSMO 295; CREATININE 0.6 mg/dL (0.7-1.2); ESTIMATED GFR > 60; GLUCOSE 93 mg/dL (70-104); POTASSIUM 3.8 mmol/L (3.5-5.1); SODIUM 147 mmol/L (136-145); TCO2 39 mmol/L (25-35)
[2019-12-04 08:07] LABS: ANISOCYTOSIS 2+; EOS 1 % (1-10); HYPOCHROM 1+; LYMPHS 5 % (21-51); MONO 5 % (1-9); SEGS 89 % (42-75)
[2019-12-04] MEDS: LASIX IV SCH ×2 (09:35→21:24)
[2019-12-04] MEDS: COLACE PO SCH ×2 (09:35→21:25)
[2019-12-04] MEDS: SODIUM CHLORIDE 0.9% INJ SCH (09:35)
[2019-12-04] MEDS: FOLIC ACID PO SCH (09:35)
[2019-12-04] MEDS: PROTONIX IV SCH (09:35)
[2019-12-04] MEDS: MIRALAX PO SCH (09:36)
--- NOTE | 2019-12-04 11:26 | PROGRESS NOTE ---
DATE: 12/04/2019 SUBJECTIVE: Patient reports feeling fine. No complaints at this time. OBJECTIVE: Vital Signs: Temperature 98.7 degrees, heart rate 77, respiratory rate 18, blood pressure 108/56, O2 saturation 95% on nonrebreather mask. General Examination: This is a 64-year- old male, lying in bed, in no acute distress. Cardiovascular: S1, S2 heard. No murmurs, gallops, or rubs. Regular rate and rhythm. Respiratory: Some crackles and inspiratory rhonchi in both pulmonary lopez. Patient not using any accessory muscles or having work of breathing. Abdomen: Soft. Nontender to palpation. Bowel sounds present. No organomegaly. Extremities: No clubbing, cyanosis, or edema. Peripheral pulses present in both legs. Neurological: The patient is alert and oriented x3. Moves 4 extremities. LABORATORY DATA: Reviewed. ASSESSMENT AND PLAN: 1. Acute hypoxemic respiratory failure secondary to poorly differentiated adenocarcinoma of the lungs. Oncology has decided to provide chemotherapy here in the hospital. The patient continues to require high amounts of oxygen. At this point, we will continue to monitor CBC and BMP daily. Pulmonary also has been following this patient. 2. Chronic obstructive pulmonary disease exacerbation. We will continue with breathing treatments and intravenous steroids. 3. Abdominal wall edema. We will continue with Lasix. 4. Disposition. We will continue following leads from Oncology. cc: Imtiaz Taylor MD
[2019-12-04] MEDS: ZYPREXA PO SCH (12:57)
[2019-12-04] MEDS ORDERED: EMEND 150 MG in NS 145 ML IV ONE (14:00)
[2019-12-04] MEDS ORDERED: ZOFRAN 16 MG in NS 50 ML IV ONE (14:30)
[2019-12-04] MEDS ORDERED: KEYTRUDA 200 MG in NS 100 ML IV ONE (15:00)
[2019-12-04] MEDS ORDERED: ALIMTA IV ONE (15:30)
[2019-12-04] MEDS ORDERED: NS IV ONE ×2 (15:30→16:00)
[2019-12-04] MEDS ORDERED: PARAPLATIN IV ONE (16:00)
--- NOTE | 2019-12-05 00:11 | PULMONOLOGY PROGRESS NOTE ---
DATE: 12/04/2019 SUBJECTIVE: Mr. Fung states that he is feeling much better today. He has no complaints. He states his breathing is has improved slightly. OBJECTIVE: Vital Signs: Blood pressure is 123/40 with a heart rate of 73, respirations are 16, temperature is 98.8 degrees with O2 saturations that are 94% on a non-rebreather. Cardiovascular: Regular rate and rhythm. S1 and S2 appreciated. He has no lower extremity edema. Calves nontender bilateral. Pulmonary: Breath sounds with some crackles at the bases. Chest rises and falls symmetric with respiration. Chest wall is nontender to palpation. Gastrointestinal: Abdomen is soft, nontender, nondistended with bowel sounds in all 4 quadrants. Neurologic: Alert and oriented x3. LABORATORIES: WBC is 25 with hemoglobin 9.9, hematocrit 33.4 and platelets 329,000. Sodium 147, potassium 3.8, BUN 21, creatinine 0.6 with a glucose of 93. ASSESSMENT: 1. Multifocal bilateral poorly differentiated adenocarcinoma of the lungs with lymphangitic spread. 2. Hypoxemic respiratory failure with ongoing high oxygen requirements. PLAN: 1. We will continue with high-flow oxygen with steroids and bronchodilators. 2. Plan was discussed with Dr. Ignacio. Dictated by JOE Mccrary for Jose Ignacio MD cc: JOE Mccrary MD
[2019-12-05] MEDS: DUONEB (A & A) INH SCH ×6 (03:05→22:47)
[2019-12-05] MEDS: LOVENOX SUBQ SCH (06:21)
[2019-12-05] MEDS: SOLU-MEDROL IV SCH ×4 (06:21→23:36)
[2019-12-05] MEDS ORDERED: PREDNISONE PO SCH (09:00)
[2019-12-05] MEDS: ZYPREXA PO SCH (10:02)
[2019-12-05] MEDS: SODIUM CHLORIDE 0.9% INJ SCH (10:02)
[2019-12-05] MEDS: PROTONIX IV SCH (10:02)
[2019-12-05] MEDS: FOLIC ACID PO SCH (10:02)
[2019-12-05] MEDS: COLACE PO SCH ×2 (10:03→23:36)
[2019-12-05] MEDS: LASIX IV SCH ×2 (10:03→20:06)
[2019-12-05] MEDS: MIRALAX PO SCH (10:03)
[2019-12-05 10:56] LABS: BASO# 0.01 X1000 (0.0-0.2); BASO% 0.1 % (0.0-0.8); HEMOGLOBIN 9.9 g/dL (14.0-18.0); IMM GRAN# 0.07 X1000 (0.0-0.04); IMM GRAN% 0.4 % (0.0-0.5); LYMPH# 0.29 X1000 (1.2-3.4); LYMPH% 1.5 % (20.5-51.1); MCHC 29.1 g/dL (33-37); MONO# 0.25 X1000 (0.11-0.59); MONO% 1.3 % (1.7-9.3); MPV 10.5 FL (7.4-10.4); NEUT# 18.23 X1000 (1.4-6.5); NEUT% 96.7 % (42.2-75.2); PLT 304 X1000 (130-400); RDW 14.1 % (11.5-14.5); WBC 18.85 X1000 (4.8-10.8)
[2019-12-05 11:24] LABS: AGAP 8; BUN 28 mg/dL (8-22); CALCIUM 7.8 mg/dL (8.8-10.2); CHLORIDE 95 mmol/L (98-107); COSMO 290; CREATININE 0.6 mg/dL (0.7-1.2); ESTIMATED GFR > 60; GLUCOSE 185 mg/dL (70-104); POTASSIUM 3.9 mmol/L (3.5-5.1); SODIUM 140 mmol/L (136-145); TCO2 37 mmol/L (25-35)
[2019-12-05 12:35] LABS: BANDS 10 % (0-1); HYPOCHROM 1+; LYMPHS 2 % (21-51); SEGS 88 % (42-75)
--- NOTE | 2019-12-05 14:13 | PROGRESS NOTE ---
DATE: 12/05/2019 SUBJECTIVE: The patient reports feeling fine, reports not nauseated, not short of breath. Eating okay. Peeing okay. It looks like he has tolerated chemotherapy very well. OBJECTIVE: Vital Signs: Temperature 97.6, heart rate 81, respiratory rate 20, blood pressure 128/71, O2 saturation 98% on non-rebreather mask. General Examination: This is a 64-year-old male, lying in bed, in no acute distress. Cardiovascular: S1, S2 heard. No murmurs, gallops, or rubs. Regular rate and rhythm. Respiratory: Crackles and expiratory rhonchi in both pulmonary lopez. Patient not using any accessory muscles or having work of breathing. Abdomen: Soft, nontender to palpation. Bowel sounds present. No organomegaly. Extremities: No clubbing, cyanosis, or edema. Peripheral pulses present in both legs. Neurological: Patient alert and oriented x3. Moves 4 extremities. LABORATORY DATA: Reviewed. ASSESSMENT AND PLAN: 1. Acute hypoxemic respiratory failure secondary to poorly differentiated adenocarcinoma of the lungs. Oncology has started yesterday chemotherapy. Apparently he has tolerated the medications very well. Not complaining of any nausea or vomiting. At this point, we will continue to monitor CBC and BMP daily. Pulmonary is also following this patient. 2. Chronic obstructive pulmonary disease exacerbation. We will continue with breathing treatments and intravenous steroids. 3. Abdominal edema. We will continue with Lasix. 4. Disposition. We are following leads from Oncology. cc: Imtiaz Taylor MD
--- NOTE | 2019-12-05 18:19 | PULMONOLOGY PROGRESS NOTE ---
DATE: 12/05/2019 SUBJECTIVE: The patient is sitting up in the bed talking with visitors. He has no complaints at present. OBJECTIVE: Vital Signs: Blood pressure is 108/72 with heart rate of 73, respirations 16, temperature 98 degrees axillary with O2 saturations 96 to 98 percent on 100% nonrebreather. Cardiovascular: Regular rate and rhythm. S1 and S2 appreciated. He has no lower extremity edema. Calves nontender bilateral. Pulmonary: Breath sounds with some bibasilar crackles and expiratory wheezes. Chest rises and falls symmetric with respiration. Chest wall is nontender to palpation. Gastrointestinal: Abdomen is soft, nontender, nondistended. Bowel sounds in all 4 quadrants. Neurologic he is: Alert and oriented x3. LABS: WBC is 18 with hemoglobin 9.9, hematocrit 34, platelets of 304,000. Sodium 140, potassium 3.9, BUN 28, creatinine 0.6 with a glucose of 185. ASSESSMENT AND PLAN: 1. Multifocal bilateral poorly differentiated adenocarcinoma of the lungs with lymphangitic spread. 2. Hypoxemic respiratory failure with ongoing high oxygen requirements. PLAN: Will continue cycling BiPaP and 100% oxygen, steroids and bronchodilators. Further care per team. Plan was discussed with Dr. Ignacio. Dictated by JOE Mccrary for Jose Ignacio MD cc: JOE Mccrary MD [facility]
[2019-12-06] MEDS: DUONEB (A & A) INH SCH ×6 (03:21→22:58)
[2019-12-06] MEDS: LOVENOX SUBQ SCH (06:27)
[2019-12-06] MEDS: SOLU-MEDROL IV SCH ×4 (06:27→21:22)
[2019-12-06 08:42] LABS: AGAP 7; BUN 27 mg/dL (8-22); CALCIUM 8.1 mg/dL (8.8-10.2); CHLORIDE 97 mmol/L (98-107); COSMO 290; CREATININE 0.5 mg/dL (0.7-1.2); ESTIMATED GFR > 60; GLUCOSE 103 mg/dL (70-104); POTASSIUM 3.6 mmol/L (3.5-5.1); SODIUM 143 mmol/L (136-145); TCO2 39 mmol/L (25-35)
[2019-12-06 08:48] LABS: BASO# 0.01 X1000 (0.0-0.2); EOS# 0.06 X1000 (0.0-0.7); EOS% 0.2 % (0.0-10.0); HEMATOCRIT 32.9 % (42.0-52.0); HEMOGLOBIN 9.6 g/dL (14.0-18.0); IMM GRAN# 0.16 X1000 (0.0-0.04); IMM GRAN% 0.6 % (0.0-0.5); LYMPH# 0.53 X1000 (1.2-3.4); LYMPH% 1.9 % (20.5-51.1); MCH 29.8 PG (27-31); MCHC 29.2 g/dL (33-37); MCV 102.2 FL (81-99); MONO% 2.9 % (1.7-9.3); MPV 11.1 FL (7.4-10.4); NEUT% 94.4 % (42.2-75.2); PLT 296 X1000 (130-400); RBC 3.22 XMIL (4.7-6.1); WBC 27.86 X1000 (4.8-10.8)
[2019-12-06 09:45] LABS: BANDS 4 % (0-1); LYMPHS 2 % (21-51); MONO 2 % (1-9); SEGS 92 % (42-75)
[2019-12-06] MEDS: COLACE PO SCH ×2 (09:52→20:10)
[2019-12-06] MEDS: MIRALAX PO SCH (09:52)
[2019-12-06] MEDS: FOLIC ACID PO SCH (09:52)
[2019-12-06] MEDS: ZYPREXA PO SCH (09:52)
[2019-12-06] MEDS: SODIUM CHLORIDE 0.9% INJ SCH (09:52)
[2019-12-06] MEDS: LASIX IV SCH ×2 (09:52→20:08)
[2019-12-06] MEDS: PROTONIX IV SCH (09:52)
--- NOTE | 2019-12-06 15:55 | PROGRESS NOTE ---
DATE: 12/06/2019 SUBJECTIVE: Patient reports feeling fine. Breathing okay. No complaints at this time. OBJECTIVE: Vital Signs: Temperature 98.4 degrees, heart rate 89, respiratory rate 16, blood pressure 131/66, O2 saturation 98% on non-rebreather mask. General Examination: This is a 64- year-old male, lying in bed, in no acute distress. Cardiovascular: S1, S2 heard. No murmurs, gallops, or rubs. Regular rate and rhythm. Respiratory: Crackles and inspiratory wheezing in both pulmonary lopez. Patient is not using any accessory muscles or having work of breathing. Abdomen: Soft, nontender to palpation. Bowel sounds present. No organomegaly. Extremities: No clubbing, cyanosis, or edema. Peripheral pulses present in both legs. Neurological: Patient is alert and oriented x3. Moves four extremities. LABORATORY DATA: Reviewed. ASSESSMENT AND PLAN: 1. Acute hypoxemic respiratory failure secondary to poorly differentiated adenocarcinoma of the lungs. Oncology has provided first cycle of chemotherapy here in the hospital. Apparently, he has tolerated that very well. He is eating fine. Not complaining of any symptoms at this time, so we will keep this patient over the weekend. We will see tomorrow what else Oncology wants to do with him. From my standpoint, this patient cannot be discharged from the hospital because of his high oxygen requirements. Pulmonary is following this patient. We will follow recommendations. 2. Chronic obstructive pulmonary disease, not currently in exacerbation. We will continue with breathing treatments as needed and intravenous steroids but basically reason why this patient is short of breath is because of this disseminated lung cancer. 3. Abdominal edema. Will continue Lasix. 4. Disposition. Following the lead from Pulmonary and Oncology. cc: Imtiaz Taylor MD
--- NOTE | 2019-12-06 17:50 | PULMONOLOGY PROGRESS NOTE ---
DATE: 12/06/2019 OBJECTIVE: Mr. Fung states that he is feeling much better today. He denies any shortness of breath or any complaints. PHYSICAL EXAMINATION: Vital Signs: Blood pressure is 131/66, heart rate of 89, respirations are 16, temperature 98.4 degrees oral, O2 saturations are 96% to 100% on non- rebreather. HEENT: Head is normocephalic, atraumatic. Mucous membranes are moist. Pupils equal, round, react to light. Sclerae anicteric. Neck: Supple trachea midline. Cardiovascular: Regular rate and rhythm. S1 and S2 are appreciated. He has no lower extremity edema. Calves are nontender bilateral. Pulmonary: He does have some inspiratory wheezes scattered throughout. Chest rises and falls symmetric with respiration. Chest wall is nontender to palpation. Gastrointestinal: Soft, nontender, nondistended with bowel sounds in all 4 quadrants. Extremities: No clubbing, cyanosis, or edema. Peripheral pulses palpable x4 extremities. Neurologic: He is alert and oriented x3. LABS: WBC is 27.8 with hemoglobin 9.6, hematocrit 32.9, and platelets 296,000. Sodium 143, potassium 3.6, BUN 27, creatinine 0.5, glucose of 103. ASSESSMENT: 1. Multifocal bilateral poorly-differentiated adenocarcinoma of the lungs with lymphatic lymphangitic spread. 2. Hypoxemic respiratory failure with ongoing high oxygen requirements. PLAN: continue cycling BiPAP at 100% oxygen. Continue steroids and bronchodilators. Plan was discussed with Dr. Ignacio. Dictated by JOE Mccrary for Jose Ignacio MD cc: JOE Mccrary MD [facility]
[2019-12-07] MEDS: DUONEB (A & A) INH SCH ×6 (03:16→23:12)
[2019-12-07] MEDS: LOVENOX SUBQ SCH (06:15)
[2019-12-07] MEDS: SOLU-MEDROL IV SCH ×3 (06:15→20:04)
--- NOTE | 2019-12-07 06:28 | Diag Imaging Result Doc PS360 ---
CHEST-PORTABLE - 12/07/2019 INDICATION: abnormal exam COMPARISON: 12/03/2019 FINDINGS: Stable right PICC line in good position. Stable dense heterogeneous infiltrates bilaterally. Heart size is top normal. No pneumothorax or large pleural effusion. IMPRESSION: No change from prior. Electronically signed by David Gay 12/07/2019 6:26 AM
[2019-12-07] MEDS: COLACE PO SCH ×2 (09:17→20:04)
[2019-12-07] MEDS: LASIX IV SCH (09:17)
[2019-12-07] MEDS: FOLIC ACID PO SCH (09:17)
[2019-12-07] MEDS: ZYPREXA PO SCH (09:17)
[2019-12-07] MEDS: PROTONIX IV SCH (09:17)
[2019-12-07] MEDS: SODIUM CHLORIDE 0.9% INJ SCH (09:18)
[2019-12-07] MEDS: MIRALAX PO SCH (09:18)
--- NOTE | 2019-12-07 11:23 | PROGRESS NOTE ---
DATE: 12/07/2019 SUBJECTIVE: The patient reports feeling fine. No shortness of breath at rest. Denies any other complaint. No nausea or vomiting. OBJECTIVE: Vital Signs: Temperature 98.5 degrees, heart rate 94, respiratory rate 19, blood pressure 121/49, O2 saturation 94% on Venturi mask at 12%. General: This is a 64-year-old, male, lying in bed in no acute distress. Cardiovascular: S1, S2 heard. No murmurs, gallops, or rubs. Regular rate and rhythm. Respiratory: Crackles and inspiratory wheezing noted in both pulmonary lopez, basically unchanged in comparing with previous days. The patient is not using any accessory muscles or having work of breathing. Abdomen: Soft, nontender to palpation. Bowel sounds present. No organomegaly. Extremities: No clubbing, cyanosis, or edema. Peripheral pulses present in both legs. Neurological: The patient is alert and oriented x3. Moves all 4 extremities. LABORATORY DATA: Reviewed. ASSESSMENT AND PLAN: 1. Acute hypoxemic respiratory failure secondary to poorly-differentiated adenocarcinoma of the lung. Oncology has provided the first cycle of chemotherapy here in the hospital. The patient apparently has tolerated that very well. At this point, he continues to require high amounts of oxygen, and that is precluding us from discharging him home. Oncology and Pulmonary are following this patient. Will follow recommendations. 2. Chronic obstructive pulmonary disease, not in any exacerbation. Will provide breathing treatments as needed only. The patient is on intravenous steroids as per Pulmonary, 60 mg intravenously every 8 hours. Will leave the decision to change the doses of this medication to Pulmonary. 3. Abdominal wall edema. I think that condition is much better, so will stop Lasix. 4. Disposition. Following lead from Pulmonary and Oncology. cc: Imtiaz Taylor MD
[2019-12-07 16:11] LABS: BASO# 0.01 X1000 (0.0-0.2); EOS# 0.05 X1000 (0.0-0.7); EOS% 0.2 % (0.0-10.0); HEMOGLOBIN 9.9 g/dL (14.0-18.0); IMM GRAN# 0.05 X1000 (0.0-0.04); IMM GRAN% 0.2 % (0.0-0.5); LYMPH# 0.57 X1000 (1.2-3.4); LYMPH% 2.2 % (20.5-51.1); MCH 30.6 PG (27-31); MCV 101.9 FL (81-99); MONO# 0.25 X1000 (0.11-0.59); MPV 10.9 FL (7.4-10.4); NEUT% 96.4 % (42.2-75.2); PLT 293 X1000 (130-400); RBC 3.24 XMIL (4.7-6.1); RDW 14.5 % (11.5-14.5); WBC 25.53 X1000 (4.8-10.8)
[2019-12-07 16:26] LABS: AGAP 6; BUN 26 mg/dL (8-22); CALCIUM 8.5 mg/dL (8.8-10.2); CHLORIDE 94 mmol/L (98-107); COSMO 279; CREATININE 0.7 mg/dL (0.7-1.2); ESTIMATED GFR > 60; GLUCOSE 135 mg/dL (70-104); POTASSIUM 4.1 mmol/L (3.5-5.1); SODIUM 136 mmol/L (136-145); TCO2 36 mmol/L (25-35)
[2019-12-07 16:55] LABS: LARGE PLATELETS OCCASIONAL; LYMPHS 1 % (21-51); MONO 1 % (1-9); SEGS 98 % (42-75)
--- NOTE | 2019-12-07 21:56 | PULMONOLOGY PROGRESS NOTE ---
DATE: 12/07/2019 SUBJECTIVE: The patient is awake and alert. He reports his appetite continues to be excellent. He reports his shortness of breath is diminishing. OBJECTIVE: Vital Signs: The patient has been afebrile for the last 24 hours. Blood pressure 130/55, heart rate 98, respiratory rate 19, oxygen saturation 93% on 50% Venturi mask. HEENT: Pupils are equal and reactive. Oropharynx appears clear. Neck: Supple. Chest: Reveals crackles bilaterally. Cardiac exam: S1, S2. Abdomen: Soft. Extremities: Without edema. LABORATORIES: Chest x-ray reveals bilateral infiltrates. They may be marginally improved but not significantly so. IMPRESSION 1. Acute hypoxemic respiratory failure 2. Multifocal bilateral lung cancer Plan 1. Begin steroid weaning. 2. Guarded prognosis but clinically he appears improved. cc: Jose Ignacio MD MTDD
[2019-12-08] MEDS: DUONEB (A & A) INH SCH ×6 (03:19→23:10)
[2019-12-08] MEDS: LOVENOX SUBQ SCH (06:45)
[2019-12-08 07:51] LABS: AGAP 7; BUN 23 mg/dL (8-22); CALCIUM 8.1 mg/dL (8.8-10.2); CHLORIDE 101 mmol/L (98-107); COSMO 288; CREATININE 0.5 mg/dL (0.7-1.2); ESTIMATED GFR > 60; GLUCOSE 92 mg/dL (70-104); SODIUM 143 mmol/L (136-145); TCO2 35 mmol/L (25-35)
[2019-12-08 08:00] LABS: EOS# 0.37 X1000 (0.0-0.7); EOS% 1.6 % (0.0-10.0); HEMATOCRIT 33.1 % (42.0-52.0); HEMOGLOBIN 9.7 g/dL (14.0-18.0); IMM GRAN# 0.07 X1000 (0.0-0.04); IMM GRAN% 0.3 % (0.0-0.5); LYMPH% 3.9 % (20.5-51.1); MCH 29.6 PG (27-31); MCHC 29.3 g/dL (33-37); MCV 100.9 FL (81-99); MONO# 0.16 X1000 (0.11-0.59); MONO% 0.7 % (1.7-9.3); MPV 11.2 FL (7.4-10.4); NEUT# 21.38 X1000 (1.4-6.5); NEUT% 93.5 % (42.2-75.2); PLT 288 X1000 (130-400); RBC 3.28 XMIL (4.7-6.1); RDW 14.4 % (11.5-14.5); WBC 22.88 X1000 (4.8-10.8)
[2019-12-08 08:14] LABS: EOS 2 % (1-10); LYMPHS 2 % (21-51); SEGS 96 % (42-75)
--- NOTE | 2019-12-08 08:35 | PROGRESS NOTE ---
DATE: 12/08/2019 SUBJECTIVE: The patient reports feeling fine. No shortness of breath at rest. Now, he is using Venturi mask. OBJECTIVE: Vital Signs: Temperature 98.7 degrees, heart rate 105, respiratory rate 24, blood pressure 113/67, O2 saturation 98% on Venturi mask at 15%. General: This is a 65-year-old, male, lying in bed in no acute distress. Cardiovascular: S1, S2 heard. No murmurs, gallops, or rubs. Regular rate and rhythm. Respiratory: Crackles and respiratory wheezing noted in both pulmonary lopez, basically unchanged in comparing with previous days. The patient is not using any accessory muscles or having work of breathing. Abdomen: Soft, nontender to palpation. Bowel sounds present. No organomegaly. Extremities: No clubbing, cyanosis, or edema. Peripheral pulses present in both legs. Neurologic: The patient is alert and oriented x3. Moves all 4 extremities. LABORATORY DATA: Pending at the time of my dictation. ASSESSMENT AND PLAN: 1. Acute hypoxemic respiratory failure secondary to poorly-differentiated adenocarcinoma of the lung. The patient has received first cycle of chemotherapy here. Oncology following this patient. Also, Pulmonary as well. They decided to start weaning off from intravenous steroids. Also, he is requiring oxygen by Venturi mask. I informed the patient that will need to see him on nasal cannula in order to discharge him. At this point, will continue to monitor this patient closely. 2. Chronic obstructive pulmonary disease, not in any exacerbation. Intravenous steroids will be weaning off per Pulmonary. 3. Abdominal wall edema, resolved. 4. Disposition. Following leads from Pulmonary and Oncology. cc: Imtiaz Taylor MD
[2019-12-08] MEDS: PREDNISONE PO SCH (09:28)
[2019-12-08] MEDS: FOLIC ACID PO SCH (09:28)
[2019-12-08] MEDS: MIRALAX PO SCH (09:28)
[2019-12-08] MEDS: COLACE PO SCH ×2 (09:28→23:19)
[2019-12-08] MEDS: SODIUM CHLORIDE 0.9% INJ SCH (09:29)
[2019-12-08] MEDS: PROTONIX IV SCH (09:29)
--- NOTE | 2019-12-08 21:51 | PULMONOLOGY PROGRESS NOTE ---
DATE: 12/08/2019 SUBJECTIVE: The patient is awake, alert, and conversant. He reports he is feeling better each day. He remains on a Venturi mask. OBJECTIVE: Vital Signs: The patient has been afebrile for the last 24 hours. Blood pressure 116/51, heart rate 95, respiratory rate 17, oxygen saturation 100% on Venturi mask. HEENT: Pupils are equal and reactive. Oropharynx is clear. Chest: Reveals crackles bilaterally. Cardiac: S1, S2. Abdomen: Soft and without hepatosplenomegaly. Extremities: Without edema. LABORATORIES: Additional pathology has returned on his biopsies. He has a high expression of PDL1 which suggests he will be a good target for Keytruda. IMPRESSION: 1. Bilateral multifocal lung cancer with lymphangitic spread. 2. Hypoxemic respiratory failure, with continued high oxygen requirements. 3. Adenocarcinoma, with high expression of PDL1. PLAN: 1. Continue to wean oxygen as tolerated. 2. Anticipate Keytruda utilization given high PDL1 expression. He has received a dose on 12/04/2019. cc: Jose Ignacio MD
[2019-12-09] MEDS: DUONEB (A & A) INH SCH ×6 (02:59→22:56)
[2019-12-09] MEDS: LOVENOX SUBQ SCH (06:40)
[2019-12-09] MEDS: PROTONIX PO SCH (06:40)
[2019-12-09] MEDS: PREDNISONE PO SCH (08:06)
[2019-12-09] MEDS: COLACE PO SCH (08:06)
[2019-12-09] MEDS: MIRALAX PO SCH (08:06)
[2019-12-09] MEDS: FOLIC ACID PO SCH (08:06)
--- NOTE | 2019-12-09 10:57 | PROGRESS NOTE ---
DATE: 12/09/2019 SUBJECTIVE: Patient reports not breathing okay. As per nursing staff, he started requiring BiPAP last night. Actually upon my examination, he is still requiring BiPAP. OBJECTIVE: Vital Signs: Temperature 98.2 degrees, heart rate 139, respiratory rate 26, blood pressure 116/66, O2 saturation 93% on non-rebreather mask. General Examination: This is a 65- year-old male, lying in bed in no acute distress. Cardiovascular: S1, S2 heard. No murmurs, gallops, or rubs. Regular rate and rhythm. Respiratory Exam: Crackles and respiratory wheezing noted in both pulmonary lopez. Basically unchanged compared with previous days. Patient is not using any accessory muscles or having work of breathing. Abdomen: Soft, nontender to palpation. Bowel sounds present. No organomegaly. Extremities: No clubbing, cyanosis, or edema. Peripheral pulses present in both legs. Neurological Exam: Patient alert and oriented x3. Moves 4 extremities. LABORATORY DATA: There are no labs from today. ASSESSMENT AND PLAN: 1. Acute hypoxemic respiratory failure secondary to poorly differentiated adenocarcinoma of the lung. Patient's oxygen requirements are getting higher. Not requiring a BiPAP. He is a little bit sleepy today. So, at this point, we will continue to monitor this patient closely, but for better monitoring I prefer to send her to [facility]. 2. Chronic obstructive pulmonary disease not in exacerbation. I think this worsening respiratory failure is because of the cancer, but we will continue with DuoNebs every 4 hours as scheduled. 3. Disposition: Following the lead from Pulmonary Oncology, I will transfer the patient to [facility]. cc: Imtiaz Taylor MD
[2019-12-09] MEDS ORDERED: LASIX IV ONE (17:20)
[2019-12-10] MEDS: COLACE PO SCH ×3 (00:27→20:23)
[2019-12-10] MEDS: DUONEB (A & A) INH SCH ×6 (03:19→23:45)
--- NOTE | 2019-12-10 03:44 | PULMONOLOGY PROGRESS NOTE ---
DATE: 12/09/2019 SUBJECTIVE: The patient is awake, alert and conversant. He has had some increased shortness of breath today. He does have some cough and sputum production. OBJECTIVE: Vital Signs: Maximum temperature in the last 24 hours is 99.9 degrees, blood pressure is 124/56, heart rate 104, respiratory rate 16, oxygen saturation 94%. HEENT:: Pupils are equal and reactive. Oropharynx is clear. Neck: Supple. Chest: Reveals rhonchi bilaterally. Cardiac: Increased rate. Regular rhythm. Abdomen: Soft. Extremities: Without edema. IMPRESSION: A 64-year-old with: 1. Multifocal lung cancer with lymphangitic spread. Pathology reveals adenocarcinoma with high expression of PDL1. 2. Hypoxemic respiratory failure. 3. Increasing dyspnea this evening. PLAN: 1. Continue nonrebreather for decreasing saturations. 2. Continue chemotherapy as outlined by Oncology. 3. Attempt to collect a sputum. He reports increased sputum which may represent an underlying infection, but may be related to tumor necrosis. 4. Diuretic trial. 5. X-ray and laboratory follow up tomorrow. cc: Jose Ignacio MD
[2019-12-10] MEDS: LOVENOX SUBQ SCH (06:29)
[2019-12-10] MEDS: PROTONIX PO SCH (06:30)
--- NOTE | 2019-12-10 07:02 | Diag Imaging Result Doc PS360 ---
EXAM: CHEST-PORTABLE 12/10/2019 HISTORY: abnormal exam TECHNIQUE: AP portable at 0613 COMMENT: There is alveolar opacity bilaterally particularly in the inferior portion of the right upper lobe and both lower lobes. There has been no appreciable change since 12/07/2019. IMPRESSION: Pulmonary edema and/or pneumonia. Electronically signed by Ramon Corona 12/10/2019 7:00 AM
[2019-12-10 08:09] LABS: EOS# 0.53 X1000 (0.0-0.7); EOS% 5.3 % (0.0-10.0); HEMATOCRIT 33.6 % (42.0-52.0); IMM GRAN# 0.04 X1000 (0.0-0.04); IMM GRAN% 0.4 % (0.0-0.5); LYMPH# 0.44 X1000 (1.2-3.4); LYMPH% 4.4 % (20.5-51.1); MCH 29.8 PG (27-31); MCHC 29.8 g/dL (33-37); MONO# 0.15 X1000 (0.11-0.59); MONO% 1.5 % (1.7-9.3); MPV 11.4 FL (7.4-10.4); NEUT# 8.85 X1000 (1.4-6.5); NEUT% 88.4 % (42.2-75.2); PLT 177 X1000 (130-400); RBC 3.36 XMIL (4.7-6.1); RDW 13.8 % (11.5-14.5); WBC 10.01 X1000 (4.8-10.8)
[2019-12-10 08:33] LABS: AGAP 3; ALB/GLOB RATIO 0.8; ALBUMIN 2.2 g/dL (3.5-5.0); ALKALINE PHOSPHATASE 95 U/L (32-122); BUN 27 mg/dL (8-22); CALCIUM 7.9 mg/dL (8.8-10.2); CHLORIDE 94 mmol/L (98-107); COSMO 283; CREATININE 0.8 mg/dL (0.7-1.2); ESTIMATED GFR > 60; GLUCOSE 202 mg/dL (70-104); GOT 21 U/L (10-34); GPT 72 U/L (10-44); MAGNESIUM 1.8 mg/dL (1.5-2.7); PHOSPHORUS 2.4 mg/dL (2.7-4.5); POTASSIUM 3.5 mmol/L (3.5-5.1); SODIUM 136 mmol/L (136-145); TCO2 39 mmol/L (25-35); TOTAL BILIRUBIN 0.22 mg/dL (0.20-1.00); TOTAL PROTEIN 5.1 g/dL (6.3-8.3)
[2019-12-10] MEDS: MIRALAX PO SCH (09:44)
[2019-12-10] MEDS: FOLIC ACID PO SCH (09:45)
[2019-12-10] MEDS: PREDNISONE PO SCH (09:45)
[2019-12-10] MEDS ORDERED: VANCOMYCIN IV PER PHARMACY MISC SCH (12:15)
[2019-12-10 12:25] LABS: BASO# 0.01 X1000 (0.0-0.2); BASO% 0.1 % (0.0-0.8); EOS# 0.43 X1000 (0.0-0.7); EOS% 3.9 % (0.0-10.0); HEMATOCRIT 34.7 % (42.0-52.0); HEMOGLOBIN 10.4 g/dL (14.0-18.0); IMM GRAN# 0.02 X1000 (0.0-0.04); IMM GRAN% 0.2 % (0.0-0.5); LYMPH# 0.37 X1000 (1.2-3.4); LYMPH% 3.4 % (20.5-51.1); MCH 29.9 PG (27-31); MCV 99.7 FL (81-99); MONO# 0.18 X1000 (0.11-0.59); MONO% 1.6 % (1.7-9.3); MPV 10.8 FL (7.4-10.4); NEUT# 10.01 X1000 (1.4-6.5); NEUT% 90.8 % (42.2-75.2); PLT 208 X1000 (130-400); RBC 3.48 XMIL (4.7-6.1); RDW 13.7 % (11.5-14.5); WBC 11.02 X1000 (4.8-10.8)
[2019-12-10 12:39] LABS: BANDS 1 % (0-1); EOS 5 % (1-10); LYMPHS 5 % (21-51); MONO 1 % (1-9); SEGS 88 % (42-75)
[2019-12-10 12:42] LABS: AGAP 8; BUN 24 mg/dL (8-22); CALCIUM 8.1 mg/dL (8.8-10.2); CHLORIDE 95 mmol/L (98-107); COSMO 279; CREATININE 0.7 mg/dL (0.7-1.2); ESTIMATED GFR > 60; GLUCOSE 118 mg/dL (70-104); POTASSIUM 3.9 mmol/L (3.5-5.1); SODIUM 137 mmol/L (136-145); TCO2 34 mmol/L (25-35)
--- NOTE | 2019-12-10 12:58 | PROGRESS NOTE ---
DATE: 12/10/2019 SUBJECTIVE: The patient reports breathing relatively okay. He has been requiring BiPAP last night. Today, he is requiring a non-rebreather mask. Looks somewhat tachypneic to me. No other complaints. OBJECTIVE: Vital Signs: Temperature 100.1 degrees, heart rate 124, respiratory rate 20, blood pressure 109/51. O2 saturation non-rebreather mask at 15 L nasal cannula. General: This is a 65- year-old male, lying in bed, in no acute distress. Cardiovascular: S1, S2 heard. No murmurs, gallops, or rubs. Regular rate and rhythm. Respiratory: Crackles and inspiratory wheezing noted in both pulmonary lopez, mostly noted in both bases but pretty much the same in comparing with previous days. Patient is not using any accessory muscles or having work of breathing. Abdomen: Soft, nontender to palpation. Bowel sounds present. No organomegaly. Extremities: No clubbing, cyanosis, or edema. Peripheral pulses present in both legs. Neurological: Patient alert and oriented x3. Moves 4 extremities. LABORATORY DATA: No labs from today. ASSESSMENT AND PLAN: 1. Acute hypoxemic respiratory failure secondary to poorly differentiated adenocarcinoma of the lungs. Oxygen need continues to be higher. The difference is patient looks short of breath at this time. He has been requiring BiPAP, now he is on non-rebreather mask and looks slightly short of breath to me. He has started spiking a fever today so this point I prefer to start him on antibiotics broad-spectrum. The x-ray from today shows pulmonary edema and/or pneumonia. White cell count has been elevated because of the IV steroids that he was on. Currently he is on prednisone 15 mg p.o. daily. He has received yesterday 1 dose of Lasix 80 mg IV as well. In order to monitor this patient closely, we will transfer him to [facility]. 2. Chronic obstructive pulmonary disease not in any exacerbation. We will continue with current management in this case, DuoNeb every 4 hours. I think his shortness of breath is related to his diffuse lung cancer and possible starting pneumonia here. He has been here for 15 days. We will continue to monitor. 3. Disposition. Patient is going to [facility] today. cc: Itmiaz Taylor MD
[2019-12-10] MEDS ORDERED: VANCOMYCIN 1,800 MG in NS 250 ML IV ONE (13:00)
[2019-12-10] MEDS: MERREM 1 GM in NS 50 ML IV SCH ×2 (13:16→20:30)
--- NOTE | 2019-12-11 00:38 | PULMONOLOGY PROGRESS NOTE ---
DATE: 12/10/2019 SUBJECTIVE: The patient is awake and alert. He is currently on BiPAP. He reports his breathing is not worse than yesterday, but that he does rest better on BiPAP. OBJECTIVE: Vital Signs: Maximum temperature in the last 24 hours is 100.1 degrees. BP 102/63, heart rate 107, respiratory rate 18, oxygen saturation 100%. HEENT: Pupils are equal and reactive. Oropharynx appears clear. Neck: Supple. Chest: Reveals good air entry bilaterally with diffuse crackles. Cardiac: S1-S2. Abdomen: Soft. Extremities: Without edema. LABORATORIES: Chest x-ray reveals diffuse bilateral infiltrates without significant change. Microbiology is growing a gram-positive cocci. White blood count 11.02, hemoglobin 10.4, platelet count 208,000. Sodium 137, potassium 3.9, chloride 95, bicarbonate 34, BUN 24, creatinine 0.7. IMPRESSION: A 64-year-old with: 1. Multifocal lung cancer with lymphangitic spread. 2. Hypoxemic respiratory failure. 3. Low-grade temperature with gram-positive cocci identified on sputum. PLAN: 1. Agree with broad spectrum antibiotics as been initiated by the hospitalist team covering both gram-positive and gram-negative organism. 2. Continue nonrebreather and cycle BiPAP as needed for comfort. 3. Discharge being delayed because the patient continues to require high oxygen. There is some discussion that the [facility] may want him transferred to [place]. cc: Jose Ignacio MD
[2019-12-11] MEDS: VANCOMYCIN 1,500 MG in NS 250 ML IV SCH ×2 (01:51→14:05)
[2019-12-11] MEDS: DUONEB (A & A) INH SCH ×6 (03:20→23:32)
[2019-12-11] MEDS: MERREM 1 GM in NS 50 ML IV SCH ×3 (05:05→19:43)
[2019-12-11] MEDS: LOVENOX SUBQ SCH (05:05)
[2019-12-11] MEDS: PROTONIX PO SCH ×2 (05:18→06:08)
[2019-12-11 06:29] LABS: EOS# 0.38 X1000 (0.0-0.7); EOS% 4.8 % (0.0-10.0); HEMATOCRIT 31.1 % (42.0-52.0); HEMOGLOBIN 9.1 g/dL (14.0-18.0); IMM GRAN# 0.03 X1000 (0.0-0.04); IMM GRAN% 0.4 % (0.0-0.5); LYMPH# 0.43 X1000 (1.2-3.4); LYMPH% 5.4 % (20.5-51.1); MCH 29.4 PG (27-31); MCHC 29.3 g/dL (33-37); MCV 100.6 FL (81-99); MONO# 0.25 X1000 (0.11-0.59); MONO% 3.2 % (1.7-9.3); MPV 11.3 FL (7.4-10.4); NEUT# 6.82 X1000 (1.4-6.5); NEUT% 86.2 % (42.2-75.2); PLT 167 X1000 (130-400); RBC 3.09 XMIL (4.7-6.1); RDW 13.2 % (11.5-14.5); WBC 7.91 X1000 (4.8-10.8)
[2019-12-11 06:48] LABS: AGAP 7; BUN 23 mg/dL (8-22); CALCIUM 7.3 mg/dL (8.8-10.2); CHLORIDE 99 mmol/L (98-107); COSMO 284; CREATININE 0.6 mg/dL (0.7-1.2); ESTIMATED GFR > 60; GLUCOSE 110 mg/dL (70-104); POTASSIUM 3.9 mmol/L (3.5-5.1); SODIUM 140 mmol/L (136-145); TCO2 34 mmol/L (25-35)
[2019-12-11] MEDS ORDERED: SODIUM PHOSPHATE 35 MMOL in NS 250 ML IV ONE (07:30)
[2019-12-11] MEDS: TUSSIONEX LIQUID PO PRN (07:35)
[2019-12-11] MEDS: COLACE PO SCH ×2 (09:04→20:47)
[2019-12-11] MEDS: FOLIC ACID PO SCH (09:04)
[2019-12-11] MEDS: MIRALAX PO SCH (09:04)
[2019-12-11] MEDS: PREDNISONE PO SCH (09:04)
--- NOTE | 2019-12-11 09:20 | PROVIDER PROGRESS NOTE ---
Progress Note Pulmonary additional note: I have seen and examined the case, reviewed the EMR, labs, latest images and other medical teams notes. Also reviewed the VACUUM FRAME OPERATOR notes and signed necessary form(s). I have noted changes in condition from yesterday. Please see also signed progress sheet. I reviewed the medications in summary list. I reviewed the orders of the patient. Acute respiratory failure with high O2 demand. I am sending to ICU. bilateral adenocarcinoma with lymphangitic spread and high oxygen requirements. High expression of PDL 1. He has received his first dose of chemotherapy. I checked Oxygen non-rebreather settings and titrated to patient needs per clinical protocols and watched the patient responses. Ordered ABG and ProBnp. Since yesterday, he remains in need for high FIO2 and I hope he may not need intubation. Prognosis: Guarded for now. [facility] depends on cancer response to treatment. I reviewed latest notes from Dr. Jose and Dr. Ignacio. Discussed with patient and his RN. I did the evaluation exam and management on the other sheet and the MARKET DEVELOPMENT MANAGER did the scribing only. I spent 34 minutes in this process
--- NOTE | 2019-12-11 09:21 | PROGRESS NOTE ---
DATE: 12/11/2019 SUBJECTIVE: Patient is definitely coughing more than the last couple of days. He is a little bit more sleepy. He is requiring Ventimask at the time of my examination, and as I mentioned before he is coughing more yellowish sputum during the last couple of days. He spiked fever yesterday but he has not during the last 24 hours. OBJECTIVE: Vital Signs: Temperature 98.1 degrees, heart rate 117, respiratory rate 20, blood pressure 110/64, O2 saturation 100% on non-rebreather mask. General Examination: This is a 65- year-old male, lying in bed, in no acute distress. Cardiovascular: S1, S2 heard. No murmurs, gallops, or rubs. Regular rate and rhythm. Respiratory Exam: Crackles, inspiratory wheezing and rhonchi noted in both pulmonary lopez, mostly noted in both bases. Basically, the same in comparing with a couple days ago. Patient is not using any accessory muscles or having work of breathing. Abdomen: Soft, nontender to palpation. Bowel sounds present. No organomegaly. Extremities: No clubbing, cyanosis, or edema. Peripheral pulses present in both legs. Neurological: Patient is a little bit sleepy this morning. Answered questions appropriately. Moves 4 extremities. LABORATORY DATA: White cell count 7.91, hemoglobin 9.1, hematocrit 31.1, platelets 167,000 with normal creatinine, phosphorus 2.4 from yesterday and calcium 7.3 from today. ASSESSMENT AND PLAN: 1. Acute hypoxemic respiratory failure, poorly differentiated adenocarcinoma of the lung. The patient has been admitted 8 days His respiratory failure is getting worse. In this hospitalization we found out that he has lung adenocarcinoma so we consulted Oncology. Because of his high oxygen needs he received the first cycle of chemotherapy here in the hospital. The patient remains still here in the hospital because of his oxygen needs. During the last couple days he started feeling more agitated and dyspneic. His sputum culture shows gram- positive cocci, so I decided to place this patient on vancomycin and meropenem. Because of persistent cough, I prefer to provide p.r.n. Tussionex. The patient continues to be on prednisone 30 mg p.o. daily as per Pulmonary recommendations. Also received 1 dose of Lasix yesterday 80 mg IV 1 dose. At this point, we will continue current management mentioned above. We are going to do a chest x-ray PA and lateral, tomorrow and we will continue to monitor this patient closely here in the PVC unit. 2. Chronic obstructive pulmonary disease. Most likely getting worse because of superimposed bacterial infection. We will continue with DuoNeb every 4 hours, oxygen supplementation and oral steroid. 3. Disposition. We will continue to monitor the patient closely in the PVC unit. cc: Imtiaz Taylor MD MTDD
[2019-12-11 10:17] LABS: ALLEN TEST YES; BE 11.3 mmoll (-3.0-3.0); BLOOD TYPE ARTERIAL; HCO3-(ACT) 33.6 mmoll (20.0-26.0); METHB 0.7 % (0.0-1.5); O2(CT) 13.8 mL/dL (15.0-23.0); O2HB 92.2 % (95.0-99.0); PO2(98.6) 62 mmHg (60-100); SAMPLE BLOOD; SAO2 95.6 % (95.0-100.0); THB 10.6 g/dL (11.5-17.4); pH(98.6) 7.36 (7.35-7.45)
[2019-12-11 10:18] LABS: MODALITY NRB; PCO2(98.6) 69 mmHg (35-45)
[2019-12-12] MEDS: VANCOMYCIN 1,500 MG in NS 250 ML IV SCH (01:47)
[2019-12-12] MEDS: DUONEB (A & A) INH SCH ×6 (03:01→23:26)
[2019-12-12] MEDS: MERREM 1 GM in NS 50 ML IV SCH ×3 (03:45→20:09)
[2019-12-12 04:28] LABS: ALLEN TEST YES; BE 12.7 mmoll (-3.0-3.0); BLOOD TYPE ARTERIAL; HCO3-(ACT) 34.8 mmoll (20.0-26.0); O2(CT) 13.7 mL/dL (15.0-23.0); O2HB 95.1 % (95.0-99.0); PO2(98.6) 79 mmHg (60-100); SAMPLE BLOOD; SAO2 98.3 % (95.0-100.0); SRATE 4 BPM; THB 10.2 g/dL (11.5-17.4)
[2019-12-12 04:29] LABS: MODALITY BI PAP; PCO2(98.6) 64 mmHg (35-45)
[2019-12-12 05:30] LABS: BASO# 0.01 X1000 (0.0-0.2); BASO% 0.1 % (0.0-0.8); EOS# 0.29 X1000 (0.0-0.7); EOS% 3.5 % (0.0-10.0); HEMATOCRIT 31.6 % (42.0-52.0); HEMOGLOBIN 9.2 g/dL (14.0-18.0); IMM GRAN# 0.02 X1000 (0.0-0.04); IMM GRAN% 0.2 % (0.0-0.5); LYMPH# 0.55 X1000 (1.2-3.4); LYMPH% 6.7 % (20.5-51.1); MCH 29.5 PG (27-31); MCHC 29.1 g/dL (33-37); MCV 101.3 FL (81-99); MONO% 4.9 % (1.7-9.3); MPV 11.2 FL (7.4-10.4); NEUT# 6.93 X1000 (1.4-6.5); NEUT% 84.6 % (42.2-75.2); PLT 195 X1000 (130-400); RBC 3.12 XMIL (4.7-6.1)
[2019-12-12] MEDS: PROTONIX PO SCH (06:17)
[2019-12-12] MEDS: LOVENOX SUBQ SCH (06:17)
[2019-12-12 06:18] LABS: AGAP 9; BUN 20 mg/dL (8-22); CALCIUM 8.1 mg/dL (8.8-10.2); CHLORIDE 93 mmol/L (98-107); COSMO 276; CREATININE 0.6 mg/dL (0.7-1.2); ESTIMATED GFR > 60; GLUCOSE 162 mg/dL (70-104); PHOSPHORUS 2.4 mg/dL (2.7-4.5); POTASSIUM 3.9 mmol/L (3.5-5.1); SODIUM 135 mmol/L (136-145); TCO2 33 mmol/L (25-35)
[2019-12-12] MEDS: PREDNISONE PO SCH (09:26)
[2019-12-12] MEDS: FOLIC ACID PO SCH (09:26)
[2019-12-12] MEDS: COLACE PO SCH ×2 (09:27→20:00)
[2019-12-12] MEDS: MIRALAX PO SCH (09:27)
[2019-12-12] MEDS: TUSSIONEX LIQUID PO PRN ×2 (09:31→23:52)
--- NOTE | 2019-12-12 12:02 | PROVIDER PROGRESS NOTE ---
Progress Note Pulmonary additional note: I have seen and examined the case, reviewed the EMR, labs, latest images and other medical teams notes. Also reviewed the VAMP MAKER notes and signed necessary form(s). I have noted changes in condition from yesterday. Please see also signed progress sheet. I reviewed the medications in summary list. I reviewed the orders of the patient. Acute respiratory failure with high O2 demand. I am sending to ICU. bilateral adenocarcinoma with lymphangitic spread and high oxygen requirements. High expression of PDL 1. He has received his first dose of chemotherapy. I checked Oxygen non-rebreather settings and titrated to patient needs per clinical protocols and watched the patient responses. Ordered ABG and ProBnp. Since yesterday, he remains in ICU (we transferred yesterday) in need for high FIO2 and I hope he may not need intubation. Prognosis: Guarded for now. intermediate designer depends on cancer response to treatment. I reviewed latest notes from Dr. Jose. Discussed with patient and his RN. I did the evaluation exam and management on the other sheet and the NEWSPAPER PUBLISHER did the scribing only. I spent 35 minutes in this process
--- NOTE | 2019-12-12 16:03 | PROGRESS NOTE ---
DATE: 12/12/2019 INTERVAL HISTORY: The patient with slightly decreased O2 sats yesterday despite non-rebreather. Moved to ICU by pulmonology and placed on BiPAP. Remains on BiPAP this morning. If he removes it even for a brief period to eat, he seems to desaturate. Still a little bit of wheezing, but he is denying any dyspnea currently. Remains afebrile. No other acute events and no new complaints. REVIEW OF SYSTEMS: Twelve point review of systems negative except as per interval history. LABS: WBC 8.2, hemoglobin 9.2, hematocrit 31.6, platelets 195,000. ABG with pH 7.4, pCO2 64, PO2 79 on BiPAP with 100% oxygen. Sodium 135, potassium 3.9, BUN 20, creatinine 0.6, glucose 162. VITALS: T-max 99.1 degrees, pulse 104, respirations 23, blood pressure 119/68, O2 saturation 97% on BiPAP with 100% oxygen. PHYSICAL EXAMINATION: General: No acute distress. Vitals: As above. HEENT: Normocephalic, atraumatic. Moist mucous membranes. No cervical adenopathy on BiPAP. Cardiovascular: Regular rate and rhythm. No murmurs noted. Pulmonary: Slight expiratory wheeze with decreased but reasonable air entry. Bibasilar crackles and a few scattered rales elsewhere. Abdomen: Soft, nontender, nondistended. Bowel sounds positive. Extremities: Peripheral pulses intact. No clubbing or cyanosis. Neurologic: Cranial nerves grossly intact. No focal deficits identified. Psychiatric: Normal mood and affect. Awake, alert, answers questions appropriately and cooperative. ASSESSMENT AND PLAN: Acute hypoxemic respiratory failure, acute on likely chronic hypercapnic respiratory failure, lung cancer, likely pneumonia, COPD. The patient with numerous factors contributing to his respiratory failure. CO2 still up but likely at or near baseline given normal PA. Still requiring 100% oxygen. Had to be put on BiPAP yesterday. Has a little bit of wheezing, but fairly but pretty reasonable air entry overall, so I doubt his COPD is contributing strongly. On antibiotics with vancomycin and Merrem, but suspect his lung cancer is a strong contributor here. We will continue treatment and see how far we get. They did go ahead and give the first round of chemo while he was here in the hospital. Continue steroids and nebulizers as well. Pulmonology following. We will see if they have any further recommendations.
[2019-12-12] MEDS: VANCOMYCIN 1,800 MG in NS 250 ML IV SCH (16:27)
[2019-12-13] MEDS: VANCOMYCIN 1,800 MG in NS 250 ML IV SCH ×2 (03:22→17:02)
[2019-12-13] MEDS: MERREM 1 GM in NS 50 ML IV SCH ×3 (03:22→20:27)
[2019-12-13] MEDS: DUONEB (A & A) INH SCH ×6 (03:40→23:30)
[2019-12-13 04:55] LABS: ALLEN TEST YES; BE 11.6 mmoll (-3.0-3.0); BLOOD TYPE ARTERIAL; METHB 1.1 % (0.0-1.5); MODALITY BI PAP; O2(CT) 13.4 mL/dL (15.0-23.0); O2HB 95.9 % (95.0-99.0); PCO2(98.6) 55 mmHg (35-45); PO2(98.6) 98 mmHg (60-100); SAMPLE BLOOD; SAO2 99.7 % (95.0-100.0); SRATE 24 BPM; THB 9.8 g/dL (11.5-17.4); pH(98.6) 7.44 (7.35-7.45)
[2019-12-13] MEDS: LOVENOX SUBQ SCH (06:00)
[2019-12-13] MEDS: PROTONIX PO SCH (06:00)
[2019-12-13 06:14] LABS: BASO# 0.01 X1000 (0.0-0.2); BASO% 0.2 % (0.0-0.8); HEMOGLOBIN 8.9 g/dL (14.0-18.0); LYMPH# 0.75 X1000 (1.2-3.4); LYMPH% 11.6 % (20.5-51.1); MCHC 29.7 g/dL (33-37); MONO# 0.43 X1000 (0.11-0.59); MONO% 6.6 % (1.7-9.3); MPV 10.6 FL (7.4-10.4); PLT 171 X1000 (130-400); RBC 2.97 XMIL (4.7-6.1); RDW 12.9 % (11.5-14.5); WBC 6.47 X1000 (4.8-10.8)
[2019-12-13 06:54] LABS: EOS 4 % (1-10); LYMPHS 8 % (21-51); MONO 4 % (1-9); SEGS 84 % (42-75)
[2019-12-13 07:14] LABS: AGAP 7; BUN 17 mg/dL (8-22); CHLORIDE 96 mmol/L (98-107); COSMO 277; CREATININE 0.5 mg/dL (0.7-1.2); ESTIMATED GFR > 60; GLUCOSE 127 mg/dL (70-104); PHOSPHORUS 2.2 mg/dL (2.7-4.5); POTASSIUM 4.1 mmol/L (3.5-5.1); SODIUM 137 mmol/L (136-145); TCO2 34 mmol/L (25-35)
[2019-12-13] MEDS: FOLIC ACID PO SCH (08:05)
[2019-12-13] MEDS: PREDNISONE PO SCH (08:05)
[2019-12-13] MEDS: COLACE PO SCH ×2 (08:05→20:27)
--- NOTE | 2019-12-13 08:14 | Diag Imaging Result Doc PS360 ---
CHEST-1 VIEW - 12/13/2019 INDICATION: SOB COMPARISON: 12/10/2019 FINDINGS: Stable right PICC line in good position. There is significant worsening in the dense, heterogeneous consolidation diffusely and bilaterally. There are probably small pleural effusions. Heart size remains stable. IMPRESSION: Severe worsening from prior. Electronically signed by David Gay 12/13/2019 8:12 AM
[2019-12-13] MEDS ORDERED: MAXIPIME 1 GM in NS 50 ML IV SCH (09:00)
--- NOTE | 2019-12-13 09:02 | PROVIDER PROGRESS NOTE ---
Progress Note Pulmonary additional note: I have seen and examined the case, reviewed the EMR, labs, latest images and other medical teams notes. Also reviewed the CHARGER OPERATOR HELPER notes and signed necessary form(s). I have noted changes in condition from yesterday. Please see also signed progress sheet. I reviewed the medications in summary list. I reviewed the orders of the patient. Acute respiratory failure with high O2 demand. I am sending to ICU. bilateral adenocarcinoma with lymphangitic spread and high oxygen requirements. High expression of PDL 1. He has received his first dose of chemotherapy. ARDS. Pneumonia is possible. He is on vancomycin and Merrem. I checked Oxygen and Bipap settings and titrated to patient needs per clinical protocols and watched the patient responses. Ordered CXR's. Since yesterday, CXR is worse but satisfactory oxygenation with Bipap at 80%. he remains in ICU (we transferred yesterday) in need for high FIO2 and I hope he may not need intubation. Prognosis: Guarded for now. shelter depends on cancer response to treatment. I reviewed latest notes from Dr. Estrada. Case and progress was discussed with the patient and his at the bedside and their questions were answered to their satisfaction. Discussed with patient and his RN. I did the evaluation exam and management on the other sheet and the FASHION INTERN did the scribing only. I spent 32 minutes in this process
[2019-12-13] MEDS: TUSSIONEX LIQUID PO PRN ×2 (11:05→23:00)
[2019-12-13] MEDS: MIRALAX PO SCH (11:05)
--- NOTE | 2019-12-13 17:45 | PROGRESS NOTE ---
DATE: 12/13/2019 INTERVAL HISTORY: Patient remains on BiPAP. Still with high oxygen requirements although slightly improved from previous. Was on 100% oxygen yesterday. Was turned down as low as 60 or 70 overnight back up to 80 this morning. One low-grade fever overnight to 100.9 but that has not been repeated so far. Still gets extremely short of breath with minimal exertion and desaturates if the BiPAP is taken off even briefly but no other acute events, no new complaints. REVIEW OF SYSTEMS: Still some largely nonproductive cough, 12 point review of systems otherwise negative except as per interval history. LABS: WBC 6.47, hemoglobin 8.9, hematocrit 30, platelets 171,000. ABG with pH 7.4, pCO2 55, PO2 98 on BiPAP with 80% oxygen. Sodium 137, potassium 4.1, BUN 17, creatinine 0.5, glucose 127 . IMAGING: Chest x-ray with significant worsening and dense bilateral infiltrates. VITALS: T-max 100.9 degrees, pulse 103, respirations 21, blood pressure 132/73, O2 saturation 99% on BiPAP with 80% oxygen. PHYSICAL EXAM: General: No acute distress. Chronically ill appearing. Vitals as above. HEENT: Normocephalic, atraumatic. Moist mucous membranes on BiPAP. Cardiovascular: Slightly tachycardic but regular, no murmurs noted. Pulmonary: Very faint wheeze remains slightly decreased throughout. Bibasilar crackles still present and a few scattered rales elsewhere, possibly slightly more pronounced than previous. Abdomen: Soft, nontender, nondistended. Bowel sounds positive. Extremities: Peripheral pulses intact. No clubbing or cyanosis. Neurologic: Cranial nerves grossly intact, mild global weakness but no focal deficits noted. Psychiatric: Normal mood and affect. Awake, alert, cooperative, answers questions appropriately. ASSESSMENT AND PLAN: 1. Acute hypoxemic and acute on chronic hypercapnic respiratory failure. Multifactorial as below. 2. Pneumonia, sepsis. Patient lactate remains negative on ABG this morning but fairly significant worsening of his infiltrates on x-ray. Did have a fever overnight up to 100.9. Original blood cultures negative but I am going to go ahead and repeat those. On antibiotics with vancomycin and Merrem currently. Will go ahead get ID to see him as his pneumonia looks to be getting worse. Continue to monitor closely in ICU. 3. Chronic obstructive pulmonary disease, very minimal wheezing. I do not believe that acute chronic obstructive pulmonary disease exacerbation is playing a significant role in his current issues. His chronic obstructive pulmonary disease is likely the source of his chronic hypercapnia which looks to be at or near baseline on his most recent ABG. Continue monitoring, continue prednisone and DuoNebs. 4. Lung cancer, new diagnosis for the patient fairly extensive. Received his 1st dose of chemo while in the hospital. Suspect this is strong contributor to his current respiratory issues. Oncology following. Patient has been here long enough that he is actually getting close to being due for another round of chemo. Will see what Oncology says. 5. Anemia likely anemia chronic disease relatively stable. 6. Hyponatremia resolved, monitor. 7. Hyperglycemia pretty minimal likely steroid induced, monitor.
[2019-12-14] MEDS: DUONEB (A & A) INH SCH ×2 (03:28→08:15)
[2019-12-14 04:30] LABS: ALLEN TEST YES; BLOOD TYPE ARTERIAL; HCO3-(ACT) 35.1 mmoll (20.0-26.0); PO2(98.6) 117 mmHg (60-100); SAMPLE BLOOD; pH(98.6) 7.38 (7.35-7.45)
[2019-12-14 04:31] LABS: MODALITY BI PAP; PCO2(98.6) 70 mmHg (35-45)
[2019-12-14] MEDS: MERREM 1 GM in NS 50 ML IV SCH (04:44)
[2019-12-14] MEDS: LOVENOX SUBQ SCH (06:00)
[2019-12-14] MEDS: PROTONIX PO SCH (06:00)
[2019-12-14 06:41] LABS: BASO# 0.01 X1000 (0.0-0.2); BASO% 0.2 % (0.0-0.8); EOS# 0.24 X1000 (0.0-0.7); EOS% 3.8 % (0.0-10.0); HEMATOCRIT 29.8 % (42.0-52.0); HEMOGLOBIN 8.8 g/dL (14.0-18.0); LYMPH# 0.75 X1000 (1.2-3.4); LYMPH% 11.9 % (20.5-51.1); MCH 30.2 PG (27-31); MCHC 29.5 g/dL (33-37); MCV 102.4 FL (81-99); MONO# 0.54 X1000 (0.11-0.59); MONO% 8.6 % (1.7-9.3); MPV 11.1 FL (7.4-10.4); NEUT# 4.76 X1000 (1.4-6.5); NEUT% 75.5 % (42.2-75.2); PLT 167 X1000 (130-400); RBC 2.91 XMIL (4.7-6.1); RDW 12.9 % (11.5-14.5)
[2019-12-14 06:58] LABS: AGAP 6; BUN 17 mg/dL (8-22); CALCIUM 8.5 mg/dL (8.8-10.2); CHLORIDE 97 mmol/L (98-107); COSMO 280; CREATININE 0.5 mg/dL (0.7-1.2); ESTIMATED GFR > 60; GLUCOSE 106 mg/dL (70-104); POTASSIUM 4.4 mmol/L (3.5-5.1); SODIUM 139 mmol/L (136-145); TCO2 36 mmol/L (25-35)
[2019-12-14] MEDS ORDERED: MERREM 2 GM in NS 50 ML IV SCH (07:16)
--- NOTE | 2019-12-14 08:00 | INFECTIOUS DISEASE CONSULT REP ---
DATE: 12/14/2019 CONCLUSION: The patient has been diagnosed with interstitial lung disease, and it appears that he has developed a superimposed pneumonia. RECOMMENDATIONS: I agree with treating the patient with vancomycin and meropenem. I have increased the dose of meropenem 2 g IV every 8 hours, and I have also started the patient on azithromycin. Some of the side effects of the antibiotics, including rash, diarrhea, seizures, renal toxicity and ototoxicity have been explained to the patient, who agrees with treatment. DISCUSSION: I was unable to get a history from the patient because he was wearing a BiPAP mask. He had recently been in the hospital because of having pneumonia, and he was diagnosed also with having interstitial lung disease and emphysema. He was sent home on Levaquin. His condition got worse, so he has been readmitted to the hospital, and he is in intensive care unit. His studies thus far show a CBC with a white count of 6300, hemoglobin 8.8, and platelet count 167,000. Blood gases show a pH of 7.38, a PO2 of 117 and a pCO2 of 70. Creatinine is 0.5. GFR is greater than 60. Liver function studies are normal, except for an ALT of 72. Blood cultures are pending. Patient had bronchoscopy performed by Dr. Ignacio. The cultures from the bronchial washings are normal oral raquel. Gram stain of the washing show gram-positive cocci. The influenza screen is negative. Chest x-ray shows dense bilateral infiltrates. PAST MEDICAL HISTORY: Positive for interstitial lung disease, cigarette smoking, and emphysema. PAST SURGICAL HISTORY: The patient denied having any surgery. REVIEW OF SYSTEMS: Eyes and ears: The patient seemed to have good vision and hearing. Neck: No stiffness. Respiratory: See present illness. Cardiac: No chest pains or palpitations. GI: No nausea, vomiting or diarrhea. : No dysuria or flank pain. Neurologic: The patient does not have seizures. His memory is good. SOCIAL HISTORY: The patient is . He is a . He goes to the [place]. He has been a long- term cigarette smoker, and he indicated to me that he stopped smoking 4 months ago. The patient also drank alcoholic beverages and stopped that 3 years ago. He does not use any illicit drugs. ALLERGIES: The patient has no drug allergies. MEDICATIONS TAKEN AT HOME: Include albuterol inhaler, Levaquin and prednisone. PHYSICAL EXAMINATION: Vital Signs: Temperature earlier was 101, now it is 99. Pulse 111, respirations 30, blood pressure is 138/78. The patient is 5 feet 10 inches tall and weighs 149 pounds. General: This is a fairly healthy-appearing, middle-aged male. He does seem to have dyspnea at rest. Head/eyes/ears/nose/throat: Patient is wearing a BiPAP mask. He can hear my spoken words and see near objects. I did not see any white coating of his tongue. Neck: No meningismus. Lungs: There were diminished breath sounds on the left side, and on the right side I heard rales and rhonchi. Cardiovascular: Heart rate is regular. Abdomen: Soft and not tender. Neurologic: The patient is awake. He can move his extremities. He was able to answer questions by shaking his head yes and no. He did move his extremities to my request. Thank you for the consult. cc: Roshan Mejia MD
[2019-12-14] MEDS: ZITHROMAX 500 MG/NS 500 MG/250 ML IVPB IV SCH (08:30)
--- NOTE | 2019-12-14 08:31 | Diag Imaging Result Doc PS360 ---
EXAM: CHEST-1 VIEW 12/14/2019 HISTORY: SOB TECHNIQUE: AP portable at 0519 COMMENT: There is a PICC line with its tip in the superior vena cava. There is alveolar opacity bilaterally. Some improvement has occurred since the previous study of 12/13/2019 with respect to the lower lobes. IMPRESSION: Slightly improved pulmonary edema versus pneumonia. Electronically signed by Ramon Corona 12/14/2019 8:29 AM
[2019-12-14] MEDS ORDERED: LASIX IV ONE (08:41)
[2019-12-14] MEDS: PREDNISONE PO SCH (09:10)
[2019-12-14] MEDS: FOLIC ACID PO SCH (09:10)
[2019-12-14] MEDS: VANCOMYCIN 2 GM in NS 500 ML IV SCH ×2 (09:10→21:16)
[2019-12-14] MEDS: MIRALAX PO SCH (09:11)
[2019-12-14] MEDS: COLACE PO SCH ×2 (09:11→20:25)
[2019-12-14] MEDS: TUSSIONEX LIQUID PO PRN ×2 (10:58→22:43)
[2019-12-14] MEDS: DUONEB (A & A) INH PRN (11:50)
[2019-12-14] MEDS: XOPENEX NEB INH SCH ×4 (11:51→23:34)
[2019-12-14] MEDS: ATROVENT NEB INH SCH ×4 (11:51→23:34)
--- NOTE | 2019-12-14 11:58 | PROGRESS NOTE ---
DATE: 12/14/2019 SUBJECTIVE: The patient is awake. Seems to be doing okay on the BiPAP. No major complaints. OBJECTIVE: Blood pressure is 136/87, heart rate of 116, respiratory rate of 29, temperature was 99 degrees, with no temperature since yesterday morning. Cardiovascular: He was tachycardic. Pulmonary: He had end-expiratory wheezes throughout. Some rales. GI: Soft, nontender, nondistended. Bowel sounds were positive. He had some nonpitting edema in his arms. White count 6, hemoglobin and hematocrit 8.8 and 29.8, platelets of 167,000. PH 7.38, pCO2 of 70, PaO2 of 117. Basic was normal. PROBLEM LIST: 1. Acute on chronic hypercapnic, hypoxic failure due to pneumonia, chronic obstructive pulmonary disease, lung cancer. He continues to require the BiPAP, although he has been able to get off of it for short periods. 2. Pneumonia. Appears to be worse per chest x-ray, although today's looks a little better. He is on vancomycin and meropenem which he has been on the vancomycin since the , meropenem as well but I am not entirely sure of those doses again but in any case, he seems to be doing okay. He is also on azithromycin. 3. Chronic obstructive pulmonary disease. He does have some wheezing. Continue breathing treatments and follow closely. 4. Lung cancer. Unclear how much this is contributing. Apparently, he has had chemotherapy but we are going to continue to follow. 5. Anemia, stable. DISPOSITION: Pending clinical status. Prognosis is still guarded. Discussed the case with the family. cc: Terrell Gary MD
[2019-12-14] MEDS: MERREM 2 GM in NS 100 ML IV SCH ×2 (12:00→19:40)
--- NOTE | 2019-12-14 22:09 | PULMONOLOGY PROGRESS NOTE ---
DATE: 12/14/2019 SUBJECTIVE: The patient is sleeping. He was evaluated, but not awoken. He appears to be comfortable on BiPAP. OBJECTIVE: Vital Signs: Maximum temperature in the last 24 hours is 100.9 degrees. Blood pressure 157/73, heart rate 104, respiratory rate 24, oxygen saturation 97% on BiPAP. HEENT: Pupils are equal and reactive. Oropharynx appears clear, but dry. Neck: Supple. Chest: Reveals crackles bilaterally. Cardiac: S1, S2, increased rate. Abdomen: Soft. Extremities: Without edema. LABORATORIES: Arterial blood gas reveals a pH 7.38, pCO2 of 70, pO2 of 117. MICROBIOLOGY: No new microbiology data. IMPRESSION: A 64-year-old with: 1. Multifocal lung cancer, with lymphangitic spread. 2. Acute hypoxemic respiratory failure. 3. Lack of improvement following initial course of chemotherapy. PLAN: 1. Continue to cycle non-rebreather/high-flow oxygen/BiPAP as tolerated. 2. Chemotherapy per Oncology. 3. Agree with antibiotics, although this may simply represent progression of his lung cancer. 4. Overall prognosis is guarded. cc: Jose Ignacio MD
[2019-12-15] MEDS: MERREM 2 GM in NS 100 ML IV SCH ×3 (03:19→18:58)
[2019-12-15] MEDS: ATROVENT NEB INH SCH ×6 (03:41→23:33)
[2019-12-15] MEDS: XOPENEX NEB INH SCH ×6 (03:41→23:33)
[2019-12-15 04:42] LABS: ALLEN TEST YES; BE 15.5 mmoll (-3.0-3.0); BLOOD TYPE ARTERIAL; HCO3-(ACT) 36.9 mmoll (20.0-26.0); O2HB 90.2 % (95.0-99.0); PO2(98.6) 59 mmHg (60-100); SAMPLE BLOOD; SAO2 93.1 % (95.0-100.0); THB 9.4 g/dL (11.5-17.4); pH(98.6) 7.36 (7.35-7.45)
[2019-12-15 04:44] LABS: MODALITY BI PAP; PCO2(98.6) 77 mmHg (35-45)
[2019-12-15 05:09] LABS: BASO# 0.01 X1000 (0.0-0.2); BASO% 0.2 % (0.0-0.8); EOS# 0.18 X1000 (0.0-0.7); EOS% 2.7 % (0.0-10.0); HEMATOCRIT 30.6 % (42.0-52.0); HEMOGLOBIN 8.8 g/dL (14.0-18.0); LYMPH# 0.76 X1000 (1.2-3.4); LYMPH% 11.5 % (20.5-51.1); MCH 29.5 PG (27-31); MCHC 28.8 g/dL (33-37); MCV 102.7 FL (81-99); MONO# 0.44 X1000 (0.11-0.59); MONO% 6.6 % (1.7-9.3); MPV 10.7 FL (7.4-10.4); NEUT# 5.24 X1000 (1.4-6.5); PLT 171 X1000 (130-400); RBC 2.98 XMIL (4.7-6.1); RDW 12.9 % (11.5-14.5); WBC 6.63 X1000 (4.8-10.8)
[2019-12-15 05:32] LABS: AGAP 6; BUN 18 mg/dL (8-22); CALCIUM 8.6 mg/dL (8.8-10.2); CHLORIDE 98 mmol/L (98-107); COSMO 286; CREATININE 0.5 mg/dL (0.7-1.2); ESTIMATED GFR > 60; GLUCOSE 117 mg/dL (70-104); POTASSIUM 4.2 mmol/L (3.5-5.1); SODIUM 142 mmol/L (136-145); TCO2 38 mmol/L (25-35)
[2019-12-15] MEDS: LOVENOX SUBQ SCH (06:13)
[2019-12-15] MEDS: PROTONIX PO SCH (06:13)
[2019-12-15] MEDS: ZITHROMAX 500 MG/NS 500 MG/250 ML IVPB IV SCH (06:31)
--- NOTE | 2019-12-15 07:36 | Diag Imaging Result Doc PS360 ---
CHEST-1 VIEW - 12/15/2019 INDICATION: SOB COMPARISON: 12/14/2019 FINDINGS: Stable right PICC line in good position. There is worsening in the density of the consolidation at the left lung base. There are air bronchograms in the left lower lobe. There are significant dense bilateral infiltrates. Heart size is top normal. There are small bilateral pleural effusions. IMPRESSION: Worsening from prior. Electronically signed by David Gay 12/15/2019 7:34 AM
[2019-12-15] MEDS: MIRALAX PO SCH (08:10)
[2019-12-15] MEDS: COLACE PO SCH ×2 (08:10→22:03)
[2019-12-15] MEDS: PREDNISONE PO SCH (08:10)
--- NOTE | 2019-12-15 09:35 | INFECTIOUS DISEASE PROGRESS NO ---
DATE: 12/15/2019 PRESENT ILLNESS: The patient has been diagnosed with interstitial lung disease and the patient appears to have developed a superimposed pneumonia. MEDICATIONS: The patient is on day 1 of azithromycin and day 5 of treatment with meropenem and vancomycin. PHYSICAL EXAMINATION: Vital Signs: Temperature is 98.5 degrees, pulse 112, respirations 23, blood pressure 133/82. General: This is an ill-appearing, middle-aged male. He is wearing a BiPAP mask. Head, Eyes, Ears, Nose, and Throat: As mentioned above, the patient has a BiPAP mask on. He can see near objects. He can hear my spoken words. I did not see any white patches in his mouth. Neck: No pain with movement. Lungs: Clear to auscultation. Cardiovascular: Heart rate is regular. Abdomen: Soft and nontender. Neurologic: The patient is awake. He can move his extremities. There is no tremor. LAB AND X-RAY: There is no chest x-ray for today at this time. The CBC shows a white count of 6630, hemoglobin 8.8, and platelet count 171,000. Blood gases show a pH of 7.36, a PO2 of 59, a pCO2 of 77. Creatinine is 0.5. GFR is greater than 60. ASSESSMENT AND PLAN: The patient has interstitial lung disease which I think is complicated by a superimposed pneumonia. My plan is to continue with azithromycin, meropenem, and vancomycin. In addition, I am going to obtain a procalcitonin level to see if pneumonia is likely. COMORBIDITIES: His main comorbidity is that he has interstitial lung disease. He is a cigarette smoker and he has emphysema. cc: Roshan Mejia MD
[2019-12-15] MEDS: FOLIC ACID PO SCH (09:38)
[2019-12-15] MEDS: VANCOMYCIN 2 GM in NS 500 ML IV SCH (09:54)
[2019-12-15] MEDS: TUSSIONEX LIQUID PO PRN (11:48)
--- NOTE | 2019-12-15 12:26 | PROGRESS NOTE ---
DATE: 12/15/2019 SUBJECTIVE: Patient has no major complaints. OBJECTIVE: Vital signs: Blood pressure is 134/79, heart rate of 107, respiratory rate of 21, temperature was 97.4 degrees. Cardiovascular: Regular rate and rhythm. Pulmonary: Bilateral breath sounds. Gastrointestinal: Soft, nontender, nondistended. Bowel sounds were positive. LABORATORY DATA: White count 6.6, hemoglobin and hematocrit 8.8 and 30, platelets of 171,000. pH 7.36, pCO2 of 77, PaO2 of 59. That is on 100%. Basic was okay. PROBLEM LIST: 1. Acute on chronic hypercapnic, hypoxic respiratory failure due to pneumonia. We will continue BiPAP and follow. We are going try to titrate. Unfortunately, it does look like he is decompensating somewhat so I am not sure if he is going to end up reintubated or not. I do not think the family is prepared for any other eventuality even though they probably should be. 2. Pneumonia which looks worse but this may be progression of cancer per Dr. Ignacio, which makes sense. We will continue antibiotics. He is on vancomycin and meropenem. Today will be day 2. ID is following. 3. Chronic obstructive pulmonary disease. Continue breathing treatments and follow closely. 4. Lung cancer. He has had chemotherapy. He is due for it this week. Awaiting any other recommendations from Dr. Ordaz, but we also have to kind of discuss short and long-term prognosis because right now if he ends up reintubated, I do not know if he is going to be stable enough for chemotherapy and this probably needs to be discussed with the family. 5. Anemia is stable currently. DISPOSITION: Prognosis is still fairly guarded. We will continue to follow closely. cc: Terrell Gary MD
[2019-12-15] MEDS ORDERED: LASIX IV ONE (12:28)
[2019-12-15] MEDS ORDERED: MORPHINE IV PRN (13:36)
[2019-12-15] MEDS: NS IV SCH (14:11)
[2019-12-15] MEDS: MORPHINE IV SCH (14:11)
--- NOTE | 2019-12-15 20:58 | PULMONOLOGY PROGRESS NOTE ---
DATE: 12/15/2019 SUBJECTIVE: The patient is sleeping. He is on BiPAP. His is at the bedside. OBJECTIVE: HEENT: Pupils are equal and reactive. Oropharynx could not be examined. Neck: Supple. Chest: Reveals diffuse crackles bilaterally. Cardiac exam: S1 and S2. Abdomen: Soft without hepatosplenomegaly. Extremities: Reveal trace edema. LABORATORIES: Chest x-ray reveals bilateral infiltrates with air bronchograms and small effusions. White blood count 6.63, hemoglobin 8.8, platelet count 171,000. Microbiology reveals no new data. IMPRESSION: A 64-year-old with: 1. Multifocal lung cancer with lymphangitic spread. 2. Hypoxemic respiratory failure. 3. Failure to improve after his initial course of chemotherapy. PLAN: 1. Lasix today (completed). 2. Continue to cycle high-flow oxygen and BiPAP. 3. Chemotherapy per Oncology. I believe his next dose is scheduled next week. 4. Overall prognosis is guarded to poor. I spoke with his this morning. She is aware that he may not improve, and she will try and address life support with him when he wakes up. cc: Jose Ignacio MD
[2019-12-16] MEDS: TUSSIONEX LIQUID PO PRN ×2 (00:22→12:12)
[2019-12-16] MEDS: MERREM 2 GM in NS 100 ML IV SCH ×3 (02:53→20:30)
[2019-12-16] MEDS: XOPENEX NEB INH SCH ×6 (03:23→23:34)
[2019-12-16] MEDS: ATROVENT NEB INH SCH ×6 (03:23→23:34)
[2019-12-16 05:11] LABS: ALLEN TEST YES; BE 19.6 mmoll (-3.0-3.0); BLOOD TYPE ARTERIAL; HCO3-(ACT) 40.1 mmoll (20.0-26.0); METHB 0.8 % (0.0-1.5); O2(CT) 15.6 mL/dL (15.0-23.0); O2HB 92.1 % (95.0-99.0); PO2(98.6) 71 mmHg (60-100); SAMPLE BLOOD; SAO2 95.3 % (95.0-100.0); pH(98.6) 7.33 (7.35-7.45)
[2019-12-16 05:23] LABS: MODALITY BI PAP; PCO2(98.6) 95 mmHg (35-45)
[2019-12-16 06:12] LABS: ESTIMATED GFR > 60
[2019-12-16 06:24] LABS: AGAP 6; BUN 18 mg/dL (8-22); CALCIUM 8.2 mg/dL (8.8-10.2); CHLORIDE 93 mmol/L (98-107); COSMO 283; CREATININE 0.5 mg/dL (0.7-1.2); GLUCOSE 123 mg/dL (70-104); POTASSIUM 4.2 mmol/L (3.5-5.1); SODIUM 140 mmol/L (136-145); TCO2 41 mmol/L (25-35)
[2019-12-16] MEDS: PROTONIX PO SCH ×2 (06:33→06:41)
[2019-12-16] MEDS: ZITHROMAX 500 MG/NS 500 MG/250 ML IVPB IV SCH (06:33)
[2019-12-16] MEDS: LOVENOX SUBQ SCH (06:33)
[2019-12-16 06:34] LABS: BASO# 0.01 X1000 (0.0-0.2); BASO% 0.1 % (0.0-0.8); EOS# 0.15 X1000 (0.0-0.7); EOS% 1.9 % (0.0-10.0); HEMATOCRIT 30.2 % (42.0-52.0); HEMOGLOBIN 8.8 g/dL (14.0-18.0); IMM GRAN# 0.02 X1000 (0.0-0.04); IMM GRAN% 0.2 % (0.0-0.5); LYMPH# 0.91 X1000 (1.2-3.4); LYMPH% 11.2 % (20.5-51.1); MCH 30.3 PG (27-31); MCHC 29.1 g/dL (33-37); MCV 104.1 FL (81-99); MONO# 0.39 X1000 (0.11-0.59); MONO% 4.8 % (1.7-9.3); NEUT# 6.61 X1000 (1.4-6.5); NEUT% 81.8 % (42.2-75.2); PLT 188 X1000 (130-400); RDW 12.9 % (11.5-14.5); WBC 8.09 X1000 (4.8-10.8)
--- NOTE | 2019-12-16 07:04 | INFECTIOUS DISEASE PROGRESS NO ---
DATE: 12/16/2019 PRESENT ILLNESS: The patient has interstitial lung disease with a possible superimposed bacterial pneumonia. MEDICATIONS: This is day 2 of azithromycin and day 6 of meropenem and vancomycin. PHYSICAL EXAMINATION: Vital Signs: Temperature is 99 degrees, pulse 104, respirations 22, blood pressure 148/70. General: This is an ill-appearing middle-aged male. He has a BiPAP mask on currently. HEENT: The patient has a BiPAP mask on. He is still able to talk. He does not have any white patches in his mouth. Neck: No pain with movement. Lungs: Clear to auscultation. Cardiovascular: Heart rate is regular. Abdomen: Soft, nontender. Neurologic: The patient is awake. He can move his extremities. He does not have a tremor. LABS AND X-RAY: Chest x-ray was not read by the radiologist. My reading of it is that the patient has bilateral infiltrates as he has been having recently. The patient's CBC result is pending. The creatinine is 0.5, GFR is greater than 60. Blood gases show a pH of 7.33, a PO2 of 71, and a pCO2 of 95. ASSESSMENT AND PLAN: The patient has an interstitial lung disease, which I think is complicated by a superimposed bacterial pneumonia. My plan is to continue azithromycin, meropenem and vancomycin. A procalcitonin level has been ordered but the results are not yet back. COMORBIDITIES: Interstitial lung disease, cigarette smoking, and emphysema. cc: Roshan Mejia MD MTDD
--- NOTE | 2019-12-16 07:42 | Diag Imaging Result Doc PS360 ---
CHEST-1 VIEW - 12/16/2019 INDICATION: SOB COMPARISON: 12/15/2019 FINDINGS: Stable right PICC line in good position. Stable dense, heterogeneous bilateral infiltrates. Heart size remains top normal. There are small to moderate pleural effusions. IMPRESSION: No change from prior. Electronically signed by David Gay 12/16/2019 7:39 AM
[2019-12-16] MEDS: MIRALAX PO SCH (08:52)
[2019-12-16] MEDS: FOLIC ACID PO SCH (08:52)
[2019-12-16] MEDS: PREDNISONE PO SCH (08:52)
[2019-12-16] MEDS: COLACE PO SCH ×2 (08:52→21:30)
[2019-12-16] MEDS: VANCOMYCIN 1,600 MG in NS 250 ML IV SCH ×2 (09:50→20:30)
[2019-12-16] MEDS ORDERED: LASIX IV ONE (11:34)
--- NOTE | 2019-12-16 12:15 | PROGRESS NOTE ---
DATE: 12/16/2019 SUBJECTIVE: The patient is more awake, alert. He does not seem to be struggling quite as much. His oxygen levels are actually a little bit better, although he is more hypercapnic. OBJECTIVE: Vital Signs: Blood pressure is 136/79, heart rate of 114, respiratory rate of 30, temperature 99.8 degrees, satting 95% and he is on 75% and seems to be doing okay. He is kind of holding his own. Generally: Mild increased work of breathing. Cardiovascular: Tachy. Pulmonary: Inspiratory rales. GI: Soft, nontender, nondistended. Bowel sounds were positive. LABORATORY: White count is 8, hemoglobin and hematocrit 8.8 and 30, platelets 188. A pH 7.33, pCO2 95, PaO2 71. The BiPAP has been adjusted. Basic is normal. PROBLEM LIST: 1. Acute chronic hypoxic and hypercapnic respiratory failure due to pneumonia, likely progression of non-small cell lung cancer. We will continue to follow. He is stable on BiPAP, and we are able to wean some of the oxygen, so the plan of care is to continue treatment up until he can get his next dose of chemo, which will be on the . His prognosis obviously is guarded for that amount of time, but we will follow. 2. Pneumonia. He is on antibiotics,vancomycin and meropenem, per Dr. Mejia day 3. Procalcitonin level is pending. We will continue to follow. 3. Chronic obstructive pulmonary disease. We will continue breathing treatments and adjust accordingly. 4. Non-small cell lung cancer. He has gotten Keytruda and carboplatin; he is due for next treatment on the seventh. Trying to continue supportive care until then. DISPOSITION: Pending his chemo, although prognosis is guarded,, that he can make it to that point and get treatment and improve, but we will continue all supportive care through that point unless things deteriorate. We will have to readdress those issues. cc: Terrell Gary MD
[2019-12-16] MEDS: MORPHINE IV SCH (15:13)
[2019-12-16] MEDS: NS IV SCH (15:13)
--- NOTE | 2019-12-16 20:01 | ECHO REPORT ---
ORDER DATE: 12/16/2019 INDICATION: Evaluate LV function, lung cancer. FINDINGS: 1. Right atrium appears normal in size. 2. Moderate tricuspid regurgitation. RV systolic pressure of 50. 3. Normal RV size and systolic function. 4. No significant pulmonic insufficiency. 5. Normal left atrial size with a dimension of 3.4 cm. 6. No mitral prolapse. Mild mitral regurgitation. 7. Normal LV size with an end-diastolic dimension of 3.7. Moderate left ventricular hypertrophy with a posterior and interventricular septal wall thickness of 1.5 and 1.6 cm respectively. Normal LV systolic function. 8. Calculated EF of 63% with normal wall motion. 9. Aortic valve opens well. No evidence of stenosis or insufficiency. 10. Aorta appears normal in visualized segments. 11. No pericardial effusion seen. 12. Grade 1 diastolic dysfunction. cc: MD Terrell Gonzalez MD
[2019-12-16] MEDS: SOLU-MEDROL IV SCH (21:33)
[2019-12-17] MEDS: MERREM 2 GM in NS 100 ML IV SCH ×3 (03:15→18:13)
[2019-12-17] MEDS: ATROVENT NEB INH SCH ×6 (03:54→23:02)
[2019-12-17] MEDS: XOPENEX NEB INH SCH ×6 (03:54→23:02)
[2019-12-17] MEDS: SOLU-MEDROL IV SCH ×3 (04:36→22:41)
[2019-12-17] MEDS ORDERED: LASIX IV ONE (05:00)
[2019-12-17 05:25] LABS: ALLEN TEST YES; BE 23.6 mmoll (-3.0-3.0); BLOOD TYPE ARTERIAL; HCO3-(ACT) 43.3 mmoll (20.0-26.0); METHB 1.2 % (0.0-1.5); O2(CT) 11.9 mL/dL (15.0-23.0); O2HB 93.8 % (95.0-99.0); PO2(98.6) 66 mmHg (60-100); SAMPLE BLOOD; SAO2 97.3 % (95.0-100.0); SRATE 20 BPM; pH(98.6) 7.51 (7.35-7.45)
[2019-12-17 05:26] LABS: MODALITY BI PAP; PCO2(98.6) 62 mmHg (35-45)
--- NOTE | 2019-12-17 05:58 | PULMONOLOGY PROGRESS NOTE ---
DATE: 12/16/2019 SUBJECTIVE: The patient is arousable to alert. He appears comfortable on BiPAP ventilation. OBJECTIVE: Vital Signs: The patient has been afebrile for the last 24 hours. Blood pressure 132/68, heart rate 98, respiratory rate 19, oxygen saturation 96%. HEENT: Pupils are equal and reactive. Oropharynx appears clear. Neck: Supple. Chest: Reveals diffuse bilateral crackles. Cardiac: S1, S2. Abdomen: Soft. Extremities: Without edema. LABORATORIES: Chest x-ray reveals bilateral infiltrates without change. Arterial blood gas reveals pH 7.33, pCO2 of 95, PO2 of 71. IMPRESSION: A 64-year-old with 1. Multifocal lung cancer with lymphangitic spread. 2. Hypoxemic respiratory failure with lack of improvement following chemotherapy. DISCUSSION: A 64-year-old with problems outlined above. He has not improved and has actually declined over the last 2 weeks. It is not clear he will tolerate another course of chemotherapy and it is not scheduled for another week. Palliative Care has evaluated this patient and he wishes to remain a full code. If intubated, he will likely on mechanical ventilation or withdrawal of care will be required. PLAN: 1. Increase steroid dosing. He did clinically have some improvement after his initial visit with steroids despite having a diagnosis of lung cancer. There may be an inflammatory component to his lung cancer. 2. Keep patient on the dry side. 3. Continue BiPAP p.r.n. 4. Prognosis is poor. cc: Jose Ignacio MD
[2019-12-17] MEDS: LOVENOX SUBQ SCH (06:42)
[2019-12-17] MEDS: PROTONIX PO SCH (06:42)
[2019-12-17] MEDS: ZITHROMAX 500 MG/NS 500 MG/250 ML IVPB IV SCH (06:43)
--- NOTE | 2019-12-17 06:50 | INFECTIOUS DISEASE PROGRESS NO ---
DATE: 12/17/2019 PRESENT ILLNESS: The patient has interstitial lung disease complicated by a superimposed bacterial pneumonia. MEDICATIONS: This is day 3 of azithromycin and day 7 of meropenem and vancomycin. PHYSICAL EXAMINATION: Vital Signs: Temperature is 97.5 degrees, pulse 102, respirations 24, blood pressure 120/73. General: This is a somewhat ill-appearing middle-aged male. He is in no acute distress. He is wearing a BiPAP mask. Head/Eyes/Ears/Nose/Throat: He can hear my spoken words and see near objects. There is no drainage from his nose or ears. Neck: No pain with movement. Lungs: The lungs are clear to auscultation. Cardiovascular: Heart rate is regular. Abdomen: Soft and nontender. Neurologic: The patient is alert. He was sitting up in bed. He does not have a tremor. He can move his extremities. LAB AND X-RAY: The x-ray for today has not been read by the radiologist. When I looked at it, I think the chest x-ray showed bilateral infiltrates, which were more prominent on the right side than the left side. There is no CBC or BMP for today. Blood gases show a pH of 7.51, a PO2 of 66, and a pCO2 of 32. Procalcitonin is 0.71, which means that the patient is very likely to have pneumonia. A chest x-ray has not been read, but by my reading there were bilateral infiltrates, which were more prominent on the right side than the left side. ASSESSMENT AND PLAN: The patient has interstitial lung disease complicated by a superimposed bacterial pneumonia. I plan to continue his current antibiotics, namely azithromycin, meropenem and vancomycin. COMORBIDITIES: Interstitial lung disease, cigarette smoking, and emphysema. cc: Roshan Mejia MD
--- NOTE | 2019-12-17 07:12 | Diag Imaging Result Doc PS360 ---
EXAM: CHEST-1 VIEW 12/17/2019 HISTORY: SOB TECHNIQUE: AP portable at 0511 COMMENT: There is a PICC line on the right with its tip in the superior vena cava. There is diffuse alveolar opacity particularly in the right upper lobe inferiorly. There are bilateral pleural fluid collections which appears slightly larger than on 12/16/2019. Otherwise are has been no appreciable change. Compared to 12/15/2019 there has been definite improvement. IMPRESSION: Pulmonary edema and/or pneumonia. Bilateral pleural effusions. Electronically signed by Ramon Corona 12/17/2019 7:10 AM
[2019-12-17] MEDS: VANCOMYCIN 1,600 MG in NS 250 ML IV SCH ×2 (08:35→21:08)
[2019-12-17] MEDS: COLACE PO SCH ×2 (08:36→21:21)
[2019-12-17] MEDS: FOLIC ACID PO SCH (08:36)
[2019-12-17] MEDS: MIRALAX PO SCH (08:36)
[2019-12-17 09:25] LABS: ESTIMATED GFR > 60
[2019-12-17 09:28] LABS: AGAP 7; BUN 21 mg/dL (8-22); CALCIUM 8.9 mg/dL (8.8-10.2); CHLORIDE 92 mmol/L (98-107); COSMO 286; CREATININE 0.5 mg/dL (0.7-1.2); GLUCOSE 136 mg/dL (70-104); POTASSIUM 4.8 mmol/L (3.5-5.1); SODIUM 141 mmol/L (136-145); TCO2 42 mmol/L (25-35)
[2019-12-17 10:08] LABS: HEMATOCRIT 32.4 % (42.0-52.0); HEMOGLOBIN 9.3 g/dL (14.0-18.0); MCHC 28.7 g/dL (33-37); MCV 104.5 FL (81-99); MPV 10.9 FL (7.4-10.4); PLT 171 X1000 (130-400); RDW 13.1 % (11.5-14.5); WBC 7.79 X1000 (4.8-10.8)
[2019-12-17 10:09] LABS: BASO# 0.03 X1000 (0.0-0.2); BASO% 0.4 % (0.0-0.8); IMM GRAN# 0.02 X1000 (0.0-0.04); IMM GRAN% 0.3 % (0.0-0.5); LYMPH# 0.67 X1000 (1.2-3.4); LYMPH% 8.6 % (20.5-51.1); MONO# 0.12 X1000 (0.11-0.59); MONO% 1.5 % (1.7-9.3); NEUT# 6.95 X1000 (1.4-6.5); NEUT% 89.2 % (42.2-75.2)
[2019-12-17] MEDS: TUSSIONEX LIQUID PO PRN (11:32)
[2019-12-17 11:46] LABS: LYMPHS 10 % (21-51); MONO 2 % (1-9); SEGS 88 % (42-75)
[2019-12-17 11:47] LABS: ANISOCYTOSIS 3+; HYPOCHROM 2+
--- NOTE | 2019-12-17 12:35 | PROGRESS NOTE ---
DATE: 12/17/2019 SUBJECTIVE: He has just more energy today, more talkative, a little bit more strength in his voice. OBJECTIVE: Vital signs: Blood pressure is 115/66, heart rate of 100, respiratory rate 25, temperature 98.3 degrees, 97% on 75%. Cardiovascular: Regular rate and rhythm. Pulmonary: Bilateral breath sounds clear to auscultation. Gastrointestinal: Soft, nontender, nondistended. Bowel sounds were positive. LABORATORY DATA: White count is 7, hemoglobin and hematocrit 9 and 32, platelets of 171,000. pH 7.51, pCO2 62, PaO2 66. Basic looked okay. Bicarb is rising a bit. Procalcitonin is positive, it is 0.71, so there is definitely a component of pneumonia. ASSESSMENT AND PLAN: 1. Acute on chronic hypoxic and hypercapnic respiratory failure. He is still BiPAP-dependent. We will continue to follow. He is certainly not declining, still able to wean but we really have not gotten him down very low amounts yet. Prognosis is still very guarded. He is not due for his treatment but for another 8 days. I am not sure if that timeframe can be shortened, but that will be a Heme-Onc call. 2. Pneumonia. We will continue vancomycin and meropenem, day [address]jia. Procalcitonin is elevated. Cultures are negative thus far. 3. Chronic obstructive pulmonary disease exacerbation. I agree with Dr. Ignacio with steroids and we will continue to monitor. 4. Non-small cell lung cancer. He is status post Keytruda and carboplatin treatment, due for another treatment in about, like I said, 8 days. DISPOSITION: Again, prognosis guarded but we will continue to follow closely. cc: Terrell Gary MD
[2019-12-17] MEDS: NS IV SCH (14:18)
[2019-12-17] MEDS: MORPHINE IV SCH (14:18)
--- NOTE | 2019-12-17 19:28 | PULMONOLOGY PROGRESS NOTE ---
DATE: 12/17/2019 SUBJECTIVE: The patient reports he feels a little better. He does get short of breath with any exertion. OBJECTIVE: Vital Signs: The patient has been afebrile for the last 24 hours. Blood pressure 141/69, heart rate 96, respiratory rate 16, oxygen saturation 94% on BiPAP. HEENT: Pupils are equal and reactive. Oropharynx appears clear. Neck: Supple. Chest: Scattered crackles bilaterally. Cardiac: S1, S2. Abdomen: Soft. Extremities: Without edema. LABORATORIES: Chest x-ray reveals bilateral pulmonary infiltrates. There has been some decrease in edema/fluid over the last 2 days. Arterial blood gas reveals pH 7.51, pCO2 of 62, pO2 of 66. Sodium 141, potassium 4.8, chloride 92, bicarbonate 42, BUN 21, creatinine 0.5. IMPRESSION: A 64-year-old with: 1. Multifocal lung cancer, with lymphangitic spread. 2. Hypoxemic respiratory failure. 3. Status post chemotherapy. PLAN: 1. Continue current steroid dosing. 2. Continue diuretics in an attempt to keep patient slightly dry. 3. Cycle BiPAP and oxygen p.r.n. 4. Prognosis is poor. cc: Jose Ignacio MD
[2019-12-18] MEDS: MERREM 2 GM in NS 100 ML IV SCH ×3 (02:42→18:02)
[2019-12-18] MEDS: ATROVENT NEB INH SCH ×6 (03:39→23:18)
[2019-12-18] MEDS: XOPENEX NEB INH SCH ×6 (03:39→23:18)
[2019-12-18 04:40] LABS: BASO# 0.01 X1000 (0.0-0.2); BASO% 0.1 % (0.0-0.8); HEMATOCRIT 26.4 % (42.0-52.0); HEMOGLOBIN 7.7 g/dL (14.0-18.0); IMM GRAN# 0.02 X1000 (0.0-0.04); IMM GRAN% 0.3 % (0.0-0.5); LYMPH# 0.73 X1000 (1.2-3.4); LYMPH% 10.2 % (20.5-51.1); MCH 30.3 PG (27-31); MCHC 29.2 g/dL (33-37); MCV 103.9 FL (81-99); MONO# 0.31 X1000 (0.11-0.59); MONO% 4.3 % (1.7-9.3); MPV 10.9 FL (7.4-10.4); NEUT% 85.1 % (42.2-75.2); PLT 210 X1000 (130-400); RBC 2.54 XMIL (4.7-6.1); WBC 7.17 X1000 (4.8-10.8)
[2019-12-18 04:53] LABS: AGAP 6; BUN 20 mg/dL (8-22); CALCIUM 8.2 mg/dL (8.8-10.2); CHLORIDE 95 mmol/L (98-107); COSMO 284; CREATININE 0.4 mg/dL (0.7-1.2); ESTIMATED GFR > 60; GLUCOSE 130 mg/dL (70-104); POTASSIUM 4.7 mmol/L (3.5-5.1); SODIUM 140 mmol/L (136-145); TCO2 39 mmol/L (25-35)
[2019-12-18 05:14] LABS: ALLEN TEST YES; BLOOD TYPE ARTERIAL; HCO3-(ACT) 44.5 mmoll (20.0-26.0); METHB 0.5 % (0.0-1.5); O2HB 97.4 % (95.0-99.0); PO2(98.6) 95 mmHg (60-100); SAMPLE BLOOD; SAO2 99.8 % (95.0-100.0); SRATE 15 BPM; THB 5.7 g/dL (11.5-17.4); pH(98.6) 7.47 (7.35-7.45)
[2019-12-18 05:15] LABS: MODALITY BI PAP
[2019-12-18 05:16] LABS: PCO2(98.6) 70 mmHg (35-45)
[2019-12-18] MEDS: SOLU-MEDROL IV SCH ×3 (06:00→22:19)
[2019-12-18] MEDS: LASIX IV SCH ×2 (06:00→08:36)
[2019-12-18] MEDS: PROTONIX PO SCH (06:01)
[2019-12-18] MEDS: LOVENOX SUBQ SCH (06:01)
[2019-12-18] MEDS: ZITHROMAX 500 MG/NS 500 MG/250 ML IVPB IV SCH (06:52)
--- NOTE | 2019-12-18 07:28 | Diag Imaging Result Doc PS360 ---
EXAM: CHEST-1 VIEW HISTORY: SOB TECHNIQUE: Single view COMPARISON: 12/17/2019 FINDINGS: There are dense diffuse bilateral infiltrates. The heart is not enlarged. The small bilateral pleural effusions. No change in the right-sided PICC line. IMPRESSION: No improvement Electronically signed by Tristan Mason 12/18/2019 7:25 AM
[2019-12-18] MEDS: VANCOMYCIN 1,600 MG in NS 250 ML IV SCH (08:36)
[2019-12-18] MEDS: FOLIC ACID PO SCH (08:36)
--- NOTE | 2019-12-18 08:37 | INFECTIOUS DISEASE PROGRESS NO ---
DATE: 12/18/2019 PRESENT ILLNESS: The patient has interstitial lung disease complicated by a superimposed bacterial pneumonia. Patient tells me that he is feeling better even though his chest x-ray does not show any improvement. MEDICATIONS: This is day 4 of treatment with aztreonam and day 8 of treatment with meropenem and vancomycin. PHYSICAL EXAMINATION: Vital Signs: Temperature is 98.7 degrees, pulse 93, respirations 21, blood pressure is 121/70. General: The patient is somewhat ill-appearing, but he now is wearing an oxygen mask and not the BiPAP mask he was on yesterday. Head/eyes/ears/nose/throat: He can hear my spoken words and see near objects. He does not have any white patches on his tongue. Neck: No pain with movement. Lungs: Clear to auscultation. Cardiovascular: Heart rate is regular. Abdomen: Soft and nontender. Neurologic: The patient is alert. He can move his extremities. He is able to sit up in bed and he carries on a coherent conversation. LAB AND X-RAY: Chest x-ray shows stable dense bilateral infiltrates. CBC shows a white count of 7170, hemoglobin 7.7, and platelet count 210,000. Blood gases show a pH of 7.47, a PO2 of 95 and a pCO2 of 70. The creatinine is 0.4. GFR is greater than 60. As I mentioned yesterday, the patient's procalcitonin is 0.71, which means the patient is very likely to have a pneumonia on top of his interstitial lung disease. ASSESSMENT AND PLAN: As mentioned above, the patient has a superimposed bacterial pneumonia. My plan is to continue his current antibiotics, namely azithromycin, meropenem and vancomycin. The patient tells me he is feeling better even though his chest x-ray does not show any improvement. COMORBIDITIES: Interstitial lung disease, cigarette smoking, and emphysema. cc: Roshan Mejia MD
[2019-12-18] MEDS: MIRALAX PO SCH (10:01)
[2019-12-18] MEDS: COLACE PO SCH ×2 (10:02→22:17)
--- NOTE | 2019-12-18 12:09 | PROGRESS NOTE ---
DATE: 12/18/2019 SUBJECTIVE: Patient has no complaints. OBJECTIVE: Vital Signs: Blood pressure 134/68, heart rate of 88, respiratory rate 31, temperature 98.7 degrees, 95% on 70%. Cardiovascular: Regular rate and rhythm. Pulmonary: Bilateral breath sounds clear to auscultation. Gastrointestinal: Abdomen soft, nontender, nondistended. Bowel sounds are positive. LABORATORY DATA: White count 7, hemoglobin and hematocrit 7.7, 26, platelets 210,000, pH 7.47, pCO2 70, PaO2 of 95. BUN and creatinine 20 and 0.4. Chest x-ray still shows diffuse interstitial infiltrates and it looks like he has got a right upper lobe infiltrate. 1. Acute on chronic hypoxic hypercapnic respiratory failure due to pneumonia and lung carcinomatosis. He is still intermittently on BiPAP, but he is holding his own. He is on 70%. We have not been able to wean significantly, but he is weaned from 100%, and he seems to be doing okay and not increased work of breathing. We will continue to follow. The next chemotherapy is due in about a week, so we will await that and follow. 2. Pneumonia. He is on day 5 of vancomycin and meropenem. Continue to follow per Dr. Mejia. 3. Chronic obstructive pulmonary disease exacerbation. He is on steroids and breathing treatments. 4. Non-small cell lung cancer. He is status post chemotherapy treatment x1. Next chemotherapy will be in 7 days. DISPOSITION: Prognosis still guarded. Continue monitor in the ICU if he has further decompensation. cc: Terrell Gary MD
[2019-12-18 12:12] LABS: HEMATOCRIT 27.6 % (42.0-52.0)
[2019-12-18] MEDS ORDERED: EMEND 150 MG in NS 145 ML IV ONE (13:00)
[2019-12-18] MEDS ORDERED: ALOXI IV ONE (13:20)
[2019-12-18] MEDS ORDERED: KEYTRUDA 200 MG in NS 100 ML IV ONE (13:30)
[2019-12-18] MEDS ORDERED: ALIMTA IV ONE (14:00)
[2019-12-18] MEDS ORDERED: NS IV ONE ×2 (14:00→14:30)
--- NOTE | 2019-12-18 14:14 | PROVIDER PROGRESS NOTE ---
Progress Note Dr. Escamilla Progress Note/Pulmonary and or critical care We appreciated progress of care, Complications, change in diagnosis, and instructions to patient. Subjective: We note the level of consciousness, bed (chair) position, family presence (if any), level of lethargy, feeling of symptoms, and changes from baseline condition/symptom. The patient is awake, lying in bed with no acute distress noted. He states he is feeling pretty well and ready for another chemotherapy. He has been on BiPAP overnight and tolerates well although this morning pCO2 is elevated up to 72 from 62 yesterday morning. He is on morphine drip at this time. Objective: Vital Signs: We reviewed EMR current values for Pulse rate, Blood pressure, Pulse rate, respiratory rate and Pulse oximetry. Also noted other values and trends if present (e.g. I/O, CVP). T 98.7 (no fever in last 24 hours), AR 100, RR 25, BP 121/70 and SaO2 99% on BiPAP 18/8, 75%. I/O +236 ml Physical Examination: General: Very pleasant. Lying in bed with no acute distress noted. HEENT: Normocephalic. Trachea midline. Mucosa pink and moist. Respiratory: Tachypnea. Symmetrical excursion. Inspiratory crackles bilaterally. CVS: S1 and S2 appreciated. Abdomen: Soft. Nontender. Nondistended. Bowel sounds present. Extremities: No pedal edema. Neuro: Awake. Alert. Follows commands. Labs and Radiology: Reviewed available labs and radiology values available at time of EMR review. Laboratory Results 12/18/19 12/18/19 12/18/19 04:09 04:09 05:03 WBC 7.17 RBC 2.54 L Hgb 7.7 L D Hct 26.4 L MCV 103.9 H MCH 30.3 MCHC 29.2 L RDW Std Deviation 13.0 Plt Count 210 MPV 10.9 H Immature Gran % (Auto) 0.3 Neut % (Auto) 85.1 H Lymph % (Auto) 10.2 L [place] % (Auto) 4.3 Eos % (Auto) 0.0 Baso % (Auto) 0.1 Immature Gran # (Auto) 0.02 Neut # (Auto) 6.10 Lymph # (Auto) 0.73 L [place] # (Auto) 0.31 Eos # (Auto) 0.00 Baso # (Auto) 0.01 Specimen Type ARTERIAL Sample Site R RADIAL pH 7.47 H pCO2 70 H* pO2 95 HCO3 44.5 H Base Excess 25.0 H Oxyhemoglobin 97.4 ABG O2 Sat (Calculated) 8.0 L ABG O2 Saturation 99.8 ABG Carboxyhemoglobin 1.90 ABG Methemoglobin 0.5 [place] Test YES A-a O2 Difference 352.0 Total Hemoglobin 5.7 L Lactate 1.70 Blood Gas Modality BI PAP Vent Mode BIPAP Spontaneous Rate 15 FiO2 % 75.0 Inspiratory BiPAP 18.0 Expiratory BiPAP 8.0 Sodium 140 Potassium 4.7 Chloride 95 L Carbon Dioxide 39 H Anion Gap 6 BUN 20 Creatinine 0.4 L Estimated GFR/1.73 m2 > 60 BUN/Creatinine Ratio 50 Glucose 130 H Calculated Osmolality 284 Calcium 8.2 L 12/18/19 12:02 WBC RBC Hgb 8.0 L Hct 27.6 L MCV MCH MCHC RDW Std Deviation Plt Count MPV Immature Gran % (Auto) Neut % (Auto) Lymph % (Auto) [place] % (Auto) Eos % (Auto) Baso % (Auto) Immature Gran # (Auto) Neut # (Auto) Lymph # (Auto) [place] # (Auto) Eos # (Auto) Baso # (Auto) Specimen Type Sample Site pH pCO2 pO2 HCO3 Base Excess Oxyhemoglobin ABG O2 Sat (Calculated) ABG O2 Saturation ABG Carboxyhemoglobin ABG Methemoglobin [place] Test A-a O2 Difference Total Hemoglobin Lactate Blood Gas Modality Vent Mode Spontaneous Rate FiO2 % Inspiratory BiPAP Expiratory BiPAP Sodium Potassium Chloride Carbon Dioxide Anion Gap BUN Creatinine Estimated GFR/1.73 m2 BUN/Creatinine Ratio Glucose Calculated Osmolality Calcium Assessment: Acute on chronic hypoxemic hypercapnic respiratory failure. 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 Pneumonitis secondary to chemotherapy with possible superimposed bacterial pneumonia. Procalcitonin on 12/15/19 elevated. Sputum culture on 12/10/19 was negative. Tobacco abuse. Full code. Plan: Continue current treatment and supportive care per admitting and other teams on the case. Cycle BiPAP and supplemental oxygen as needed. Diuresis. Bronchodilators. IV Solu-Medrol. Antibiotic including Azithromycin, Meropenem and vancomycin. Appropriate DVT and GI prophylaxis Input was appreciated from Admitting MD and other teams on the case. Evaluation time in minutes: 31 minutes.
[2019-12-18] MEDS ORDERED: PARAPLATIN IV ONE (14:30)
[2019-12-18] MEDS: MORPHINE IV SCH (16:39)
[2019-12-18] MEDS: NS IV SCH (16:39)
[2019-12-19] MEDS: MERREM 2 GM in NS 100 ML IV SCH ×3 (03:00→19:31)
[2019-12-19] MEDS: XOPENEX NEB INH SCH ×6 (03:20→23:21)
[2019-12-19] MEDS: ATROVENT NEB INH SCH ×6 (03:20→23:21)
[2019-12-19 04:51] LABS: ALLEN TEST YES; BLOOD TYPE ARTERIAL; METHB 0.7 % (0.0-1.5); O2(CT) 10.7 mL/dL (15.0-23.0); O2HB 92.3 % (95.0-99.0); PO2(98.6) 59 mmHg (60-100); SAMPLE BLOOD; SAO2 95.4 % (95.0-100.0); THB 8.2 g/dL (11.5-17.4); pH(98.6) 7.42 (7.35-7.45)
[2019-12-19 04:55] LABS: MODALITY BI PAP; PCO2(98.6) 76 mmHg (35-45)
[2019-12-19] MEDS: TUSSIONEX LIQUID PO PRN (05:54)
[2019-12-19] MEDS: PROTONIX PO SCH (05:58)
[2019-12-19] MEDS: SOLU-MEDROL IV SCH ×3 (06:00→20:28)
[2019-12-19] MEDS: LOVENOX SUBQ SCH (06:00)
[2019-12-19 06:22] LABS: HEMATOCRIT 26.3 % (42.0-52.0); HEMOGLOBIN 7.6 g/dL (14.0-18.0); LYMPH# 0.44 X1000 (1.2-3.4); LYMPH% 7.8 % (20.5-51.1); MCH 30.3 PG (27-31); MCHC 28.9 g/dL (33-37); MCV 104.8 FL (81-99); MONO# 0.35 X1000 (0.11-0.59); MONO% 6.2 % (1.7-9.3); MPV 10.9 FL (7.4-10.4); NEUT# 4.88 X1000 (1.4-6.5); PLT 276 X1000 (130-400); RBC 2.51 XMIL (4.7-6.1); RDW 13.2 % (11.5-14.5); WBC 5.67 X1000 (4.8-10.8)
[2019-12-19 06:30] LABS: AGAP 8; BUN 22 mg/dL (8-22); CALCIUM 8.4 mg/dL (8.8-10.2); CHLORIDE 94 mmol/L (98-107); COSMO 286; CREATININE 0.4 mg/dL (0.7-1.2); ESTIMATED GFR > 60; GLUCOSE 121 mg/dL (70-104); POTASSIUM 4.7 mmol/L (3.5-5.1); SODIUM 141 mmol/L (136-145); TCO2 39 mmol/L (25-35)
[2019-12-19] MEDS: ZITHROMAX 500 MG/NS 500 MG/250 ML IVPB IV SCH (07:57)
[2019-12-19] MEDS: FOLIC ACID PO SCH (08:02)
[2019-12-19] MEDS: LASIX IV SCH (08:03)
[2019-12-19] MEDS: COLACE PO SCH ×2 (08:07→21:01)
[2019-12-19] MEDS: MIRALAX PO SCH (08:07)
[2019-12-19 08:55] LABS: BANDS 4 % (0-1); HYPOCHROM 2+; LYMPHS 8 % (21-51); MONO 2 % (1-9); SEGS 86 % (42-75)
--- NOTE | 2019-12-19 10:01 | PROVIDER PROGRESS NOTE ---
Progress Note Dr. Escamilla Progress Note/Pulmonary and or critical care We appreciated progress of care, Complications, change in diagnosis, and instructions to patient. Subjective: We note the level of consciousness, bed (chair) position, family presence (if any), level of lethargy, feeling of symptoms, and changes from baseline condition/symptom. The patient is awake, lying in bed with no acute distress noted. He told me that he received his 2nd chemotherapy yesterday. He has been on BiPAP for a long time and currently the FiO2 is on 50% although this morning ABG shows slightly low pO2. He is still on morphine drip. at the bedside. Objective: Vital Signs: We reviewed EMR current values for Pulse rate, Blood pressure, Pulse rate, respiratory rate and Pulse oximetry. Also noted other values and trends if present (e.g. I/O, CVP). T 98.7 (No fever in last 24 hours), MO 81, RR 16, BP 123/65 and SaO2 97% on BiPAP 18/8 50%. I/O -294 ml Physical Examination: General: Very pleasant. Lying in bed with no acute distress noted. HEENT: Normocephalic. Trachea midline. Mucosa pink and moist. Respiratory: Even and unlabored. Symmetrical excursion. Inspiratory crackles bilaterally. CVS: S1 and S2 appreciated. Abdomen: Soft. Nontender. Nondistended. Bowel sounds present. Extremities: No pedal edema. Neuro: Awake. Alert. Follows commands. Labs and Radiology: Reviewed available labs and radiology values available at time of EMR review. Laboratory Results 12/18/19 12/19/19 12/19/19 19:48 04:05 04:05 WBC 5.67 RBC 2.51 L Hgb 7.6 L Hct 26.3 L MCV 104.8 H MCH 30.3 MCHC 28.9 L RDW Std Deviation 13.2 Plt Count 276 D MPV 10.9 H Immature Gran % (Auto) 0.0 Neut % (Auto) 86.0 H Lymph % (Auto) 7.8 L [place] % (Auto) 6.2 Eos % (Auto) 0.0 Baso % (Auto) 0.0 Immature Gran # (Auto) 0.00 Neut # (Auto) 4.88 Lymph # (Auto) 0.44 L [place] # (Auto) 0.35 Eos # (Auto) 0.00 Baso # (Auto) 0.00 Segmented Neutrophils 86 H Band Neutrophils 4 H Lymphocytes 8 L Monocytes 2 Hypochromia 2+ Specimen Type Sample Site pH pCO2 pO2 HCO3 Base Excess Oxyhemoglobin ABG O2 Sat (Calculated) ABG O2 Saturation ABG Carboxyhemoglobin ABG Methemoglobin [place] Test A-a O2 Difference Total Hemoglobin Lactate Blood Gas Modality Vent Mode FiO2 % Inspiratory BiPAP Expiratory BiPAP Sodium 141 Potassium 4.7 Chloride 94 L Carbon Dioxide 39 H Anion Gap 8 BUN 22 Creatinine 0.4 L Estimated GFR/1.73 m2 > 60 BUN/Creatinine Ratio 55 Glucose 121 H Calculated Osmolality 286 Calcium 8.4 L Random Vancomycin 21.70 12/19/19 04:41 WBC RBC Hgb Hct MCV MCH MCHC RDW Std Deviation Plt Count MPV Immature Gran % (Auto) Neut % (Auto) Lymph % (Auto) [place] % (Auto) Eos % (Auto) Baso % (Auto) Immature Gran # (Auto) Neut # (Auto) Lymph # (Auto) [place] # (Auto) Eos # (Auto) Baso # (Auto) Segmented Neutrophils Band Neutrophils Lymphocytes Monocytes Hypochromia Specimen Type ARTERIAL Sample Site R RADIAL pH 7.42 pCO2 76 H* pO2 59 L HCO3 42.0 H Base Excess 22.0 H Oxyhemoglobin 92.3 L ABG O2 Sat (Calculated) 10.7 L ABG O2 Saturation 95.4 ABG Carboxyhemoglobin 2.50 ABG Methemoglobin 0.7 [place] Test YES A-a O2 Difference 203.0 Total Hemoglobin 8.2 L Lactate 1.70 Blood Gas Modality BI PAP Vent Mode BIPAP FiO2 % 50.0 Inspiratory BiPAP 18.0 Expiratory BiPAP 8.0 Sodium Potassium Chloride Carbon Dioxide Anion Gap BUN Creatinine Estimated GFR/1.73 m2 BUN/Creatinine Ratio Glucose Calculated Osmolality Calcium Random Vancomycin Assessment: Acute on chronic hypoxemic hypercapnic respiratory failure. Multifocal non-small cell lung cancer with lymphangitic spread, status post 2nd chemotherapy infusion yesterday. Pneumonitis secondary to chemotherapy with possible superimposed bacterial pneumonia. Procalcitonin on 12/15/19 elevated. Sputum culture on 12/10/19 was negative. Tobacco abuse. Plan: Continue current treatment and supportive care per admitting and other teams on the case. Cycle BiPAP and supplemental oxygen as needed. Will try HFNC as tolerated. Diuresis. Bronchodilators. IV Solu-Medrol. Antibiotic including Azithromycin, Meropenem and vancomycin. Appropriate DVT and GI prophylaxis Input was appreciated from Admitting MD and other teams on the case. Evaluation time in minutes: 32 minutes.
--- NOTE | 2019-12-19 10:37 | Diag Imaging Result Doc PS360 ---
EXAM: CHEST-1 VIEW INDICATION: SOB TECHNIQUE: One view COMPARISON: 12/18/2019 FINDINGS: The right PICC line is in stable position. Dense infiltrates seen throughout both lungs are approximately stable. No new consolidation is identified. Cardiac silhouette is stable. IMPRESSION: Stable chest. Electronically signed by Favio Hoang 12/19/2019 10:35 AM
[2019-12-19] MEDS: VANCOMYCIN 1,400 MG in NS 250 ML IV SCH ×2 (12:23→23:16)
[2019-12-19] MEDS: GRANIX SUBQ SCH (12:23)
--- NOTE | 2019-12-19 14:00 | PROGRESS NOTE ---
DATE: 12/19/2019 SUBJECTIVE: Patient has no major complaints. OBJECTIVE: Blood pressure is 119/71, heart rate 92, respiratory rate 19, temperature 97.7 degrees, 94% on 50.Cardiovascular: Regular rate and rhythm. Pulmonary: Bilateral breath sounds clear to auscultation. GI: Was soft, nontender, nondistended. Bowel sounds are positive. White count 5, hemoglobin and hematocrit 7 and 26, platelets of 276,000, pH 7.42, pCO2 76, PaO2 59, BUN and creatinine is 22 and 0.4, 94, and 39. PROBLEM LIST: 1. Acute on chronic hypoxic and hypercapnic respiratory failure. He has been switched to high- flow oxygen. He looks much better today. He is down to 60% on his FiO2. He has no increased work of breathing. He seems to be doing really well. 2. Pneumonia. He is on day 6 of vancomycin and meropenem. Dr. Mejia is following. 3. Chronic obstructive pulmonary disease with exacerbation. He is on steroids, nebs, reluctant to really wean anything at this point until he is improving. 4. Non-small cell lung cancer. Apparently he got his treatment yesterday. I am not sure if it was early or I misinterpreted the date, but it was not due until the . I do not see Heme- Onc note, but it will give him much more chance of recovery, so we will continue to follow closely. cc: Terrell Gary MD
[2019-12-19] MEDS: MORPHINE IV SCH (16:20)
[2019-12-19] MEDS: NS IV SCH (16:20)
[2019-12-20] MEDS: MERREM 2 GM in NS 100 ML IV SCH ×2 (03:12→11:12)
[2019-12-20] MEDS: XOPENEX NEB INH SCH ×6 (03:40→23:30)
[2019-12-20] MEDS: ATROVENT NEB INH SCH ×6 (03:40→23:30)
[2019-12-20 04:30] LABS: ALLEN TEST YES; BE 21.7 mmoll (-3.0-3.0); BLOOD TYPE ARTERIAL; HCO3-(ACT) 41.8 mmoll (20.0-26.0); METHB 1.1 % (0.0-1.5); O2(CT) 11.5 mL/dL (15.0-23.0); O2HB 92.3 % (95.0-99.0); PO2(98.6) 66 mmHg (60-100); SAMPLE BLOOD; SAO2 95.5 % (95.0-100.0); THB 8.8 g/dL (11.5-17.4); pH(98.6) 7.41 (7.35-7.45)
[2019-12-20 04:32] LABS: MODALITY HIGH FLOW NASAL CAN; PCO2(98.6) 78 mmHg (35-45)
[2019-12-20] MEDS: LOVENOX SUBQ SCH (06:25)
[2019-12-20] MEDS: SOLU-MEDROL IV SCH ×3 (06:25→20:29)
[2019-12-20] MEDS: PROTONIX PO SCH (06:25)
[2019-12-20 07:04] LABS: AGAP 7; BUN 24 mg/dL (8-22); CALCIUM 8.1 mg/dL (8.8-10.2); CHLORIDE 97 mmol/L (98-107); COSMO 290; CREATININE 0.5 mg/dL (0.7-1.2); ESTIMATED GFR > 60; GLUCOSE 110 mg/dL (70-104); POTASSIUM 4.3 mmol/L (3.5-5.1); SODIUM 143 mmol/L (136-145); TCO2 39 mmol/L (25-35)
[2019-12-20 07:36] LABS: HEMATOCRIT 27.8 % (42.0-52.0); IMM GRAN# 0.07 X1000 (0.0-0.04); IMM GRAN% 0.8 % (0.0-0.5); LYMPH# 0.54 X1000 (1.2-3.4); LYMPH% 5.9 % (20.5-51.1); MCH 30.5 PG (27-31); MCHC 28.8 g/dL (33-37); MCV 106.1 FL (81-99); MONO# 0.47 X1000 (0.11-0.59); MONO% 5.1 % (1.7-9.3); MPV 11.3 FL (7.4-10.4); NEUT% 88.2 % (42.2-75.2); PLT 375 X1000 (130-400); RBC 2.62 XMIL (4.7-6.1); RDW 13.3 % (11.5-14.5); WBC 9.18 X1000 (4.8-10.8)
[2019-12-20] MEDS: LASIX IV SCH (08:04)
[2019-12-20] MEDS: FOLIC ACID PO SCH (08:05)
[2019-12-20] MEDS: COLACE PO SCH ×3 (08:05→20:31)
[2019-12-20] MEDS: ZITHROMAX 500 MG/NS 500 MG/250 ML IVPB IV SCH (08:05)
[2019-12-20] MEDS: GRANIX SUBQ SCH (08:10)
[2019-12-20] MEDS: MIRALAX PO SCH (08:10)
--- NOTE | 2019-12-20 08:15 | Diag Imaging Result Doc PS360 ---
EXAM: CHEST-1 VIEW INDICATION: SOB TECHNIQUE: One view COMPARISON: 12/19/2019 FINDINGS: Right PICC line is in stable position. Dense airspace infiltrates seen throughout both lungs are essentially stable. No new consolidation is identified. Cardiac silhouette is stable. IMPRESSION: Stable chest. Electronically signed by Favio Hoang 12/20/2019 8:13 AM
--- NOTE | 2019-12-20 09:26 | INFECTIOUS DISEASE PROGRESS NO ---
DATE: 12/20/2019 PRESENT ILLNESS: The patient has bilateral interstitial lung disease complicated by superimposed pneumonia. MEDICATIONS: This is day 6 of treatment with azithromycin, and day 10 of treatment with meropenem and vancomycin. PHYSICAL EXAMINATION: Vital Signs: Temperature is 98.3 degrees, pulse 104, respirations 23, blood pressure 126/80. General: This is a somewhat ill-appearing, middle-aged male. He is on oxygen by nasal cannula. HEENT: He can hear my spoken words and see near objects. He does not have any white coating of his tongue. Neck: No pain with movement. Lungs: Clear to auscultation. Cardiovascular: Heart rate is regular. Abdomen: Soft and nontender. Neurologic: The patient is alert. He can move his extremities. He does not have a tremor. IMAGING AND LABORATORY DATA: Chest x-ray shows stable bilateral dense infiltrates. CBC shows a white count of 9180, hemoglobin 8, platelet count 375,000. The patient's creatinine is 0.5, with a GFR of greater than 60. The patient's blood gases show a pH of 7.41, a PO2 of 66, and a pCO2 of 78. Creatinine is 0.5. GFR is greater than 60. ASSESSMENT AND PLAN: The patient has interstitial lung disease with superimposed bacterial pneumonia. I plan to continue vancomycin for 4 more days, and azithromycin and meropenem for 8 more days. COMORBIDITIES: Interstitial lung disease, cigarette smoking, and emphysema. cc: Roshan Mejia MD
--- NOTE | 2019-12-20 09:30 | PROVIDER PROGRESS NOTE ---
Progress Note Dr. Escamilla Progress Note/Pulmonary and or critical care We appreciated progress of care, Complications, change in diagnosis, and instructions to patient. Subjective: We note the level of consciousness, bed (chair) position, family presence (if any), level of lethargy, feeling of symptoms, and changes from baseline condition/symptom. The patient is awake, lying in bed having his breakfast. He is on HFNC 55% at this time. He was put on BiPAP temporally this am secondary to hypercapnia. He h as no cough. He states he is feeling great. He has no complaint at this time. Objective: Vital Signs: We reviewed EMR current values for Pulse rate, Blood pressure, Pulse rate, respiratory rate and Pulse oximetry. Also noted other values and trends if present (e.g. I/O, CVP). T 98.3 (No fever in last 24 hours), SC 104, RR 23, BP 126/80 and SaO2 95% on HFNC 55%. I/O -200 ml Physical Examination: General: Very pleasant. Lying in bed with no acute distress noted. HEENT: Normocephalic. Trachea midline. Mucosa pink and moist. Respiratory: Even and unlabored. Symmetrical excursion. Inspiratory crackles bilaterally. CVS: S1 and S2 appreciated. Abdomen: Soft. Nontender. Nondistended. Bowel sounds present. Extremities: No pedal edema. Neuro: Awake. Alert. Follows commands. Labs and Radiology: Reviewed available labs and radiology values available at time of EMR review. Laboratory Results 12/20/19 12/20/19 12/20/19 04:13 04:13 04:20 WBC 9.18 RBC 2.62 L Hgb 8.0 L Hct 27.8 L MCV 106.1 H MCH 30.5 MCHC 28.8 L RDW Std Deviation 13.3 Plt Count 375 D MPV 11.3 H Immature Gran % (Auto) 0.8 H Neut % (Auto) 88.2 H Lymph % (Auto) 5.9 L [place] % (Auto) 5.1 Eos % (Auto) 0.0 Baso % (Auto) 0.0 Immature Gran # (Auto) 0.07 H Neut # (Auto) 8.10 H Lymph # (Auto) 0.54 L [place] # (Auto) 0.47 Eos # (Auto) 0.00 Baso # (Auto) 0.00 Specimen Type ARTERIAL Sample Site R RADIAL pH 7.41 pCO2 78 H* pO2 66 HCO3 41.8 H Base Excess 21.7 H Oxyhemoglobin 92.3 L ABG O2 Sat (Calculated) 11.5 L ABG O2 Saturation 95.5 ABG Carboxyhemoglobin 2.40 ABG Methemoglobin 1.1 Dillan Test YES A-a O2 Difference 321.0 Total Hemoglobin 8.8 L Lactate 1.90 Liter Flow 50.0 Blood Gas Modality HIGH FLOW NASAL CAN FiO2 % 68.0 Sodium 143 Potassium 4.3 Chloride 97 L Carbon Dioxide 39 H Anion Gap 7 BUN 24 H Creatinine 0.5 L Estimated GFR/1.73 m2 > 60 BUN/Creatinine Ratio 48 Glucose 110 H Calculated Osmolality 290 Calcium 8.1 L Assessment: Acute on chronic hypoxemic hypercapnic respiratory failure. Multifocal non-small cell lung cancer with lymphangitic spread, status post 2nd chemotherapy infusion on 12/18/19. Pneumonitis secondary to chemotherapy with possible superimposed bacterial pneumonia. Procalcitonin on 12/15/19 elevated. Sputum culture on 12/10/19 was negative. Tobacco abuse. Plan: Continue current treatment and supportive care per admitting and other teams on the case. Cycle BiPAP and supplemental oxygen as needed. Diuresis. Bronchodilators. IV Solu-Medrol. Antibiotic including Azithromycin, Meropenem and vancomycin. Appropriate DVT and GI prophylaxis Input was appreciated from Admitting MD and other teams on the case. Evaluation time in minutes: 31 minutes.
[2019-12-20] MEDS: VANCOMYCIN 1,400 MG in NS 250 ML IV SCH ×2 (11:12→22:21)
--- NOTE | 2019-12-20 14:20 | PROGRESS NOTE ---
DATE: 12/20/2019 SUBJECTIVE: The patient has no major complaints. OBJECTIVE: Vital Signs: Blood pressure is 123/78, heart rate 105, respiratory rate 25, temperature 99.1 degrees, saturating 95% on 55 high-flow. Cardiovascular: Regular rate and rhythm. Pulmonary: Bilateral breath sounds. Clear to auscultation. GI: Soft, nontender, nondistended. Bowel sounds are positive. LABORATORY DATA: White count is 9, hemoglobin and hematocrit 8 and 27, platelets 375,000. PH 7.41, pCO2 of 78, PaO2 of 66. BUN and creatinine are 24 and 0.5. PROBLEM LIST: 1. Acute on chronic hypoxic hypercapnic respiratory failure. He is on high-flow oxygen. It is down to 55%. To me, his chest x-ray looks improved, less interstitial infiltrates, so we shall see. 2. Pneumonia. He is on vancomycin and meropenem per Dr. Mejia. He says he will give him 4 more days of vancomycin and 8 more days of azithromycin and meropenem. 3. Chronic obstructive pulmonary disease exacerbation. He is on steroids. Again, we could probably start weaning those, but I am going to let Pulmonary re-evaluate him tomorrow and decide about that. 4. Active non-small cell lung cancer, poorly differentiated with rapid progression. He has had 2 doses of chemotherapy now. He seems to be doing better. Prognosis is still guarded. cc: Terrell Gary MD
[2019-12-20] MEDS: NS IV SCH (16:36)
[2019-12-20] MEDS: MORPHINE IV SCH (16:36)
[2019-12-21] MEDS: MERREM 2 GM in NS 100 ML IV SCH ×4 (02:10→20:00)
[2019-12-21] MEDS: XOPENEX NEB INH SCH ×6 (03:35→23:17)
[2019-12-21] MEDS: ATROVENT NEB INH SCH ×6 (03:35→23:17)
[2019-12-21 05:33] LABS: ALLEN TEST YES; BE 20.3 mmoll (-3.0-3.0); BLOOD TYPE ARTERIAL; HCO3-(ACT) 40.8 mmoll (20.0-26.0); O2(CT) 11.7 mL/dL (15.0-23.0); PO2(98.6) 102 mmHg (60-100); SAMPLE BLOOD; SAO2 99.3 % (95.0-100.0); THB 8.5 g/dL (11.5-17.4); pH(98.6) 7.48 (7.35-7.45)
[2019-12-21 05:34] LABS: MODALITY BI PAP; PCO2(98.6) 62 mmHg (35-45)
[2019-12-21 06:09] LABS: AGAP 8; BUN 22 mg/dL (8-22); CALCIUM 8.5 mg/dL (8.8-10.2); CHLORIDE 99 mmol/L (98-107); COSMO 294; CREATININE 0.6 mg/dL (0.7-1.2); ESTIMATED GFR > 60; GLUCOSE 170 mg/dL (70-104); POTASSIUM 4.5 mmol/L (3.5-5.1); SODIUM 144 mmol/L (136-145); TCO2 37 mmol/L (25-35)
[2019-12-21] MEDS: PROTONIX PO SCH (06:14)
[2019-12-21] MEDS: LOVENOX SUBQ SCH (06:14)
[2019-12-21] MEDS: SOLU-MEDROL IV SCH ×3 (06:14→20:22)
--- NOTE | 2019-12-21 06:35 | Diag Imaging Result Doc PS360 ---
EXAM: CHEST-1 VIEW HISTORY: SOB TECHNIQUE: Single view COMPARISON: 12/20/2019 FINDINGS: There are dense bilateral infiltrates. These may be slightly improved. No cardiomegaly. Tiny left effusion. No change in the right-sided PICC line. IMPRESSION: There appears to be slight improvement in the dense bilateral infiltrates. Electronically signed by Tristan Mason 12/21/2019 6:33 AM
[2019-12-21 06:56] LABS: HEMATOCRIT 29.1 % (42.0-52.0); HEMOGLOBIN 8.2 g/dL (14.0-18.0); IMM GRAN# 0.16 X1000 (0.0-0.04); IMM GRAN% 1.7 % (0.0-0.5); LYMPH% 4.3 % (20.5-51.1); MCH 29.9 PG (27-31); MCHC 28.2 g/dL (33-37); MCV 106.2 FL (81-99); MONO# 0.12 X1000 (0.11-0.59); MONO% 1.3 % (1.7-9.3); MPV 11.1 FL (7.4-10.4); NEUT# 8.57 X1000 (1.4-6.5); NEUT% 92.7 % (42.2-75.2); PLT 458 X1000 (130-400); RBC 2.74 XMIL (4.7-6.1); RDW 13.7 % (11.5-14.5); WBC 9.25 X1000 (4.8-10.8)
[2019-12-21 07:37] LABS: BANDS 12 % (0-1); HYPOCHROM 1+; LYMPHS 2 % (21-51); SEGS 86 % (42-75)
[2019-12-21] MEDS: MIRALAX PO SCH (08:31)
[2019-12-21] MEDS: LASIX IV SCH (08:31)
[2019-12-21] MEDS: COLACE PO SCH ×2 (08:31→20:22)
[2019-12-21] MEDS: FOLIC ACID PO SCH (08:31)
--- NOTE | 2019-12-21 08:42 | INFECTIOUS DISEASE PROGRESS NO ---
DATE: 12/21/2019 PRESENT ILLNESS: The patient has bilateral interstitial lung disease complicated by superimposed pneumonia. MEDICATIONS: This is the 7th day of treatment with azithromycin and the 11th day of treatment with meropenem and vancomycin. PHYSICAL EXAMINATION: Vital Signs: Temperature is 99 degrees, pulse 91, respirations 15, blood pressure is 130/70. General: This is a somewhat ill-appearing, middle-aged male. He is still getting oxygen through a nasal cannula. Head, Eyes, Ears, Nose, and Throat: He can hear my spoken words and see near objects. He does not have any white patches in his mouth. Neck: No stiffness. Lungs: Clear to auscultation. Cardiovascular: Heart rate is regular. Abdomen: Soft and nontender. Neurologic: The patient is alert. He can move his extremities. There is no tremor. LAB AND RADIOLOGY: Chest x-ray shows improvement in the bilateral dense infiltrates. CBC shows a white count of 9250, hemoglobin 8.2, platelet count 458,000. Arterial blood gases show a pH of 7.48, a PO2 of 102, pCO2 of 62. Creatinine is 0.6. GFR is greater than 60. ASSESSMENT AND PLAN: The patient has interstitial lung disease complicated by bacterial pneumonia. I plan for 3 more days of vancomycin and 7 more days for meropenem and azithromycin. COMORBIDITIES: Interstitial lung disease, cigarette smoking, and emphysema. cc: Roshan Mejia MD
[2019-12-21] MEDS ORDERED: ZITHROMAX PO SCH (09:00)
[2019-12-21] MEDS: VANCOMYCIN 1,400 MG in NS 250 ML IV SCH ×2 (10:50→23:21)
--- NOTE | 2019-12-21 11:45 | PROGRESS NOTE ---
DATE: 12/21/2019 SUBJECTIVE: The patient has no major complaints. OBJECTIVE: Vital Signs: Blood pressure is 124/71, heart rate of 106, respiratory rate of 20, temperature 99.3 degrees, satting 95% on 60%. Cardiovascular: Regular rate and rhythm. Pulmonary: Bilateral breath sounds. Clear to auscultation. GI: Soft, nontender, nondistended. Bowel sounds are positive. LABS: White count is 9, hemoglobin and hematocrit 8 and 29, platelets of 458. A pH 7.48, pCO2 62, PaO2 102. Basic was normal. PROBLEM LIST: 1. Acute on chronic hypoxic respiratory failure. He is on high-flow oxygen. Chest x-ray looks improved. We will continue supportive treatment. 2. Pneumonia. He is on vancomycin; 3 more days on the vancomycin, 7 more days on the azithromycin and meropenem. 3. Chronic obstructive pulmonary disease exacerbation. He is on steroids. Pulmonary is following. 4. Active non-small cell lung cancer, status post 2 doses of chemotherapy. Oncology is still following. Appreciate their aggressive input. We will follow. cc: Terrell Gary MD
[2019-12-21] MEDS: GRANIX SUBQ SCH (13:24)
--- NOTE | 2019-12-21 13:27 | PULMONOLOGY PROGRESS NOTE ---
DATE: 12/21/2019 SUBJECTIVE: The patient feels significantly better. He underwent a second chemotherapy dose on 12/18/2019. He reports his breathing has improved, and his oxygen requirements have decreased. OBJECTIVE: Vital Signs: The patient has been afebrile for the last 24 hours. Blood pressure 118/70, heart rate 93, respiratory rate 16, oxygen saturation 97% on 60% FiO2. HEENT: Pupils are equal and reactive. Oropharynx appears clear. Neck: Supple. Chest: Crackles bilaterally. Cardiac: S1, S2. Abdomen: Soft. Extremities: Without edema. IMAGING AND LABORATORY DATA: Arterial blood gas on 50% BiPAP shows pH of 7.48, pCO2 of 62, pO2 of 102. Chest x-ray reveals slight decrease in bilateral infiltrates. IMPRESSION: A 64-year-old with: 1. 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 2. Hypoxemic respiratory failure. 3. Status post second dose of chemotherapy. DISCUSSION: A 64-year-old with problems outlined above. With his second dose of chemotherapy and reinstitution of steroids, he looks significantly better than he did 4 days ago. PLAN: 1. Continue current steroids. 2. BiPAP and high-flow oxygen as needed. 3. Consider transfer to the floor if he continues to improve. cc: Jose Ignacio MD
[2019-12-21] MEDS: NS IV SCH (16:54)
[2019-12-21] MEDS: MORPHINE IV SCH (16:54)
[2019-12-22] MEDS: MERREM 2 GM in NS 100 ML IV SCH (03:17)
[2019-12-22] MEDS: ATROVENT NEB INH SCH ×5 (03:48→21:45)
[2019-12-22] MEDS: XOPENEX NEB INH SCH ×5 (03:48→21:45)
[2019-12-22 05:44] LABS: ALLEN TEST YES; BE 15.4 mmoll (-3.0-3.0); BLOOD TYPE ARTERIAL; HCO3-(ACT) 36.8 mmoll (20.0-26.0); PO2(98.6) 55 mmHg (60-100); SAMPLE BLOOD; pH(98.6) 7.48 (7.35-7.45)
[2019-12-22 05:46] LABS: PCO2(98.6) 56 mmHg (35-45)
[2019-12-22 05:47] LABS: MODALITY BI PAP
[2019-12-22] MEDS: SOLU-MEDROL IV SCH ×3 (05:50→20:24)
[2019-12-22] MEDS: LOVENOX SUBQ SCH (05:50)
[2019-12-22] MEDS: PROTONIX PO SCH (06:06)
[2019-12-22 06:47] LABS: HEMATOCRIT 26.7 % (42.0-52.0); HEMOGLOBIN 7.6 g/dL (14.0-18.0); IMM GRAN# 0.57 X1000 (0.0-0.04); IMM GRAN% 8.6 % (0.0-0.5); LYMPH# 0.54 X1000 (1.2-3.4); LYMPH% 8.1 % (20.5-51.1); MCH 29.9 PG (27-31); MCHC 28.5 g/dL (33-37); MCV 105.1 FL (81-99); MONO% 1.5 % (1.7-9.3); MPV 11.2 FL (7.4-10.4); NEUT# 5.45 X1000 (1.4-6.5); NEUT% 81.8 % (42.2-75.2); PLT 471 X1000 (130-400); RBC 2.54 XMIL (4.7-6.1); RDW 13.8 % (11.5-14.5); WBC 6.66 X1000 (4.8-10.8)
--- NOTE | 2019-12-22 07:38 | Diag Imaging Result Doc PS360 ---
EXAM: CHEST-1 VIEW INDICATION: SOB TECHNIQUE: One view COMPARISON: 12/21/2019 FINDINGS: The right PICC line is in stable position. Dense patchy infiltrates throughout the right lung and at the left mid and lower lung zone are approximately stable. No new consolidation is identified. Cardiac silhouette is stable. IMPRESSION: Stable chest. Electronically signed by Favio Hoang 12/22/2019 7:36 AM
[2019-12-22 07:56] LABS: AGAP 4; BUN 25 mg/dL (8-22); CHLORIDE 97 mmol/L (98-107); COSMO 285; CREATININE 0.5 mg/dL (0.7-1.2); ESTIMATED GFR > 60; GLUCOSE 113 mg/dL (70-104); MAGNESIUM 1.8 mg/dL (1.5-2.7); PHOSPHORUS 1.8 mg/dL (2.7-4.5); POTASSIUM 4.2 mmol/L (3.5-5.1); SODIUM 140 mmol/L (136-145); TCO2 39 mmol/L (25-35)
--- NOTE | 2019-12-22 09:07 | INFECTIOUS DISEASE PROGRESS NO ---
DATE: 12/22/2019 The patient's lung biopsy shows adenocarcinoma. I am discontinuing his current antibiotics and I am signing off of his case. cc: Roshan Mejia MD
[2019-12-22] MEDS: MIRALAX PO SCH (09:09)
[2019-12-22] MEDS: COLACE PO SCH ×2 (09:09→20:24)
[2019-12-22] MEDS: LASIX IV SCH (09:09)
[2019-12-22] MEDS: FOLIC ACID PO SCH (09:09)
[2019-12-22] MEDS ORDERED: CATHFLO IV ONE (09:58)
[2019-12-22] MEDS ORDERED: STERILE WATER INJ. INJ ONE (09:58)
[2019-12-22] MEDS: GRANIX SUBQ SCH (10:00)
[2019-12-22] MEDS ORDERED: SODIUM PHOSPHATE 40 MEQ in NS 250 ML IV ONE (12:18)
[2019-12-22] MEDS ORDERED: MORPHINE IV PRN (12:23)
--- NOTE | 2019-12-22 12:51 | PROGRESS NOTE ---
DATE: 12/22/2019 SUBJECTIVE: The patient has no major complaints. OBJECTIVE: Blood pressure is 140/70, heart rate of 91, respiratory rate of 14, temperature of 99.2, 96% on 60%. Cardiovascular: Regular rate and rhythm. Pulmonary: Bilateral breath sounds clear to auscultation. GI: Soft, nontender, nondistended. Bowel sounds were positive. Laboratory Data: White count 6, hemoglobin and hematocrit 7.6 and 26, platelets 471,000. PH 7.48, pCO2 of 56, PaO2 of 55. BUN and creatinine of 25 and 0.5, phosphorus of 1.8. PROBLEM LIST: 1. Acute on chronic respiratory failure, still on high-flow oxygen but improving. His chest x- ray is pretty stable but do not expect overnight improvement from that standpoint, but he is on maximal therapy. He seems to be doing okay. 2. Pneumonia. He is on vancomycin for 2 more days and 6 more days on the azithromycin and the meropenem per Dr. Mejia. 3. Chronic obstructive pulmonary disease exacerbation. He is on steroids, nebulizers. Pulmonary is following. We are not backing off on anything at this point. 4. Non-small cell lung cancer. He is status post 2 treatments so we will continue to follow. Now, looking at Dr. Mejia's note, he is stopping his antibiotics because the pathology from the showed cancer. I am not sure he does not have concurrent pneumonia but will follow and see how he does. Interestingly enough, his x-ray really does not look that much different when he came in on the 8th than it does now, maybe a little better so this may all be carcinomatosis, so we will see. At this point, he has no clinical signs of cancer. No white count. No fever. Prognosis is good. It is improved. He is looking forward to going to the floor, so we are going to go ahead and send him to the stepdown. 5. He is hypophosphatemic so we will continue phosphate supplementation and monitor. cc: Terrell Gary MD
[2019-12-22] MEDS ORDERED: TYLENOL PO PRN (15:15)
[2019-12-22] MEDS ORDERED: DUONEB (A & A) INH PRN (15:19)
[2019-12-22] MEDS ORDERED: FOLIC ACID 1 MG in NS 50 ML IV SCH (16:00)
[2019-12-22] MEDS ORDERED: ZOFRAN IV PRN (16:10)
--- NOTE | 2019-12-22 21:50 | PULMONOLOGY PROGRESS NOTE ---
DATE: 12/22/2019 SUBJECTIVE: The patient is awake, alert, and conversant. He reports his breathing continues to improve. He is no longer short of breath. He would like to transition out of the ICU. OBJECTIVE: Vital Signs: The patient has been afebrile for the last 24 hours. Blood pressure 141/74, heart rate 106, respiratory rate 28, oxygen saturation 95% on 40% FiO2. HEENT: Pupils are equal and reactive. Oropharynx appears clear. Neck: Supple. Chest: Crackles bilaterally. Cardiac: S1-S2, increased rate. Abdomen: Soft. Extremities: Without edema. LABORATORY AND DIAGNOSTIC DATA: Arterial blood gas reveals a pH of 7.48, pCO2 of 56, PO2 of 55 on 50% FiO2. White blood count 6.66, hemoglobin 7.6, platelet count 471,000. Chest x-ray reveals patchy bilateral infiltrates. These have been stable over the last 24 hours, but clearly have improved over the last several days. IMPRESSION: A 64-year-old with: 1. 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 2. Hypoxemic respiratory failure. 3. Clinical improvement status post second dose of chemotherapy. PLAN: 1. Anticipate transfer to the floor today. 2. Continue current steroid dosing. We will consider transitioning to oral steroids. 3. Cycle BiPAP and high-flow oxygen. 4. Prognosis is guarded, but clearly improved over the last several days. cc: Jose Ignacio MD
[2019-12-23] MEDS: LOVENOX SUBQ SCH (05:49)
[2019-12-23] MEDS: SOLU-MEDROL IV SCH ×3 (05:49→21:00)
[2019-12-23] MEDS: PROTONIX PO SCH (06:20)
[2019-12-23 06:58] LABS: EOS# 0.01 X1000 (0.0-0.7); EOS% 0.3 % (0.0-10.0); HEMATOCRIT 31.8 % (42.0-52.0); HEMOGLOBIN 9.5 g/dL (14.0-18.0); IMM GRAN# 0.57 X1000 (0.0-0.04); IMM GRAN% 19.5 % (0.0-0.5); LYMPH# 0.56 X1000 (1.2-3.4); LYMPH% 19.2 % (20.5-51.1); MCH 30.9 PG (27-31); MCHC 29.9 g/dL (33-37); MCV 103.6 FL (81-99); MONO# 0.02 X1000 (0.11-0.59); MONO% 0.7 % (1.7-9.3); MPV 10.7 FL (7.4-10.4); NEUT# 1.76 X1000 (1.4-6.5); NEUT% 60.3 % (42.2-75.2); PLT 385 X1000 (130-400); RBC 3.07 XMIL (4.7-6.1); WBC 2.92 X1000 (4.8-10.8)
[2019-12-23 07:14] LABS: AGAP 4; BUN 26 mg/dL (8-22); CALCIUM 7.9 mg/dL (8.8-10.2); CHLORIDE 97 mmol/L (98-107); COSMO 286; CREATININE 0.5 mg/dL (0.7-1.2); ESTIMATED GFR > 60; GLUCOSE 95 mg/dL (70-104); POTASSIUM 4.3 mmol/L (3.5-5.1); SODIUM 141 mmol/L (136-145); TCO2 40 mmol/L (25-35)
--- NOTE | 2019-12-23 07:16 | PROGRESS NOTE ---
DATE: 12/23/2019 SUBJECTIVE: Patient reports breathing better. He is in a good mood. He does not report any complaints. He reports not being short of breath. The nurse reports that he is able to stand up. OBJECTIVE: Vital Signs: Temperature 98.8 degrees, heart rate 87, respiratory 17, blood pressure 106/53, O2 saturation 99% on BiPAP of FiO2 40%. General Examination: This is a chronically ill- looking 64-year-old male, lying in bed, in no acute distress. Cardiovascular: S1, S2 heard. No murmurs, gallops, or rubs. Regular rate and rhythm. Respiratory: Minimal coarse breath sounds noted in both pulmonary bases, but overall bilateral breath sounds are clear to auscultation. Patient is not using any accessory muscles or having work of breathing. Abdomen: Soft, nontender to palpation. Bowel sounds present. No organomegaly. Extremities: No clubbing, cyanosis, or edema. Peripheral pulses present in both legs. Neurological: Patient is alert and oriented x3. Moves all 4 extremities. LABORATORY DATA: Those are still pending at time of dictation. Hemoglobin 7.6 from yesterday. ASSESSMENT AND PLAN: 1. Acute on chronic respiratory failure. Chest x-ray from yesterday shows pretty much stable chest. He reports breathing okay. He continues on high-flow nasal cannula and BiPAP at night. This patient is stable. We will continue to monitor. Pulmonary following this patient. We will follow recommendations. 1. Pneumonia. The patient has been on antibiotics as per Dr. Mejia' recommendation but he thinks that the findings are related to the lung cancer this patient has, so all antibiotics have been stopped and he has signed off from the case. 2. Chronic obstructive pulmonary disease exacerbation. We will continue with IV steroids in this case, it is Solu-Medrol 60 mg IV q.8 h, and nebulizers. Pulmonary following this patient. 3. 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 Patient has received his 2nd cycle of chemotherapy. Apparently this patient is feeling better. So, at this point, we will continue to follow recommendations from Oncology. DISPOSITION: We are going to transfer this patient to [facility] unit, Acute has no beds now. In the meantime we will continue to monitor. cc: Imtiaz Taylor MD
[2019-12-23] MEDS ORDERED: NEUPOGEN SUBQ SCH (09:00)
[2019-12-23] MEDS: XOPENEX NEB INH SCH ×3 (09:45→21:40)
[2019-12-23] MEDS: ATROVENT NEB INH SCH ×3 (09:46→21:40)
[2019-12-23] MEDS: LASIX IV SCH (10:00)
[2019-12-23] MEDS ORDERED: GRANIX SUBQ SCH (10:00)
[2019-12-23] MEDS: COLACE PO SCH ×2 (10:00→21:00)
[2019-12-23] MEDS: FOLIC ACID PO SCH (10:00)
[2019-12-23 12:26] LABS: BANDS 1 % (0-1); LYMPHS 23 % (21-51); MONO 1 % (1-9); SEGS 75 % (42-75)
--- NOTE | 2019-12-23 20:00 | PULMONOLOGY PROGRESS NOTE ---
DATE: 12/23/2019 SUBJECTIVE: The patient is awake, alert, and conversant. He reports he feels significantly better than earlier in the week. OBJECTIVE: Vital Signs: The patient has been afebrile for the last 24 hours. Blood pressure 116/68, heart rate 87, respiratory rate 23, oxygen saturation 96% on 50% FiO2. HEENT: Pupils are equal and reactive. Oropharynx appears clear. Neck: Is supple. Chest: Reveals crackles bilaterally. Cardiac exam: S1-S2. Abdomen: Is soft. Extremities: Without edema. LABORATORIES: Chest x-ray reveals bilateral infiltrates without change. White blood count 2.92, hemoglobin 9.5, platelet count 385,000. Sodium 141, potassium 4.3, chloride 97, bicarbonate 40. BUN 26, creatinine 0.5. IMPRESSION: A 64-year-old with 1. 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 2. Hypoxemic respiratory failure. 3. Clinical improvement following chemotherapy. PLAN: 1. Anticipate transfer to the floor today. 2. Continue steroids. 3. Continue BiPAP and high-flow oxygen. 4. Anticipate transfer to the floor soon. cc: Jose Ignacio MD
[2019-12-24] MEDS: SOLU-MEDROL IV SCH ×3 (05:56→21:52)
[2019-12-24] MEDS: LOVENOX SUBQ SCH (05:57)
[2019-12-24] MEDS: PROTONIX PO SCH (05:59)
[2019-12-24 06:14] LABS: EOS# 0.02 X1000 (0.0-0.7); EOS% 0.8 % (0.0-10.0); HEMATOCRIT 25.4 % (42.0-52.0); HEMOGLOBIN 7.2 g/dL (14.0-18.0); IMM GRAN# 0.16 X1000 (0.0-0.04); IMM GRAN% 6.7 % (0.0-0.5); LYMPH% 37.8 % (20.5-51.1); MCH 29.4 PG (27-31); MCHC 28.3 g/dL (33-37); MCV 103.7 FL (81-99); MONO# 0.08 X1000 (0.11-0.59); MONO% 3.4 % (1.7-9.3); MPV 10.8 FL (7.4-10.4); NEUT# 1.22 X1000 (1.4-6.5); NEUT% 51.3 % (42.2-75.2); PLT 359 X1000 (130-400); RBC 2.45 XMIL (4.7-6.1); RDW 13.9 % (11.5-14.5); WBC 2.38 X1000 (4.8-10.8)
[2019-12-24 06:28] LABS: AGAP 5; BUN 25 mg/dL (8-22); CALCIUM 7.8 mg/dL (8.8-10.2); CHLORIDE 100 mmol/L (98-107); COSMO 290; CREATININE 0.5 mg/dL (0.7-1.2); ESTIMATED GFR > 60; GLUCOSE 73 mg/dL (70-104); PHOSPHORUS 1.8 mg/dL (2.7-4.5); SODIUM 144 mmol/L (136-145); TCO2 39 mmol/L (25-35)
[2019-12-24] MEDS ORDERED: SODIUM PHOSPHATE 35 MMOL in NS 250 ML IV ONE (06:40)
--- NOTE | 2019-12-24 07:02 | PROGRESS NOTE ---
DATE: 12/24/2019 SUBJECTIVE: The patient reports breathing better. He is using high-flow nasal cannula upon my examination. No acute issues noted as per nursing staff overnight. OBJECTIVE: Vital Signs: Temperature 97.9, heart rate 88, respiratory rate 13, blood pressure 122/71, O2 saturation 94% on high-flow nasal cannula 40%. General: This is a chronically ill- appearing, 64-year-old, male, lying in bed in no acute distress. Cardiovascular: S1, S2 heard. No murmurs, gallops, or rubs. Regular rate and rhythm. Respiratory: Normal coarse breath sounds noted in both pulmonary bases. No work of breathing, and the patient is not using any accessory muscles. Abdomen: Soft, nontender to palpation. Bowel sounds present. No organomegaly. Extremities: No clubbing, cyanosis, or edema. Peripheral pulses present in both legs. Neurological: The patient is alert and oriented x3. Moves all 4 extremities. LABORATORY DATA: White cell count 2.38, with hemoglobin 7.2, hematocrit 25.4, platelets 359,000. No ABG from today. BMP is completely normal with phosphorus of 1.8 today. ASSESSMENT AND PLAN: 1. Acute on chronic respiratory failure secondary to lung adenocarcinoma. The patient reports breathing okay. He still continues to require high-flow nasal cannula. Clinically, the patient looks better. Pulmonary is following this patient. Will follow recommendations. 2. Chronic obstructive pulmonary disease exacerbation. Will continue with intravenous steroids and DuoNeb as well. 3. 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 So far, he has received 2 cycles of chemotherapy while he is in the hospital. Oncology is following this patient. Will follow recommendations. 4. Disposition. We continue to await a bed in the PVC unit. In the meantime, will continue to monitor this patient closely. cc: Imtiaz Taylor MD [facility]PITALSamson
[2019-12-24] MEDS: FOLIC ACID PO SCH (09:02)
[2019-12-24] MEDS: COLACE PO SCH ×2 (09:02→21:52)
[2019-12-24] MEDS: LASIX IV SCH (09:02)
[2019-12-24] MEDS: XOPENEX NEB INH SCH ×3 (09:41→22:55)
[2019-12-24] MEDS: ATROVENT NEB INH SCH ×3 (09:41→22:55)
--- NOTE | 2019-12-24 18:27 | PULMONOLOGY PROGRESS NOTE ---
DATE: 12/24/2019 SUBJECTIVE: The patient is awake, alert. He has been ambulating short distances in his room. He reports he is feeling well and is anxious to go to the floor. OBJECTIVE: Vital Signs: The patient has been afebrile for the last 24 hours. He is on high-flow nasal cannula. Blood pressure 133/65, heart rate 94, respiratory rate 21, oxygen saturation 96%. HEENT: Pupils are equal and reactive. Oropharynx appears clear. Neck: Is supple. Chest: Reveals scattered crackles bilaterally. Cardiac: Exam S1-S2. Abdomen: Is soft without hepatosplenomegaly. Extremities: Are without edema. IMPRESSION: A 64-year-old with 1. Bilateral multifocal lung cancer with lymphangitic spread. 2. Hypoxemic respiratory failure. 3. Status post 2 courses of chemotherapy. Clinically, he has improved following treatment. PLAN: 1. Anticipate transfer to the floor when beds are available. 2. Continue current steroids. 3. Cycle BiPAP and high-flow oxygen. cc: Jose Ignacio MD
[2019-12-25] MEDS: SOLU-MEDROL IV SCH ×3 (05:11→20:30)
[2019-12-25] MEDS: LOVENOX SUBQ SCH (05:12)
[2019-12-25] MEDS: PROTONIX PO SCH (06:36)
[2019-12-25 06:43] LABS: HEMATOCRIT 24.9 % (42.0-52.0); HEMOGLOBIN 7.3 g/dL (14.0-18.0); LYMPH# 0.62 X1000 (1.2-3.4); LYMPH% 30.5 % (20.5-51.1); MCHC 29.3 g/dL (33-37); MCV 102.5 FL (81-99); MONO# 0.12 X1000 (0.11-0.59); MONO% 5.9 % (1.7-9.3); MPV 11.2 FL (7.4-10.4); NEUT# 1.29 X1000 (1.4-6.5); NEUT% 63.6 % (42.2-75.2); PLT 273 X1000 (130-400); RBC 2.43 XMIL (4.7-6.1); RDW 13.7 % (11.5-14.5); WBC 2.03 X1000 (4.8-10.8)
--- NOTE | 2019-12-25 07:31 | Diag Imaging Result Doc PS360 ---
CHEST-PORTABLE - 12/25/2019 INDICATION: abnormal exam COMPARISON: 12/22/2019 FINDINGS: Stable right PICC line in good position. Stable extensive bilateral consolidations that are heterogeneous and mixed. There is some shifting atelectasis in the lower lobes bilaterally. Heart size is borderline. No large pleural effusion. IMPRESSION: Shifting atelectasis in the lung bases. Overall little change from prior. Electronically signed by David Gay 12/25/2019 7:29 AM
[2019-12-25 07:45] LABS: LYMPHS 26 % (21-51); MONO 2 % (1-9); SEGS 70 % (42-75)
--- NOTE | 2019-12-25 07:46 | PROGRESS NOTE ---
DATE: 12/25/2019 SUBJECTIVE: The patient reports breathing better. Currently, he is using BiPAP at the time of my examination. No acute issues noted as per nursing staff overnight. OBJECTIVE: Vital Signs: Temperature 97.8 degrees, heart rate 89, respiratory rate 20, blood pressure 113/57, O2 saturation 100% on BiPAP at FiO2 of 50%. General Examination: This is a chronically ill appearing, 64-year-old male, lying in bed, in no acute distress. Cardiovascular: S1, S2 heard. No murmurs, gallops, or rubs. Regular rate and rhythm. Respiratory: Coarse breath sounds noted in both pulmonary lopez. Patient not using any accessory muscles or having work of breathing. Abdomen: Soft, nontender to palpation. Bowel sounds present. No organomegaly. Extremities: No clubbing, cyanosis, or edema. Peripheral pulses present in both legs. Neurological: Patient is alert and oriented x3. Moves 4 extremities. LABORATORY DATA: Pending at the time of dictation. ASSESSMENT AND PLAN: 1. Acute on chronic respiratory failure secondary to lung adenocarcinoma. The patient reports breathing okay. He continues to require high-flow nasal cannula. Basically his high oxygen needs our precluding us from discharging him home. Pulmonary following this patient. We will follow recommendations. 2. Chronic obstructive pulmonary disease. We will continue with IV steroids as well. 3. Multifocal bilateral lung adenocarcinoma with lymphatic spread. Oncology following this patient. We will follow recommendations. 4. Disposition. We will continue to monitor this patient closely. As we mentioned before patient cannot be discharged home because of his oxygen needs. cc: Imtiaz Taylor MD MTDD
[2019-12-25] MEDS: LASIX IV SCH (08:16)
[2019-12-25] MEDS: COLACE PO SCH ×3 (08:16→20:39)
[2019-12-25] MEDS: FOLIC ACID PO SCH (08:17)
[2019-12-25] MEDS ORDERED: NS 500 ML ONE (10:59)
[2019-12-25] MEDS: GRANIX SUBQ SCH (11:38)
[2019-12-25] MEDS: ATROVENT NEB INH SCH ×3 (11:43→22:55)
[2019-12-25] MEDS: XOPENEX NEB INH SCH ×3 (11:43→22:55)
--- NOTE | 2019-12-25 13:07 | PROVIDER PROGRESS NOTE ---
Progress Note Dr. Escamilla Progress Note/Pulmonary and or critical care We appreciated progress of care, Complications, change in diagnosis, and instructions to patient. Subjective: We note the level of consciousness, bed (chair) position, family presence (if any), level of lethargy, feeling of symptoms, and changes from baseline condition/symptom. The patient is awake, lying in bed having his breakfast. He is on HFNC 55% at this time. He was put on BiPAP temporally this am secondary to hypercapnia. He h as no cough. He states he is feeling great. He has no complaint at this time. Objective: Vital Signs: We reviewed EMR current values for Pulse rate, Blood pressure, Pulse rate, respiratory rate and Pulse oximetry. Also noted other values and trends if present (e.g. I/O, CVP). T 98.8 (No fever in last 24 hours), [place] 94 , RR 20 , BP 119/60 and SaO2 100% on HFNC 55%. Physical Examination: General: Very pleasant. Lying in bed with no acute distress noted. HEENT: Normocephalic. Trachea midline. Mucosa pink and moist. Respiratory: Even and unlabored. Symmetrical excursion. Inspiratory crackles bilaterally. CVS: S1 and S2 appreciated. Abdomen: Soft. Nontender. Nondistended. Bowel sounds present. Extremities: No pedal edema. Neuro: Awake. Alert. Follows commands. Labs and Radiology: Reviewed available labs and radiology values available at time of EMR review. Evaluation, face to face and management by Dr. Escamilla. JOE did scribing only Laboratory Results 12/24/19 12/25/19 12/25/19 05:30 05:41 05:41 WBC 2.03 L RBC 2.43 L Hgb 7.3 L Hct 24.9 L MCV 102.5 H MCH 30.0 MCHC 29.3 L RDW Std Deviation 13.7 Plt Count 273 MPV 11.2 H Immature Gran % (Auto) 0.0 Neut % (Auto) 63.6 Lymph % (Auto) 30.5 [place] % (Auto) 5.9 Eos % (Auto) 0.0 Baso % (Auto) 0.0 Immature Gran # (Auto) 0.00 Neut # (Auto) 1.29 L Lymph # (Auto) 0.62 L [place] # (Auto) 0.12 Eos # (Auto) 0.00 Baso # (Auto) 0.00 Segmented Neutrophils 70 Lymphocytes 26 Monocytes 2 Unidentified Cells 2.0 Phosphorus 2.6 L Blood Type Blood Type Confirm B POSITIVE Antibody Screen Crossmatch 12/25/19 05:41 WBC RBC Hgb Hct MCV MCH MCHC RDW Std Deviation Plt Count MPV Immature Gran % (Auto) Neut % (Auto) Lymph % (Auto) [place] % (Auto) Eos % (Auto) Baso % (Auto) Immature Gran # (Auto) Neut # (Auto) Lymph # (Auto) [place] # (Auto) Eos # (Auto) Baso # (Auto) Segmented Neutrophils Lymphocytes Monocytes Unidentified Cells Phosphorus Blood Type B POSITIVE Blood Type Confirm Antibody Screen NEGATIVE Crossmatch See Detail sessment: Acute on chronic hypoxemic hypercapnic respiratory failure. Multifocal non-small cell lung cancer with lymphangitic spread, status post 2nd chemotherapy infusion on 12/18/19. Pneumonitis secondary to chemotherapy with possible superimposed bacterial pneumonia. Procalcitonin on 12/15/19 elevated. Sputum culture on 12/10/19 was negative. Tobacco abuse. Plan: Continue current treatment and supportive care per admitting and other teams on the case. Cycle BiPAP and supplemental oxygen as needed. Diuresis. Bronchodilators. IV Solu-Medrol. Antibiotic including Azithromycin, Meropenem and vancomycin. Appropriate DVT and GI prophylaxis Input was appreciated from Admitting MD and other teams on the case. Evaluation time in minutes: 34 minutes.
[2019-12-25] MEDS ORDERED: NS 500 ML IV SCH (17:30)
[2019-12-26 05:48] LABS: ALLEN TEST YES; BLOOD TYPE ARTERIAL; HCO3-(ACT) 35.7 mmoll (20.0-26.0); METHB 1.1 % (0.0-1.5); O2(CT) 11.2 mL/dL (15.0-23.0); PO2(98.6) 51 mmHg (60-100); SAMPLE BLOOD; SAO2 90.5 % (95.0-100.0); THB 9.1 g/dL (11.5-17.4)
[2019-12-26 05:50] LABS: MODALITY BI PAP
[2019-12-26 05:52] LABS: PCO2(98.6) 66 mmHg (35-45)
[2019-12-26 05:53] LABS: O2HB 87.4 % (95.0-99.0)
[2019-12-26] MEDS: SOLU-MEDROL IV SCH ×3 (05:59→20:58)
[2019-12-26] MEDS: LOVENOX SUBQ SCH (06:00)
[2019-12-26] MEDS: PROTONIX PO SCH (06:00)
[2019-12-26 07:25] LABS: HEMATOCRIT 30.3 % (42.0-52.0); HEMOGLOBIN 9.3 g/dL (14.0-18.0); LYMPH# 0.56 X1000 (1.2-3.4); LYMPH% 35.2 % (20.5-51.1); MCH 30.5 PG (27-31); MCHC 30.7 g/dL (33-37); MCV 99.3 FL (81-99); MONO# 0.12 X1000 (0.11-0.59); MONO% 7.5 % (1.7-9.3); MPV 10.9 FL (7.4-10.4); NEUT# 0.91 X1000 (1.4-6.5); NEUT% 57.3 % (42.2-75.2); PLT 191 X1000 (130-400); RBC 3.05 XMIL (4.7-6.1); RDW 14.7 % (11.5-14.5); WBC 1.59 X1000 (4.8-10.8)
[2019-12-26] MEDS: FOLIC ACID PO SCH (08:18)
[2019-12-26] MEDS: LASIX IV SCH (08:18)
[2019-12-26] MEDS: XOPENEX NEB INH SCH ×3 (09:14→22:09)
[2019-12-26] MEDS: ATROVENT NEB INH SCH ×3 (09:14→22:09)
[2019-12-26] MEDS: COLACE PO SCH ×2 (11:06→20:58)
[2019-12-26] MEDS: GRANIX SUBQ SCH (11:32)
--- NOTE | 2019-12-26 15:05 | PROGRESS NOTE ---
DATE: 12/26/2019 SUBJECTIVE: The patient reports feeling okay. Is still requiring high-flow nasal cannula. OBJECTIVE: Vital Signs: Temperature 98.4 degrees, heart rate 92, respiratory rate 18, blood pressure 120/63, O2 saturation 100% on high-flow nasal cannula 4 L/minute. General Examination: This is a chronically ill appearing, 64-year-old male, lying in bed, in no acute distress. Cardiovascular: S1, S2 heard. No murmurs, gallops, or rubs. Regular rate and rhythm. Respiratory: Coarse breath sounds and rhonchi noted in both pulmonary bases. Patient not using any accessory muscles or having work of breathing. Abdomen: Soft, nontender to palpation. Bowel sounds present. No organomegaly. Extremities: No clubbing, cyanosis, or edema. Peripheral pulses present in both legs. Neurological: Patient is alert and oriented x3. Moves 4 extremities. LABORATORY DATA: White cell count 1.59 with hemoglobin 9.3, hematocrit 30.3, platelets 191,000. ASSESSMENT AND PLAN: 1. Acute on chronic respiratory failure secondary to lung adenocarcinoma. Clinically, this patient is okay. He continues to require oxygen by high-flow nasal cannula. We will continue to monitor this patient closely. Pulmonary following this patient. We will follow recommendations. 2. 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 Oncology following this patient. They are planning to provide treatment on 6 days. 3. Anemia and leukopenia secondary to chemotherapy. The patient has received 2 units of blood and because of leukopenia, started receiving Granix. We will continue to monitor. 4. Disposition. We will continue to monitor this patient here in the hospital. cc: Imtiaz Taylor MD
--- NOTE | 2019-12-26 15:45 | PROVIDER PROGRESS NOTE ---
Progress Note Progress Note Dr. Escamilla Progress Note/Pulmonary and or critical care We appreciated progress of care, Complications, change in diagnosis, and instructions to patient. Subjective: We note the level of consciousness, bed (chair) position, family presence (if any), level of lethargy, feeling of symptoms, and changes from baseline condition/symptom. The patient is awake, lying in bed. He is on HFNC 50% at this time. BiPAP PRN . He has no cough. He has no complaint at this time. Objective: Vital Signs: We reviewed EMR current values for Pulse rate, Blood pressure, Pulse rate, respiratory rate and Pulse oximetry. Also noted other values and trends if present (e.g. I/O, CVP). T 98.1 (No fever in last 24 hours), [place] 88 , RR 20 , BP 128/62, and SaO2 100% on HFNC 50%. Physical Examination: General: Very pleasant. Lying in bed with no acute distress noted. HEENT: Normocephalic. Trachea midline. Mucosa pink and moist. Respiratory: Even and unlabored. Symmetrical excursion. decreased entry. CVS: S1 and S2 appreciated. Abdomen: Soft. Nontender. Nondistended. Bowel sounds present. Extremities: No pedal edema. 1+ edema in lower extremities. Neuro: Awake. Alert. Follows commands. Labs and Radiology: Reviewed available labs and radiology values available at time of EMR review. Evaluation, face to face and management by Dr. Escamilla. JOE Alexis did sc ribing only Laboratory Results 12/25/19 12/26/19 12/26/19 05:41 05:00 06:02 WBC RBC Hgb Hct MCV MCH MCHC RDW Std Deviation Plt Count MPV Immature Gran % (Auto) Neut % (Auto) Lymph % (Auto) Kendall % (Auto) Eos % (Auto) Baso % (Auto) Immature Gran # (Auto) Neut # (Auto) Lymph # (Auto) Kendall # (Auto) Eos # (Auto) Baso # (Auto) Specimen Type ARTERIAL Sample Site R RADIAL pH 7.40 pCO2 66 H* pO2 51 L HCO3 35.7 H Base Excess 14.0 H Oxyhemoglobin 87.4 L* ABG O2 Sat (Calculated) 11.2 L ABG O2 Saturation 90.5 L ABG Carboxyhemoglobin 2.40 ABG Methemoglobin 1.1 Dillan Test YES A-a O2 Difference 223.0 Total Hemoglobin 9.1 L Lactate 1.30 Blood Gas Modality BI PAP Vent Mode BIPAP FiO2 % 50.0 Inspiratory BiPAP 18.0 Expiratory BiPAP 8.0 Phosphorus 2.3 L Blood Type B POSITIVE Antibody Screen NEGATIVE Crossmatch See Detail 12/26/19 06:02 WBC 1.59 L RBC 3.05 L Hgb 9.3 L D Hct 30.3 L D MCV 99.3 H MCH 30.5 MCHC 30.7 L RDW Std Deviation 14.7 H Plt Count 191 D MPV 10.9 H Immature Gran % (Auto) 0.0 Neut % (Auto) 57.3 Lymph % (Auto) 35.2 Kend[place] % (Auto) 7.5 Eos % (Auto) 0.0 Baso % (Auto) 0.0 Immature Gran # (Auto) 0.00 Neut # (Auto) 0.91 L Lymph # (Auto) 0.56 L Kendall # (Auto) 0.12 Eos # (Auto) 0.00 Baso # (Auto) 0.00 Specimen Type Sample Site pH pCO2 pO2 HCO3 Base Excess Oxyhemoglobin ABG O2 Sat (Calculated) ABG O2 Saturation ABG Carboxyhemoglobin ABG Methemoglobin Dillan Test A-a O2 Difference Total Hemoglobin Lactate Blood Gas Modality Vent Mode FiO2 % Inspiratory BiPAP Expiratory BiPAP Phosphorus Blood Type Antibody Screen Crossmatch sessment: Acute on chronic hypoxemic hypercapnic respiratory failure. Multifocal non-small cell lung cancer with lymphangitic spread, status post 2nd chemotherapy infusion on 12/18/19. Pneumonitis secondary to chemotherapy with possible superimposed bacterial pneumonia. Procalcitonin on 12/15/19 elevated. Sputum culture on 12/10/19 was negative. Tobacco abuse. Plan: Continue current treatment and supportive care per admitting and other teams on the case. we titrated BiPAP/high flow cannula and supplemental oxygen as needed. Diuresis. Bronchodilators. IV Solu-Medrol. Antibiotic including Azithromycin, Meropenem and vancomycin. Appropriate DVT and GI prophylaxis Input was appreciated from Admitting MD and other teams on the case. Evaluation time in minutes: 35 minutes.
[2019-12-27] MEDS: SOLU-MEDROL IV SCH ×3 (06:03→21:02)
[2019-12-27] MEDS: LOVENOX SUBQ SCH (06:03)
[2019-12-27] MEDS: PROTONIX PO SCH (06:03)
[2019-12-27] MEDS: LASIX IV SCH (08:40)
[2019-12-27] MEDS: COLACE PO SCH ×2 (08:40→21:02)
[2019-12-27] MEDS: FOLIC ACID PO SCH (08:40)
[2019-12-27] MEDS: ATROVENT NEB INH SCH ×3 (09:35→22:31)
[2019-12-27] MEDS: XOPENEX NEB INH SCH ×3 (09:35→22:30)
--- NOTE | 2019-12-27 10:05 | PROGRESS NOTE ---
DATE: 12/27/2019 SUBJECTIVE: Patient reports breathing okay. He is requiring at this point, BiPAP. Denies any fever or chills. OBJECTIVE: Vital Signs: Temperature 97.5 degrees, heart rate 82, respiratory 22, blood pressure 124/69, O2 saturation 100% on BiPAP. General Examination: This is a chronically ill-appearing, 64-year-old, male, lying in bed, in no acute distress. Cardiovascular: S1, S2 heard. No murmurs, gallops, or rubs. Regular rate and rhythm. Respiratory: Coarse breath sounds noted in both pulmonary bases as well as rhonchi. Patient is not using any accessory muscles or having work of breathing. Abdomen: Soft, nontender to palpation. Bowel sounds present. No organomegaly. Extremities: No clubbing, cyanosis, or edema. Peripheral pulses present in both legs. Neurological: Patient is alert and oriented x3. Moves 4 extremities. LABORATORY DATA: White cell count was low yesterday, 1.59. We do not have the results of the CBC today. ASSESSMENT AND PLAN: 1. Acute on chronic respiratory failure secondary to lung adenocarcinoma. Clinically, the patient is okay but he is requiring still high amounts of oxygen. Now, he is requiring BiPAP. We will continue to monitor. 2. 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 Oncology following this patient. The patient is going to receive chemotherapy next Saturday. 3. Anemia and leukopenia secondary to chemotherapy. The patient's hemoglobin is much better at 9.6, but leukopenia is still there. Patient receiving Granix. Will continue to monitor. 4. Disposition. We will continue to monitor this patient closely. cc: Imtiaz Taylor MD
[2019-12-27] MEDS: GRANIX SUBQ SCH (10:06)
--- NOTE | 2019-12-27 18:23 | PROVIDER PROGRESS NOTE ---
Progress Note Dr. Escamilla Progress Note/Pulmonary and or critical care We appreciated progress of care, Complications, change in diagnosis, and instructions to patient. Subjective: We note the level of consciousness, bed (chair) position, family presence (if any), level of lethargy, feeling of symptoms, and changes from baseline condition/symptom. The patient is awake, lying in bed. He is on HFNC 50% at this time. BiPAP PRN . He has no cough. He has no complaint at this time. Objective: Vital Signs: We reviewed EMR current values for Pulse rate, Blood pressure, Pulse rate, respiratory rate and Pulse oximetry. Also noted other values and trends if present (e.g. I/O, CVP). T 98.8(No fever in last 24 hours), IA 88 , RR 20 , BP 124/88 , and SaO2 98% on HFNC 50%. Physical Examination: General: Very pleasant. Lying in bed with no acute distress noted. HEENT: Normocephalic. Trachea midline. Mucosa pink and moist. Respiratory: Even and unlabored. Symmetrical excursion. decreased entry. CVS: S1 and S2 appreciated. Abdomen: Soft. Nontender. Nondistended. Bowel sounds present. Extremities: No pedal edema. 1+ edema in lower extremities. Neuro: Awake. Alert. Follows commands. Labs and Radiology: Reviewed available labs and radiology values available at time of EMR review. Evaluation, face to face and management by Dr. Escamilla. JOE Alexis did scribing only Assessment: Acute on chronic hypoxemic hypercapnic respiratory failure. Multifocal non-small cell lung cancer with lymphangitic spread, status post 2nd chemotherapy infusion on 12/18/19. Pneumonitis secondary to chemotherapy with possible superimposed bacterial pneumonia. Procalcitonin on 12/15/19 elevated. Sputum culture on 12/10/19 was negative. Tobacco abuse. Plan: Continue current treatment and supportive care per admitting and other teams on the case. we titrated BiPAP/high flow cannula and supplemental oxygen as needed. Diuresis. Bronchodilators. IV Solu-Medrol. Antibiotic including Azithromycin, Meropenem and vancomycin. Appropriate DVT and GI prophylaxis Input was appreciated from Admitting MD and other teams on the case. Evaluation time in minutes: 34 minutes.
[2019-12-28] MEDS: LOVENOX SUBQ SCH (05:59)
[2019-12-28] MEDS: SOLU-MEDROL IV SCH ×3 (05:59→21:21)
[2019-12-28] MEDS: PROTONIX PO SCH (06:00)
[2019-12-28 07:09] LABS: ALLEN TEST YES; BE 11.7 mmoll (-3.0-3.0); BLOOD TYPE ARTERIAL; METHB 0.9 % (0.0-1.5); O2(CT) 13.5 mL/dL (15.0-23.0); O2HB 92.9 % (95.0-99.0); PO2(98.6) 59 mmHg (60-100); SAMPLE BLOOD; SAO2 95.5 % (95.0-100.0); THB 10.3 g/dL (11.5-17.4); pH(98.6) 7.43 (7.35-7.45)
[2019-12-28 07:10] LABS: MODALITY CANNULA
[2019-12-28 07:11] LABS: PCO2(98.6) 57 mmHg (35-45)
[2019-12-28 07:21] LABS: AGAP 9; BUN 19 mg/dL (8-22); CALCIUM 7.9 mg/dL (8.8-10.2); CHLORIDE 99 mmol/L (98-107); COSMO 282; CREATININE 0.6 mg/dL (0.7-1.2); ESTIMATED GFR > 60; GLUCOSE 76 mg/dL (70-104); POTASSIUM 3.4 mmol/L (3.5-5.1); SODIUM 141 mmol/L (136-145); TCO2 33 mmol/L (25-35)
--- NOTE | 2019-12-28 07:33 | Diag Imaging Result Doc PS360 ---
CHEST-1 VIEW - 12/28/2019 INDICATION: SOB COMPARISON: 12/25/2019 FINDINGS: Stable right PICC line in good position. Stable course extensive bilateral infiltrates. Stable mild cardiomegaly. No new infiltrates. No large pleural effusion. IMPRESSION: No change from prior. Electronically signed by David Gay 12/28/2019 7:31 AM
[2019-12-28 08:09] LABS: HEMATOCRIT 27.9 % (42.0-52.0); HEMOGLOBIN 8.3 g/dL (14.0-18.0); IMM GRAN# 0.04 X1000 (0.0-0.04); IMM GRAN% 2.2 % (0.0-0.5); LYMPH# 1.08 X1000 (1.2-3.4); LYMPH% 58.4 % (20.5-51.1); MCH 29.5 PG (27-31); MCHC 29.7 g/dL (33-37); MCV 99.3 FL (81-99); MONO# 0.28 X1000 (0.11-0.59); MONO% 15.1 % (1.7-9.3); MPV 10.9 FL (7.4-10.4); NEUT% 24.3 % (42.2-75.2); PLT 79 X1000 (130-400); RBC 2.81 XMIL (4.7-6.1); RDW 13.5 % (11.5-14.5); WBC 1.85 X1000 (4.8-10.8)
[2019-12-28 08:10] LABS: NEUT# 0.45 X1000 (1.4-6.5)
--- NOTE | 2019-12-28 08:45 | PROGRESS NOTE ---
DATE: 12/28/2019 SUBJECTIVE: Patient reports breathing okay. He is using high flow nasal cannula. Denies any other complaints. OBJECTIVE: Vital Signs: Temperature 98.8 degrees, heart rate 88, respiratory rate 17, blood pressure 104/69, O2 saturation 97% on high-flow nasal cannula. General: This is a chronically ill-appearing 64-year-old -[place] male lying in bed, in no acute distress. Cardiovascular: S1, S2 heard. No murmurs, gallops, or rubs. Regular rate and rhythm. Respiratory: Coarse breath sounds noted in both pulmonary bases without rhonchi. The patient is not using any accessory muscles or having work of breathing. Abdomen: Soft, nontender to palpation. Bowel sounds present. No organomegaly. Extremities: No clubbing, cyanosis, or edema. Peripheral pulses present in both legs. Neurological: The patient is alert and oriented x3. Moves all 4 extremities. LABORATORY DATA: Pending at the time of my dictation but, from yesterday, white cell count was 1.59. ASSESSMENT AND PLAN: 1. Acute on chronic respiratory failure secondary to lung adenocarcinoma. He continues to require high-flow nasal cannula. His oxygen continues to be basically the same. We will continue to monitor. 2. 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 Oncology is following this patient and they are planning to do chemotherapy this Saturday. 3. Anemia and leukopenia secondary to chemotherapy. Patient has been transfused 2 units of blood and hemoglobin is much better. The patient is receiving Granix. Unfortunately his white cell count continues to be low. We will continue to monitor. 4. Disposition: We will continue to monitor this patient closely. Hopefully his white cell count will be high enough to receive chemotherapy this Saturday. cc: Imtiaz Taylor MD
[2019-12-28] MEDS: GRANIX SUBQ SCH (08:48)
[2019-12-28] MEDS: LASIX IV SCH (08:48)
[2019-12-28] MEDS: FOLIC ACID PO SCH (08:48)
[2019-12-28] MEDS: COLACE PO SCH ×2 (08:49→21:21)
[2019-12-28] MEDS: ATROVENT NEB INH SCH ×3 (10:23→23:26)
[2019-12-28] MEDS: XOPENEX NEB INH SCH ×3 (10:23→23:26)
[2019-12-29] MEDS: PROTONIX PO SCH ×2 (05:10→06:16)
[2019-12-29] MEDS: SOLU-MEDROL IV SCH ×3 (05:10→21:02)
[2019-12-29] MEDS: LOVENOX SUBQ SCH (05:10)
[2019-12-29 06:51] LABS: HEMATOCRIT 27.9 % (42.0-52.0); HEMOGLOBIN 8.4 g/dL (14.0-18.0); IMM GRAN# 0.02 X1000 (0.0-0.04); IMM GRAN% 0.6 % (0.0-0.5); LYMPH# 0.91 X1000 (1.2-3.4); LYMPH% 25.1 % (20.5-51.1); MCH 29.4 PG (27-31); MCHC 30.1 g/dL (33-37); MCV 97.6 FL (81-99); MONO# 0.67 X1000 (0.11-0.59); MONO% 18.5 % (1.7-9.3); MPV 11.4 FL (7.4-10.4); NEUT# 2.02 X1000 (1.4-6.5); NEUT% 55.8 % (42.2-75.2); PLT 48 X1000 (130-400); RBC 2.86 XMIL (4.7-6.1); RDW 13.2 % (11.5-14.5); WBC 3.62 X1000 (4.8-10.8)
[2019-12-29] MEDS: GRANIX SUBQ SCH (09:51)
[2019-12-29] MEDS: LASIX IV SCH (09:51)
[2019-12-29] MEDS: COLACE PO SCH ×2 (09:52→21:02)
[2019-12-29] MEDS: FOLIC ACID PO SCH (09:52)
[2019-12-29] MEDS: ATROVENT NEB INH SCH ×3 (10:27→22:15)
[2019-12-29] MEDS: XOPENEX NEB INH SCH ×3 (10:27→22:15)
--- NOTE | 2019-12-29 10:37 | PROGRESS NOTE ---
DATE: 12/29/2019 SUBJECTIVE: The patient reports breathing okay. He is currently using a high- flow nasal cannula. OBJECTIVE: Vital Signs: Temperature 97.9 degrees, heart rate 84, respiratory rate 20, blood pressure 123/84, O2 saturation 98% on high-flow nasal cannula. General: This is a chronically ill-appearing, 64-year-old, male, lying in bed in no acute distress. Cardiovascular: S1, S2 heard. No murmurs, gallops, or rubs. Regular rate and rhythm. Respiratory: Coarse breath sounds are still noted in both pulmonary lopez. The patient is not using any accessory muscles or having work of breathing. Abdomen: Soft, nontender to palpation. Bowel sounds present. Extremities: No clubbing, cyanosis, or edema. Neurological: The patient is alert and oriented x3. Moves all 4 extremities. LABORATORY DATA: White cell count is 3.62, with hemoglobin 8.4, hematocrit 27.9, platelets 48,000. ASSESSMENT AND PLAN: 1. Acute on chronic respiratory failure secondary to lung adenocarcinoma. Clinically, he is stable, not short of breath, but still requiring high-flow nasal cannula. Will continue with the same management. 2. 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 Oncology continues to follow this patient. I am planning to do chemotherapy on Saturday. 3. Anemia, thrombocytopenia, and leukopenia secondary to chemotherapy. Today, the white cell count is much better. The patient is receiving Granix on a daily basis. Platelets started to decrease, so we have stopped Lovenox, and will continue to monitor CBC daily. 4. Disposition. Will continue to monitor this patient closely. Hopefully, his white cell count continues to improve, so he can get chemotherapy this Saturday. cc: Imtiaz Taylor MD [facility]ALSamson
[2019-12-30] MEDS: SOLU-MEDROL IV SCH ×3 (05:49→21:46)
[2019-12-30] MEDS: PROTONIX PO SCH ×2 (05:50→06:13)
[2019-12-30 06:46] LABS: BASO# 0.02 X1000 (0.0-0.2); BASO% 0.2 % (0.0-0.8); HEMATOCRIT 27.7 % (42.0-52.0); HEMOGLOBIN 8.4 g/dL (14.0-18.0); IMM GRAN# 0.82 X1000 (0.0-0.04); IMM GRAN% 7.2 % (0.0-0.5); LYMPH# 1.33 X1000 (1.2-3.4); LYMPH% 11.7 % (20.5-51.1); MCH 29.7 PG (27-31); MCHC 30.3 g/dL (33-37); MCV 97.9 FL (81-99); MONO# 1.35 X1000 (0.11-0.59); MONO% 11.9 % (1.7-9.3); MPV 11.4 FL (7.4-10.4); NEUT# 7.87 X1000 (1.4-6.5); RBC 2.83 XMIL (4.7-6.1); RDW 13.4 % (11.5-14.5); WBC 11.39 X1000 (4.8-10.8)
[2019-12-30 06:49] LABS: PLT 32 X1000 (130-400)
--- NOTE | 2019-12-30 06:57 | PULMONOLOGY PROGRESS NOTE ---
DATE: 12/29/2019 SUBJECTIVE: The patient is awake, alert, and conversant. He reports his breathing is stable. OBJECTIVE: Vital Signs: The patient has been afebrile for the last 24 hours. Blood pressure 127/55, heart rate 76, respiratory rate 16, oxygen saturation 96% with high-flow FiO2. HEENT: Pupils are equal and reactive. Oropharynx appears clear. Neck: Supple. Chest: Crackles bilaterally. Cardiac: S1, S2. Abdomen: Soft. Extremities: Without edema. LABORATORY DATA: White blood count 2.62, hemoglobin 8.4, platelet count 48,000. IMPRESSION: A 64-year-old with: 1. 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 2. Hypoxemic respiratory failure. 3. Clinical improvement on chemotherapy. 4. Thrombocytopenia/leukopenia. White blood count is recovering. PLAN: 1. Continue oxygen with high-flow nasal cannula and BiPAP as needed. 2. Continue current steroids. 3. Anticipate chemotherapy at the end of the week pending improvement in blood counts. cc: Jose Ignacio MD
[2019-12-30] MEDS: FOLIC ACID PO SCH (08:54)
[2019-12-30] MEDS: LASIX IV SCH (08:54)
[2019-12-30] MEDS: GRANIX SUBQ SCH (08:54)
[2019-12-30] MEDS: COLACE PO SCH ×2 (08:54→21:46)
[2019-12-30] MEDS ORDERED: NS 500 ML IV ONE (09:07)
[2019-12-30] MEDS: ATROVENT NEB INH SCH ×3 (09:37→21:17)
[2019-12-30] MEDS: XOPENEX NEB INH SCH ×3 (09:37→21:17)
--- NOTE | 2019-12-30 11:09 | PROGRESS NOTE ---
DATE: 12/30/2019 SUBJECTIVE: The patient reports breathing okay. He is resting on the edge of the bed. No complaints noted. OBJECTIVE: Vital Signs: Temperature 98 degrees, heart rate 76, respiratory rate 20, blood pressure 127/65, O2 saturation 95% on high-flow nasal cannula. General: This is a chronically ill appearing, 64-year-old, male, lying in bed in no acute distress. Cardiovascular: S1, S2 heard. No murmurs, gallops, or rubs. Regular rate and rhythm. Respiratory: Coarse breath sounds still noted in both pulmonary lopez. The patient is not using any accessory muscles or having work of breathing. Abdomen: Soft, nontender to palpation. Bowel sounds present. No organomegaly. Extremities: No clubbing, cyanosis, or edema. Peripheral pulses present in both legs. Neurological: The patient is alert and oriented x3. Moves all 4 extremities. LABORATORY DATA: Platelets are 38,000. ASSESSMENT AND PLAN: 1. Acute on chronic respiratory failure secondary to lung adenocarcinoma. Will continue with high-flow nasal cannula. He is not complaining of any shortness of breath. Will continue to monitor. 2. Focal bilateral lung adenocarcinoma with lymphangitic spread. Oncology is planning to proceed with chemotherapy on Saturday. 3. Anemia, thrombocytopenia, and leukopenia. Leukopenia is completely resolved after administration of Granix. Thrombocytopenia has worsened, so at this point, we are going to transfuse 2 units of blood, and check CBC tomorrow. 4. Disposition. At this point, will continue to monitor the patient closely. Hopefully, his leukocytes, platelets, and red blood cells will be fine for receiving chemotherapy this Saturday. cc: Imtiaz Taylor MD [facility]
[2019-12-31] MEDS: PROTONIX PO SCH (06:42)
[2019-12-31] MEDS: SOLU-MEDROL IV SCH ×3 (06:42→20:56)
[2019-12-31 07:20] LABS: BASO% 0.7 % (0.0-0.8); HEMATOCRIT 27.2 % (42.0-52.0); HEMOGLOBIN 8.2 g/dL (14.0-18.0); LYMPH# 1.98 X1000 (1.2-3.4); LYMPH% 6.9 % (20.5-51.1); MCH 29.6 PG (27-31); MCHC 30.1 g/dL (33-37); MCV 98.2 FL (81-99); MPV 10.4 FL (7.4-10.4); PLT 105 X1000 (130-400); RBC 2.77 XMIL (4.7-6.1); RDW 13.5 % (11.5-14.5); WBC 28.66 X1000 (4.8-10.8)
[2019-12-31 07:51] LABS: LYMPHS 5 % (21-51); MONO 4 % (1-9); SEGS 91 % (42-75)
[2019-12-31] MEDS: LASIX IV SCH (09:38)
[2019-12-31] MEDS: GRANIX SUBQ SCH (09:38)
[2019-12-31] MEDS: FOLIC ACID PO SCH (09:38)
[2019-12-31] MEDS: COLACE PO SCH ×2 (09:39→20:57)
[2019-12-31] MEDS: ATROVENT NEB INH SCH ×3 (10:37→23:56)
[2019-12-31] MEDS: XOPENEX NEB INH SCH ×3 (10:37→23:56)
--- NOTE | 2019-12-31 12:50 | PROGRESS NOTE ---
DATE: 12/31/2019 SUBJECTIVE: Patient reports feeling fine. No signs of bleeding. He is lying in bed, in no acute distress. OBJECTIVE: Vital Signs: Temperature 98.1 degrees, heart rate 88, respiratory rate 19, blood pressure 134/60, O2 saturation 95% on high-flow nasal cannula. General examination: This is a chronically ill-appearing, 64-year-old male, lying in bed in no acute distress. Cardiovascular exam: S1, S2 heard. No murmurs, gallops, or rubs. Respiratory exam: Coarse breath sounds noted in both pulmonary lopez. Patient not using any accessory muscles or having work of breathing. Abdomen: Soft, nontender to palpation. Extremities: No clubbing, cyanosis, or edema. Neurological exam: Patient alert and oriented x3. LABORATORY DATA: Platelet count is 105 with white cell count 28.66, hemoglobin 8.2. ASSESSMENT AND PLAN: 1. Acute on chronic respiratory failure secondary to lung carcinoma. We will continue with high- flow nasal cannula. Clinically, this patient is stable. We will continue to monitor. 2. Bilateral lung adenocarcinoma with lymphangitic spread. Oncology is planning to proceed with chemotherapy tomorrow. We will follow recommendations. 3. Anemia, thrombocytopenia and leukopenia secondary to chemotherapy. The platelet count is 100,000, we have transfused 2 units of blood to this patient. We will continue to monitor. 4. Disposition: At this point we will continue with same management. Patient will receive chemotherapy tomorrow as per Hematology/Oncology. cc: Imtiaz Taylor MD
--- NOTE | 2019-12-31 21:52 | PULMONOLOGY PROGRESS NOTE ---
DATE: 12/31/2019 SUBJECTIVE: The patient is awake, alert, and conversant. He reports he has had a good day. He is currently on 40% high-flow oxygen. OBJECTIVE: HEENT: Pupils are equal and reactive. Oropharynx appears clear. Neck: Supple. Chest: Reveals crackles in both lung bases. Cardiac: S1-S2. Abdomen: Soft. Extremities: Without edema. IMPRESSION: A 64-year-old with: 1. 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 2. Hypoxemic respiratory failure. 3. Thrombocytopenia and leukopenia, which has resolved. 4. Clinical improvement on chemotherapy. PLAN: 1. Anticipate next course of chemotherapy tomorrow. 2. Transfer the patient to a floor were chemotherapy nursing is more readily available. 3. Continue current oxygen delivery regimen. cc: Jose Ignacio MD
[2020-01-01] MEDS: SOLU-MEDROL IV SCH ×3 (06:03→20:23)
[2020-01-01] MEDS: PROTONIX PO SCH (06:04)
[2020-01-01] MEDS: FOLIC ACID PO SCH (08:30)
[2020-01-01] MEDS: COLACE PO SCH ×2 (08:31→20:23)
[2020-01-01] MEDS: LASIX IV SCH (08:31)
[2020-01-01 08:40] LABS: HEMATOCRIT 27.3 % (42.0-52.0); HEMOGLOBIN 8.3 g/dL (14.0-18.0); LYMPH# 2.82 X1000 (1.2-3.4); LYMPH% 5.8 % (20.5-51.1); MCH 29.6 PG (27-31); MCHC 30.4 g/dL (33-37); MCV 97.5 FL (81-99); MPV 10.2 FL (7.4-10.4); PLT 85 X1000 (130-400); WBC 48.82 X1000 (4.8-10.8)
[2020-01-01 09:00] LABS: BANDS 28 % (0-1); HYPOCHROM 1+; LARGE PLATELETS 1+; LYMPHS 4 % (21-51); NRBC 1 % (0-0); SEGS 62 % (42-75)
--- NOTE | 2020-01-01 09:06 | PROGRESS NOTE ---
DATE: 01/01/2020 SUBJECTIVE: Patient reports feeling fine. Continues to require oxygen by high-flow nasal cannula. OBJECTIVE: Vital Signs: Temperature 98.9 degrees, heart rate 88, respiratory rate 20, 127/75, O2 saturation 100% on high-flow nasal cannula. General: This is a chronically ill-appearing, 64- year-old, male, lying in bed, in no acute distress. Cardiovascular: S1, S2 heard. No murmurs, gallops, or rubs. Regular rate and rhythm. Respiratory: Coarse breath sounds noted in both pulmonary bases. Patient not using any accessory muscles or having work of breathing. Abdomen: Soft, nontender to palpation. Bowel sounds present. No organomegaly. Extremities: No clubbing, cyanosis, or edema. Peripheral pulses present in both legs. Neurological: Patient alert and oriented x3. Moves 4 extremities. LABORATORY DATA: Pending at the time of my dictation. ASSESSMENT AND PLAN: 1. Acute on chronic respiratory failure secondary to lung carcinoma. We will continue high-flow nasal cannula. He continues to be stable. The patient has been moved to the regular floor. We will continue to monitor. 2. Bilateral lung adenocarcinoma with lymphangitic spread. Oncology is planning to do chemotherapy today. We will follow recommendations. 3. Anemia, thrombocytopenia and leukopenia secondary to chemotherapy. At least last one yesterday shows much better platelet numbers and also hemoglobin. We will continue to monitor CBC. 4. Disposition. As mentioned before, we will provide chemotherapy today and we will continue to monitor this patient closely. cc: Imtiaz Taylor MD
[2020-01-01] MEDS: XOPENEX NEB INH SCH ×3 (10:34→22:58)
[2020-01-01] MEDS: ATROVENT NEB INH SCH ×3 (10:34→22:58)
[2020-01-01] MEDS ORDERED: EMEND 150 MG in NS 145 ML IV ONE (13:30)
[2020-01-01] MEDS ORDERED: ALOXI IV ONE (14:00)
[2020-01-01] MEDS ORDERED: DECADRON IV ONE (14:15)
[2020-01-01] MEDS ORDERED: KEYTRUDA 200 MG in NS 100 ML IV ONE (14:30)
[2020-01-01] MEDS ORDERED: NS IV ONE ×2 (15:00→15:30)
[2020-01-01] MEDS ORDERED: ALIMTA IV ONE (15:00)
[2020-01-01] MEDS ORDERED: PARAPLATIN IV ONE (15:30)
--- NOTE | 2020-01-01 16:58 | HEMO/ONC PROGRESS NOTE ---
DATE: 01/01/2020 CHIEF COMPLAINT: "Waiting for my chemo." HISTORY OF PRESENT ILLNESS: Mr. Fung is hospitalized for high-flow oxygen for severe COPD and lung cancer. He has clinically improved since receiving chemotherapy. He is due for his next cycle of carboplatin, Alimta and Keytruda chemotherapy today. He denies any fevers, chills, chest pain, or increasing shortness of breath. REVIEW OF SYSTEMS: Complete review of systems negative except as per HPI. PHYSICAL EXAMINATION: General: This is a well-developed, well-nourished, man in no acute distress. He is accompanied by a family member at the bedside. Eyes: Sclerae anicteric. Conjunctivae pale. Cardiovascular: Regular rate and rhythm. Normal S1, S2. Pulmonary: Coarse bilateral breath sounds with scattered wheezing. High-flow oxygen in use. Gastrointestinal: Abdomen is soft, nontender, nondistended with normoactive bowel sounds. Extremities: No clubbing, cyanosis, or edema. 2+ pulses x4. Neurological: Alert and oriented x3. Gait not assessed as patient is in hospital bed at the time of consultation. LABORATORY DATA: Platelet count is 85,000. White count elevated. ASSESSMENT AND PLAN: 1. Metastatic non-small cell lung carcinoma: The patient is unable to leave the hospital due to need for high-flow oxygen. He will proceed with his next cycle of carboplatin, Alimta and Keytruda today. Risks and side effects were discussed, and patient agreed to proceed. He has tolerated the treatment quite well thus far. He has had some clinical improvement on treatment as well. Monitor counts weekly. 2. Thrombocytopenia: Treatment induced. Given the severity of his disease, we will proceed with his therapy today despite some mild thrombocytopenia. Monitor for bleeding. Check labs weekly. 3. Leukocytosis: Likely reactive secondary to steroids. He has no signs of infection. Continue to monitor. cc: Michelle Winn MD
[2020-01-02] MEDS: SOLU-MEDROL IV SCH ×3 (05:46→21:22)
[2020-01-02] MEDS: PROTONIX PO SCH ×2 (05:46→06:18)
[2020-01-02 07:33] LABS: HEMATOCRIT 26.6 % (42.0-52.0); HEMOGLOBIN 8.1 g/dL (14.0-18.0); LYMPH# 1.91 X1000 (1.2-3.4); LYMPH% 4.6 % (20.5-51.1); MCH 29.8 PG (27-31); MCHC 30.5 g/dL (33-37); MCV 97.8 FL (81-99); MPV 10.5 FL (7.4-10.4); PLT 73 X1000 (130-400); RBC 2.72 XMIL (4.7-6.1); WBC 41.87 X1000 (4.8-10.8)
[2020-01-02 07:59] LABS: BANDS 14 % (0-1); LYMPHS 4 % (21-51); MONO 4 % (1-9); SEGS 70 % (42-75)
[2020-01-02] MEDS: FOLIC ACID PO SCH (09:11)
[2020-01-02] MEDS: LASIX IV SCH (09:11)
[2020-01-02] MEDS: COLACE PO SCH ×2 (09:12→21:22)
--- NOTE | 2020-01-02 10:30 | PROGRESS NOTE ---
DATE: 01/02/2020 SUBJECTIVE: Patient reports feeling okay. No nausea, no vomiting. OBJECTIVE: Vital Signs: Temperature 98.2 degrees, heart rate 78, respiratory rate 18, blood pressure 120/55, O2 saturation 100% on high-flow nasal cannula. General Examination: This is a chronically ill-appearing, 64-year-old, male, lying in bed in no acute distress. Cardiovascular exam: S1, S2 heard. No murmurs, gallops, or rubs. Respiratory exam: Coarse breath sounds noted in both pulmonary bases. Patient is not using any accessory muscles or having work of breathing. Abdomen: Soft, nontender to palpation. Bowel sounds present. No organomegaly. Extremities: No clubbing, cyanosis or edema. Peripheral pulses present in both legs. Neurological exam: Patient alert and oriented x3. Moves 4 extremities. LABORATORY DATA: White cell count 41.97, hemoglobin 8.1, hematocrit 26.6, platelets 73. ASSESSMENT AND PLAN: 1. Acute on chronic respiratory failure secondary to lung carcinoma. The patient continues to require high-flow nasal cannula. He asked me today if we can try to wean off. We will try to do that. 2. Bilateral lung adenocarcinoma with lymphangitic spread. Patient has received his third cycle of chemotherapy here in the hospital because this patient continues to require high amount of oxygen. At this point, patient seems like he tolerated chemotherapy well. 3. Anemia, thrombocytopenia and leukopenia secondary to chemotherapy, aware. At this point, we are monitoring complete blood count daily. His leukocytosis is secondary to steroids/ we are going to wean off today, and also because he received Granix. We will continue to monitor. 4. Disposition: We will continue to monitor this patient closely. cc: Imtiaz Taylor MD
[2020-01-02] MEDS: XOPENEX NEB INH SCH ×3 (10:34→22:43)
[2020-01-02] MEDS: ATROVENT NEB INH SCH ×3 (10:34→22:43)
--- NOTE | 2020-01-02 18:10 | PULMONOLOGY PROGRESS NOTE ---
DATE: 01/02/2020 SUBJECTIVE: The patient is awake, alert, and conversant. He is currently on high-flow FiO2 at 40% of predicted. OBJECTIVE: The patient has been afebrile for the last 24 hours. Blood pressure 119/60, heart rate 81, respiratory rate 20, oxygen saturation 95%.HEENT: Pupils are equal and reactive. Oropharynx appears clear. Neck: Supple. Chest: Reveals crackles bilaterally. Cardiac: S1-S2. Abdomen: Soft. Extremities: Without edema. LABORATORIES: Sodium 141, potassium 3.4, chloride 99, bicarbonate 33, BUN 19, creatinine 0.6 on his last labs which were 5 days ago. White blood count is 41.87, hemoglobin 8.1, platelet count 73,000 today. IMPRESSION: A 64-year-old with 1. 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 2. Hypoxemic respiratory failure. 3. Thrombocytopenia. 4. Clinical improvement following chemotherapy. PLAN: 1. Wean oxygen as tolerated. 2. Follow up chemistries tomorrow. 3. Follow up chest x-ray tomorrow. cc: Jose Ignacio MD
[2020-01-03] MEDS: PROTONIX PO SCH (06:07)
[2020-01-03] MEDS: SOLU-MEDROL IV SCH ×3 (06:08→21:45)
--- NOTE | 2020-01-03 07:00 | Diag Imaging Result Doc PS360 ---
EXAM: CHEST-PORTABLE 01/03/2020 HISTORY: abnormal exam TECHNIQUE: AP portable at 0604 COMMENT: The alveolar opacities which were previously present bilaterally have improved. The right hemidiaphragm is now largely visible. IMPRESSION: Improved pulmonary edema and/or pneumonia. Electronically signed by Ramon Corona 01/03/2020 6:57 AM
[2020-01-03] MEDS: LASIX IV SCH (09:04)
[2020-01-03] MEDS: FOLIC ACID PO SCH (09:04)
[2020-01-03] MEDS: COLACE PO SCH ×2 (09:04→09:05)
[2020-01-03 09:33] LABS: BASO# 0.09 X1000 (0.0-0.2); BASO% 0.3 % (0.0-0.8); HEMATOCRIT 27.9 % (42.0-52.0); HEMOGLOBIN 8.5 g/dL (14.0-18.0); IMM GRAN# 3.21 X1000 (0.0-0.04); IMM GRAN% 11.9 % (0.0-0.5); LYMPH# 1.43 X1000 (1.2-3.4); LYMPH% 5.3 % (20.5-51.1); MCH 29.7 PG (27-31); MCHC 30.5 g/dL (33-37); MCV 97.6 FL (81-99); MONO# 0.77 X1000 (0.11-0.59); MONO% 2.8 % (1.7-9.3); MPV 10.6 FL (7.4-10.4); NEUT# 21.56 X1000 (1.4-6.5); NEUT% 79.7 % (42.2-75.2); PLT 77 X1000 (130-400); RBC 2.86 XMIL (4.7-6.1); WBC 27.06 X1000 (4.8-10.8)
[2020-01-03 09:54] LABS: AGAP 10; ALB/GLOB RATIO 1.2; ALBUMIN 2.9 g/dL (3.5-5.0); ALKALINE PHOSPHATASE 159 U/L (32-122); BUN 24 mg/dL (8-22); CALCIUM 8.2 mg/dL (8.8-10.2); CHLORIDE 96 mmol/L (98-107); COSMO 289; CREATININE 0.6 mg/dL (0.7-1.2); ESTIMATED GFR > 60; GLUCOSE 174 mg/dL (70-104); GOT 25 U/L (10-34); GPT 115 U/L (10-44); MAGNESIUM 1.8 mg/dL (1.5-2.7); PHOSPHORUS 3.5 mg/dL (2.7-4.5); POTASSIUM 3.4 mmol/L (3.5-5.1); SODIUM 141 mmol/L (136-145); TCO2 35 mmol/L (25-35); TOTAL BILIRUBIN < 0.15 mg/dL (0.20-1.00); TOTAL PROTEIN 5.3 g/dL (6.3-8.3)
[2020-01-03] MEDS: ATROVENT NEB INH SCH ×3 (10:23→22:51)
[2020-01-03] MEDS: XOPENEX NEB INH SCH ×3 (10:23→22:51)
[2020-01-03 10:33] LABS: BANDS 16 % (0-1); HYPOCHROM 1+; LYMPHS 8 % (21-51); SEGS 72 % (42-75)
--- NOTE | 2020-01-03 10:40 | PROGRESS NOTE ---
DATE: 01/03/2020 SUBJECTIVE: Patient reports feeling okay. He is now requiring oxygen by Venturi mask. OBJECTIVE: Vital Signs: Temperature 97.9 degrees, heart rate 82, respiratory rate 18, blood pressure 113/71, O2 saturation 100% on Venturi mask. General Examination: This is a chronically ill-appearing, 64-year-old, male, lying in bed, in no acute distress. Cardiovascular Examination: S1 and S2 heard. No murmurs, gallops, or rubs. Regular rate and rhythm. Respiratory Examination: Coarse breath sounds noted in both pulmonary bases. Patient is not using any accessory muscles or having work of breathing. Abdomen: Soft. Nontender to palpation. Bowel sounds present. No organomegaly. Extremities: No clubbing, cyanosis, or edema. Peripheral pulses present in both legs. Neurological Examination: The patient is alert, oriented x3. Moves 4 extremities. Laboratory Data: Reviewed. ASSESSMENT AND PLAN: 1. Acute on chronic respiratory failure secondary to lung adenocarcinoma. The patient is now requiring oxygen by Venturi mask. We will continue to monitor. 2. Bilateral lung adenocarcinoma with lymphangitic spread. The patient has received, so far, 3 doses of chemotherapy today. Hopefully, that will help this patient to reduce his oxygen needs. We will continue to monitor. 3. Anemia, thrombocytopenia, leukopenia secondary to chemotherapy. Aware. White cell count is very elevated because of the Granix. Thrombocytopenia and anemia stable. We will continue to monitor. 4. Disposition. We will continue to monitor this patient closely. cc: Imtiaz Taylor MD
--- NOTE | 2020-01-03 18:05 | PULMONOLOGY PROGRESS NOTE ---
DATE: 01/03/2020 SUBJECTIVE: The patient is awake, alert, and conversant. He reports he is "doing great." OBJECTIVE: Vital signs: The patient was on a 31% Venturi mask upon my arrival. She has been afebrile for the last 24 hours. Oxygen saturation 98%. Respiratory rate 16. HEENT: Pupils are equal and reactive. Oropharynx appears clear. Neck: Supple. Chest: Reveals good air entry bilaterally. Cardiac: Regular S1, regular S2. Abdomen: Soft. Extremities: Without edema. LABORATORIES: The patient has bilateral infiltrates, but they have significantly improved over the last 6 days. IMPRESSIONS: A 64-year-old with: 1. Bilateral multifocal lung cancer with lymphangitis spread. 2. Hypoxemic respiratory failure. 3. Clinical improvement following chemotherapy. DISCUSSION: A 64-year-old with problems outlined above. He has received his 3rd dose of chemotherapy. He has had significant radiographic improvement. His oxygen requirements continue to decline. PLAN: 1. Continue to wean oxygen as tolerated. The patient should be a candidate for discharge soon as he is approaching an oxygen concentration that can be obtained with a nasal cannula. 2. Continue to mobilize as tolerated. cc: Jose Ignacio MD
[2020-01-04] MEDS: PROTONIX PO SCH (06:01)
[2020-01-04] MEDS: SOLU-MEDROL IV SCH ×2 (06:01→13:26)
[2020-01-04] MEDS: FOLIC ACID PO SCH (08:38)
[2020-01-04] MEDS: LASIX IV SCH (08:38)
[2020-01-04 09:17] LABS: BASO# 0.02 X1000 (0.0-0.2); BASO% 0.2 % (0.0-0.8); HEMATOCRIT 28.7 % (42.0-52.0); HEMOGLOBIN 8.7 g/dL (14.0-18.0); IMM GRAN# 0.64 X1000 (0.0-0.04); IMM GRAN% 4.9 % (0.0-0.5); LYMPH# 0.73 X1000 (1.2-3.4); LYMPH% 5.6 % (20.5-51.1); MCH 29.5 PG (27-31); MCHC 30.3 g/dL (33-37); MCV 97.3 FL (81-99); MONO# 0.13 X1000 (0.11-0.59); NEUT# 11.56 X1000 (1.4-6.5); NEUT% 88.3 % (42.2-75.2); PLT 70 X1000 (130-400); RBC 2.95 XMIL (4.7-6.1); RDW 14.1 % (11.5-14.5); WBC 13.08 X1000 (4.8-10.8)
[2020-01-04 10:02] LABS: BANDS 10 % (0-1); LYMPHS 8 % (21-51); MONO 6 % (1-9); SEGS 74 % (42-75)
[2020-01-04] MEDS: XOPENEX NEB INH SCH (10:02)
[2020-01-04] MEDS: ATROVENT NEB INH SCH (10:02)
[2020-01-04 11:22] VITALS: BP 136/66
--- NOTE | 2020-01-05 11:15 | DISCHARGE SUMMARY ---
ADMISSION DATE: 11/25/2019 DISCHARGE DATE: 01/05/2020 DISCHARGE DIAGNOSES: 1. Acute hypoxemic respiratory failure. 2. 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 3. Chronic obstructive pulmonary disease exacerbation, resolved. CONSULTATIONS: 1. Dr. Ignacio from Pulmonary. 2. Dr. Ordaz from Hematology Oncology. PROCEDURES: 1. CT of the chest done on admission showed worsening alveolar consolidation and pleural effusions and interstitial versus fibrosis. 2. Abdomen and pelvis CT showed indeterminate bilateral adrenal gland nodules, severe constipation and severe body wall edema with trace pelvic free fluid. 3. Echocardiogram Doppler showed the ejection fraction was 63%. No pericardial effusion. HOSPITAL COURSE: This patient basically was readmitted to the hospital after a week. He was initially diagnosed with eosinophilic pneumonia. He went home with oral antibiotics and steroids but his condition started getting worse, so he came back to the emergency department. Here, he was seen by Dr. Ignacio who performed a bronchoscopy and the final result was poorly differentiated bronchoalveolar lung cancer. Since admission, the patient was placed on high-flow nasal cannula and BiPAP. His oxygen needs have been really high during all of his stay at the hospital. That started getting better during the last couple of days. Because of that condition and the difficulty of discharging him with that high amount of oxygen, he stayed in the hospital and so far during his hospitalization, he received 3 cycles of chemotherapy. After the last one was complete, his oxygen needs started to improve to high-flow nasal cannula, Ventimask and on the day of discharge, he was requiring only 2.5 L of oxygen by nasal cannula. The patient clinically tolerated the chemotherapy very well. Not feeling really nauseated or having any pain. At some point during his treatment, developed leukopenia and thrombocytopenia and anemia but those resolved with transfusion. At this time, patient is feeling much better, he is able to walk around, so he is going to be discharged in stable condition. DISCHARGE PHYSICAL EXAMINATION: Vital signs: Temperature 98.5 degrees, heart rate 64, respiratory rate 18, blood pressure 136/66, O2 saturation 94% on 2.5 L nasal cannula. General: This is a chronically ill-looking, 64-year-old male, lying in bed, in no acute distress. Cardiovascular: S1, S2 heard. No murmurs, gallops, or rubs. Regular rate and rhythm. Respiratory: Coarse breath sounds noted in both pulmonary bases. Patient not using any accessory muscles. Abdomen: Soft, nontender to palpation. Bowel sounds present. No organomegaly. Extremities: No clubbing, cyanosis, or edema. Peripheral pulses present in both legs. Neurological: The patient alert and oriented x3. Moves 4 extremities. DISCHARGE DISPOSITION: Patient is going home with self care. MEDICATIONS: 1. Folic acid 1 tablet p.o. daily. 2. Furosemide 20 mg 1 tablet p.o. daily. 3. Prednisone take 4 tablets p.o. daily for 3 days, then 3 tablets p.o. daily for 3 days, then 2 tablets p.o. daily for 3 days, then 1 tablet p.o. daily for 3 days, then discontinue. FOLLOWUP: Follow up with his thermodynamics engineer oncologist, Dr. Ordaz, in a week. cc: Imtiaz Taylor MD
== END 2020-01-04 13:53 | disposition home health service (06) | DRG 166 ==
LOC: ED 03:12 → SUATTDRO 06:11 → EDIPHOLD 06:11 → 3N 15:50 → ICU 11-26 10:34 → 2N 12-02 12:20 → 3N 12-03 19:45 → 2N 12-10 19:45 → ICU 12-11 13:00 → 2N 12-24 11:49 → 3N 12-31 20:34
PROVIDERS: ATTEND Internal Medicine